=== PATIENT | male | born 1950 | race Caucasian/White ===

== ENCOUNTER → 2016-05-09 | Outpatient (CLI) | payer BC ==
[~2016-05-09] MED LIST: ACET-1257 PO; B-CO-25 PO; CARV25TA2 PO; CHOL1CAP57 PO; CHOL4POW3 PO; CRDCD240 PO; CRG125 PO; DIVA500T3 PO; DXY100 PO; ELQ25 PO; FURO-85 PO; GARL500T PO; GLC/500 PO; GLUCTAB32 PO; HYDR12.55 PO; LEVO1CAP6 PO; LEVO50TA6 PO; LPT40 PO; MISCTAB78 PO; MULT-506 PO; OMEG10007 PO; POTA-74 PO; PRED10TA PO; PRS5 PO; SPRIN INH; SYMIN INH; TAMS0.4C38 PO
--- NOTE | 2016-05-09 16:04 | DIAGNOSTIC IMAGING REPORT ---
SINGLE VIEW PELVIS; SINGLE VIEW RIGHT HIP CLINICAL HISTORY: Right hip pain. FINDINGS: An AP view of the pelvis and a frog-leg view of the right hip are compared to study dated 08/26/2015. The skeletal structures appear osteopenic. A left hip arthroplasty is unchanged in position. There is moderate arthritic change in the right hip with bony overgrowth along the acetabular roof and mild sclerosis. This is similar in appearance to the 08/26/2015 examination. Mild sclerotic change is present in the sacroiliac joints. The overlying soft tissues are within normal limits. Surgical clips are present along the spermatic cord bilaterally. A pelvic phlebolith is identified. IMPRESSION: 1. No acute bony abnormality is seen in the hips or pelvis. 2. Moderate arthritic change in the right hip is similar in appearance to the 08/26/2015 examination. Electronically signed by: Cody Morse M.D. 05/09/2016 4:02 PM Dictated Date/Time: 05/09/2016 4:01 PM
== END | disposition home or self-care (01) ==
LOC: C.RDSM 08:00
PROVIDERS: ATTEND Physical Medicine & Rehabilitation Sports Medicine
DX: M16.11 Unilateral primary osteoarthritis, right hip (principal)

== ENCOUNTER → 2016-11-28 | Outpatient (CLI) | payer BC ==
[~2016-11-28] VITALS: Ht 177.8 cm; Wt 115.3 kg
[2016-11-28 13:59] VITALS: BP 155/90; PULSE 105; Ht 177.8 cm; Wt 115.3 kg
== END | disposition home or self-care (01) ==
LOC: C.NEUR 13:45
PROVIDERS: ATTEND Internal Medicine Pulmonary Disease
DX: G47.33 Obstructive sleep apnea (adult) (pediatric) (principal)

== ENCOUNTER 2016-11-29 12:52 | Inpatient (IN) | payer BC, OTHER ==
[~2016-11-29] VITALS: Ht 177.8 cm; Wt 110.4 kg
[2016-11-29] VITALS (20 sets, daily range): BP systolic 97–146; BP diastolic 60–87; PULSE 60–159; TEMP 37; O2SAT 86–100; BMI 36.6
[~2016-11-29 12:52] MED LIST changes: -CARV25TA2 PO; -CHOL1CAP57 PO; -CRDCD240 PO; -CRG125 PO; -DXY100 PO; -ELQ25 PO; -FURO-85 PO; -GARL500T PO; -GLC/500 PO; -POTA-74 PO; -PRED10TA PO; -SPRIN INH; -SYMIN INH
[2016-11-29] MEDS ORDERED: ALBUT/IPRATROP 3MG/0.5MG NEB 3 ML VIAL INH STA ×3 (13:09→14:23)
[2016-11-29] MEDS ORDERED: METHYLPREDNISOLONE 125 MG VIAL IV STA (13:09)
--- NOTE | 2016-11-29 13:25 | EMERGENCY ROOM VISIT NOTE ---
History First contact with patient: 13:02 Chief Complaint: SHORTNESS OF BREATH Stated Complaint: SOB, LABORED BREATHING Nursing Triage Summary: triage note: Pt ambulatory to triage. pt states "i guess you could say as a result of continued smoking i am having increased shortness of breath." pt reports increased shorntess of breath over the past day and productive cough with clear sputum. History of Present Illness The patient is a 66 year old male who presents to the Emergency Room with complaints of shortness of breath. The patient states that he has some shortness of breath and coughing at baseline that he attributes to the fact that he is a chronic, heavy smoker, however he states over the past few days that his symptoms have become worse. He is increasingly short of breath with exertion and at rest, and states if he lies flat it causes him to go into coughing fits. He is coughing up clear to white phlegm. He denies any chest pain, nausea or vomiting, diaphoresis, dizziness or syncope, or fevers/chills. He denies any leg pain or swelling, recent long travel, recent injury or surgery , or history of blood clots. He does report a history of some broken ribs and a partially collapsed lung in the past, as well as an aortic valve repair by Dr. Duke. He does not use oxygen at home. He reports that he has continued to smoke heavily in spite of being told by his provider to quit, he states he has not been diagnosed with COPD and does not use any daily inhalers. Review of Systems A complete 10 point review of systems was reviewed with the patient with pertinent positives and negatives as per history of present illness. All else were negative. 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 (10) HYPOTHYROIDISM NOS (11) OBESITY, NOS (12) OSTEOARTHROS NOS-PELVIS (13) Parkinson disease (14) PURE HYPERCHOLESTEROLEM Family History Hypertension Social History Smoking Status: Current Every Day Smoker Alcohol Use: none Drug Use: none Marital Status: Housing Status: lives alone Occupation Status: retired Current/Historical Medications Scheduled Atorvastatin (Atorvastatin Calcium), 40 MG PO QPM B-Complex W/ Folic Acid (Super B Complex Maxi), 1 TAB PO QAM Cholecalciferol (Vitamin D3), 1,000 UNITS PO DAILY Cholestyramine (Cholestyramine), 1 DOSE PO QAM Divalproex Sodium (Depakote Er), 500 MG PO QPM Divalproex Sodium (Depakote Er), 1,000 MG PO QAM Finasteride (Finasteride), 5 MG PO QAM Fish Oil (Alden-3), 1,000 MG PO QAM Garlic (Garlic), 500 MG PO DAILY Frgxokggbyi-Turbgzqgpfn-Xe Cho (Glucosamine Chondroitin &), 1 TAB PO QAM Hydrochlorothiazide (Hydrochlorothiazide), 1 TAB PO QAM Levocarnitine L-Tartrate (L-Carnitine), 1,000 MG PO TID Levothyroxine Sodium (Levothyroxine Sodium), 50 MCG PO QAM Misc Natural Products (Osteo Bi-Flex Advanced Do), 1 TAB PO QAM Multivitamin (Multivitamin), 1 TAB PO QAM Tamsulosin Hcl (Flomax), 0.4 MG PO QAM Scheduled PRN Acetaminophen (Tylenol Extra Strength), 500-1,000 MG PO Q6H PRN for Pain Physical Exam Vital Signs Date Time Temp Pulse Resp B/P (MAP) Pulse Ox O2 Delivery O2 Flow Rate FiO2 11/29/16 17:40 112 20 115/69 98 BiPAP 11/29/16 17:39 91 BiPAP 4.0 100 11/29/16 17:16 159 91 100 11/29/16 17:16 162 29 169/106 95 BiPAP 11/29/16 16:50 111 27 191/115 90 Nebulizer 11/29/16 15:07 95 22 163/103 95 Nasal Cannula 4.0 11/29/16 14:00 94 Nasal Cannula 4.0 11/29/16 14:00 94 Nasal Cannula 4.0 11/29/16 13:29 98 11/29/16 12:58 36.7 104 26 173/88 90 Room Air Physical Exam CONSTITUTIONAL: Patient is in mild distress, with labored breathing and tachypneic, respiratory rate 20-30, however he is able to speak in full sentences. He appears mildly dehydrated. Alert and oriented X 4 with normal affect. HEENT: Normocephalic, atraumatic. Pupils equal, round and reactive to light, EOMI. TMs normal. Pharynx normal. Dry mucous membranes NECK: Supple, full active range of motion without discomfort. RESPIRATORY: Diminished throughout with expiratory wheezing, no crackles, rhonchi or stridor. Equal expansion bilaterally. CARDIOVASCULAR: Tachycardic. Regular rhythm with no murmurs, rubs or gallops. Normal peripheral perfusion. No peripheral edema. GASTROINTESTINAL: Soft, nontender, distended, obese. Bowel sounds present in all quadrants. MUSCULOSKELETAL: Full range of motion of all joints without discomfort. INTEGUMENTARY: No rash or other significant dermatologic conditions noted. NEUROLOGIC: Cranial nerves II-XII grossly intact. No focal neurologic deficits noted. Medical Decision & Procedures ER Provider Diagnostic Interpretation: CHEST ONE VIEW PORTABLE CLINICAL HISTORY: EVALUATE RESPIRATORY DISTRESS. DYSPNEA dyspnea COMPARISON STUDY: 09/01/2014 FINDINGS: Increased cardiac size and pulmonary vasculature compared to the prior study. Diaphragms smooth. Very slight body of lateral gastric angle. IMPRESSION: Congestive heart failure. ----- (CHEST FOR PE) ANGIO WITH CT DOSE: 667.82 mGy.cm HISTORY: Chest pain dyspnea TECHNIQUE: Multiaxial CT images of the chest were performed following the intravenous administration of contrast to evaluate the pulmonary arteries. Maximal intensity projection images were also obtained. A dose lowering technique was utilized adhering to the principles of ALARA. COMPARISON STUDY: 06/11/2013 FINDINGS: No evidence of pulmonary embolus. Prominent bronchovascular markings throughout both hemithoraces. Several scattered areas of subsegmental atelectatic change. Mild fatty infiltration of liver. IMPRESSION: 1. Study is negative for pulmonary embolus . 2. findings of congestive failure with scattered areas of subsegmental atelectasis. Laboratory Results 11/29/16 13:48 Red Blood Count 4.38, Mean Corpuscular Volume 95.4, Mean Corpuscular Hemoglobin 32.6, Mean Corpuscular Hemoglobin Concent 34.2, Mean Platelet Volume 9.3, Neutrophils (%) (Auto) 72.2, Lymphocytes (%) (Auto) 17.2, Monocytes (%) (Auto) 9.2, Eosinophils (%) (Auto) 0.8, Basophils (%) (Auto) 0.2, Neutrophils # (Auto) 8.08, Lymphocytes # (Auto) 1.92, Monocytes # (Auto) 1.03, Eosinophils # (Auto) 0.09, Basophils # (Auto) 0.02 11/29/16 13:48 Test 11/29/16 13:48 11/29/16 15:38 11/29/16 17:01 White Blood Count 11.19 K/uL (4.8-10.8) Red Blood Count 4.38 M/uL (4.7-6.1) Hemoglobin 14.3 g/dL (14.0-18.0) Hematocrit 41.8 % (42-52) Mean Corpuscular Volume 95.4 fL (80-100) Mean Corpuscular Hemoglobin 32.6 pg (25-34) Mean Corpuscular Hemoglobin Concent 34.2 g/dl (32-36) Platelet Count 231 K/uL (130-400) Mean Platelet Volume 9.3 fL (7.4-10.4) Neutrophils (%) (Auto) 72.2 % Lymphocytes (%) (Auto) 17.2 % Monocytes (%) (Auto) 9.2 % Eosinophils (%) (Auto) 0.8 % Basophils (%) (Auto) 0.2 % Neutrophils # (Auto) 8.08 K/uL (1.4-6.5) Lymphocytes # (Auto) 1.92 K/uL (1.2-3.4) Monocytes # (Auto) 1.03 K/uL (0.11-0.59) Eosinophils # (Auto) 0.09 K/uL (0-0.5) Basophils # (Auto) 0.02 K/uL (0-0.2) RDW Standard Deviation 48.1 fL (36.4-46.3) RDW Coefficient of Variation 13.9 % (11.5-14.5) Immature Granulocyte % (Auto) 0.4 % Immature Granulocyte # (Auto) 0.05 K/uL (0.00-0.02) Prothrombin Time 10.7 SECONDS (9.0-12.0) Prothromb Time International Ratio 1.0 (0.9-1.1) Activated Partial Thromboplast Time 26.6 SECONDS (21.0-31.0) Partial Thromboplastin Ratio 1.0 Anion Gap 5.0 mmol/L (3-11) Est Creatinine Clear Calc Drug Dose 160.2 ml/min Estimated GFR () 123.2 Estimated GFR (Non- 106.3 BUN/Creatinine Ratio 9.8 (10-20) Calcium Level 9.3 mg/dl (8.5-10.1) Total Bilirubin 0.6 mg/dl (0.2-1) Aspartate Amino Transf (AST/SGOT) 16 U/L (15-37) Alanine Aminotransferase (ALT/SGPT) 33 U/L (12-78) Alkaline Phosphatase 49 U/L (45-117) Troponin I 0.031 ng/ml (0-0.045) Pro-B-Type Natriuretic Peptide 394 pg/ml (0-900) Total Protein 7.4 gm/dl (6.4-8.2) Albumin 3.6 gm/dl (3.4-5.0) Globulin 3.8 gm/dl (2.5-4.0) Albumin/Globulin Ratio 0.9 (0.9-2) Thyroid Stimulating Hormone (TSH) 2.530 uIu/ml (0.300-4.500) Urine Color DK YELLOW Urine Appearance CLEAR (CLEAR) Urine pH 6.0 (4.5-7.5) Urine Specific Martin 1.022 (1.000-1.030) Urine Protein 1+ (NEG) Urine Glucose (UA) TRACE (NEG) Urine Ketones 1+ (NEG) Urine Occult Blood TRACE (NEG) Urine Nitrite NEG (NEG) Urine Bilirubin NEG (NEG) Urine Urobilinogen NEG (NEG) Urine Leukocyte Esterase NEG (NEG) Urine WBC (Auto) 1-5 /hpf (0-5) Urine RBC (Auto) 5-10 /hpf (0-4) Urine Hyaline Casts (Auto) 1-5 /lpf (0-5) Urine Epithelial Cells (Auto) 10-20 /lpf (0-5) Urine Bacteria (Auto) NEG (NEG) Arterial Blood pH 7.31 (7.35-7.45) Arterial Blood Partial Pressure CO2 45 mmHg (35-46) Arterial Blood Partial Pressure O2 45 mm/Hg (80-95) Arterial Blood HCO3 22 mmol/L (19-24) Arterial Blood Oxygen Saturation 74.9 % (90-95) Arterial Blood Base Excess -4.1 mEq/L (-9-1.8) Arterial Blood Gas Delivery NEBULIZER Eh Test POS (POS) Medications Administered Medications (Trade) Dose Ordered Sig/Cesar Route Start Time Stop Time Status Last Admin Dose Admin Albuterol/ Ipratropium (Duoneb) 3 ml NOW STAT INH 11/29/16 13:09 11/29/16 13:12 DC 11/29/16 13:33 3 ML Methylprednisolone Sodium Succinate (Solu-Medrol IV) 125 mg NOW STAT IV 11/29/16 13:09 11/29/16 13:12 DC 11/29/16 13:33 125 MG Albuterol/ Ipratropium (Duoneb) 3 ml NOW STAT INH 11/29/16 14:23 11/29/16 14:25 DC 11/29/16 16:49 3 ML Albuterol/ Ipratropium (Duoneb) 3 ml NOW STAT INH 11/29/16 14:23 11/29/16 14:25 DC 11/29/16 16:49 3 ML Furosemide (Lasix Inj) 40 mg NOW STAT IV 11/29/16 16:38 11/29/16 16:39 DC 11/29/16 17:35 40 MG Nitroglycerin (Nitrostat Tab) 0.4 mg NOW STAT SL 11/29/16 16:57 11/29/16 16:59 DC 11/29/16 17:02 0.4 MG Nitroglycerin (Nitroglycerin 2% Oint) 1 inch NOW ONCE EXT 11/29/16 17:00 11/29/16 17:01 DC 11/29/16 17:02 1 INCH Nitroglycerin (Nitrostat Tab) 0.4 mg NOW STAT SL 11/29/16 17:11 11/29/16 17:12 DC 11/29/16 17:15 0.4 MG Diltiazem HCl (Cardizem Inj) 10 mg NOW STAT IV 11/29/16 17:19 11/29/16 17:20 DC 11/29/16 17:32 10 MG Diltiazem HCl 125 mg/Dextrose 125 ml @ 0 mls/hr Q0M PRN IV 11/29/16 17:30 12/29/16 17:29 11/29/16 17:37 5 MLS/HR ECG Indication: SOB/dyspnea Rate (beats per minute): 97 Rhythm: normal sinus Findings: no acute ischemic change, no ectopy, other (possible left atrial enlargement, Q waves noted in inferior leads which is not new.) Change: no significant change (when compared to EKG from 08/26/2015) Medical Decision CC: Patient presenting with complaint of shortness of breath Interpretation of Labs: Mild leukocytosis, no anemia, hyponatremia, normal renal function, normal liver enzymes and lipase, troponin and BNP within normal limits. ABG with normal pH, currently compensated respiratory acidosis. Differential Diagnosis: Includes, but not limited to COPD exacerbation, CHF, bronchitis, pneumonia, asthma, PE, pulmonary edema, pleural effusion, pneumothorax, aortic dissection Medication Reconciliation: I attest that I have personally reviewed the patient' s current medication list. Vital signs review: I reviewed the patient's vital signs and interpret them as follows: T: Afebrile; BP: Hypertensive; HR: Tachycardic; RR: Tachypneic; Pulse Ox: Hypoxic on room air, improved on 4 L oxygen. Summary: Patient was evaluated at bedside, history of physical exam performed. Patient is noted to be in mild respiratory distress, tachypneic and with labored breathing. He is able to speak in full sentences. He is noted to be 84% on room air on arrival to patient room, placed on 4 L of oxygen and came up to 95% with reported improved comfort. Lungs are diminished throughout, moderate expiratory wheezing heard. No crackles or rales. Heart sounds are normal with no murmurs or gallops, tachycardic rate in the low 100s. Normal pulses all 4 extremities. No peripheral edema noted on exam. EKG reviewed at bedside, normal sinus rhythm with no acute ischemic changes. Orders were placed at bedside for labs including an ABG, UA, chest x-ray, CT chest to evaluate for PE. Duonebs and Solu-Medrol to treat for suspected COPD exacerbation. Patient discussed with Dr. Conley, who agrees with my assessment and plan. Labs reviewed as above, no significant abnormalities. Compensated respiratory acidosis on ABG. Troponin and BNP are WNL. Chest x-ray reviewed, consistent with pulmonary congestion/condition heart failure. CT of the chest pending to evaluate for PE, if this is negative, will plan to diurese the patient. On reassessment after first DuoNeb, patient appears to be somewhat improved and breathing a little more comfortably. Patient to CT. 6:30PM - I reassessed patient, found him to be in the room but not on monitor and on only 2L O2 from transport. Pt desating to 82%, I placed him on 6L and repositioned him, but he continues to have sats of 86-87% and appears more labored. Lungs remain severely diminished with expiratory wheezes. CTA of the chest reviewed, no PE but does appear to have pulmonary congestion consistent with CHF. BP 195/108, respiratory rate 36, heart rate continues to be slightly tachycardic low 100s and sinus rhythm on the monitor. Patient also becoming more anxious. SL ntg and nitro paste ordered. 40mg IV Lasix ordered. Respiratory therapy called to place patient on BiPAP. I spoke with Dr. Mead, who agrees to evaluate the patient for admission. Dr. Conley made aware of patient's clinical condition and my plans for his admission, he agrees. While patient being placed on BiPAP, he went into rapid A. fib with rate in the 180s. Patient received 2 SL nitro, and Cardizem drip was ordered per Dr. Conley, who was also at bedside to evaluate the patient. Dr. Conley spoke with Dr. Mead, patient will be placed in ICU. Patient reassessed multiple times throughout ED stay, he is improving clinically , hypertension resolving with Cardizem drip, he is tolerating BiPAP well with sats 98% and he is much less labored at this time. Heart rate also improved with rates ranging from 110 to 150s. He will continue to be closely monitored, currently stable at time of admission. Medication Reconcilliation Current Medication List: was personally reviewed by me Blood Pressure Screening Patient's blood pressure: Elevated blood pressure Impression Primary Impression: Congestive heart failure Additional Impression: Rapid atrial fibrillation Critical Care I have personally spent greater than 45 minutes of critical care time in the direct management of this patient. This includes bedside care, interpretation of diagnostic studies, and testing, discussion with consultants, patient, and family members, and other required patient management activities. This 45 minutes is in excess of all separately billable procedures. Departure Information Dispostion Admitted as an inpatient Condition FAIR (critical, but stable) Referrals Helen Lion M.D. (PCP) Patient Instructions My [facility] Problem Qualifiers Primary Impression: Congestive heart failure Congestive heart failure type: unspecified congestive heart failure type Congestive heart failure chronicity: acute Qualified Codes: I50.9 - Heart failure, unspecified
[2016-11-29] MEDS ORDERED: OPTIRAY 320 IV PRN (13:30)
[2016-11-29 13:58] LABS: BASO % 0.2 %; BASO ABS # 0.02 K/uL (0-0.2); COMPLETE YES; EOS % 0.8 %; HEMATOCRIT 41.8 % (42-52); IG% 0.4 %; LYMPH % 17.2 %; LYMPH ABS # 1.92 K/uL (1.2-3.4); MEAN CELL VOLUME 95.4 fL (80-100); MEAN CORPUSCULAR HEMOGLOBIN 32.6 pg (25-34); MEAN CORPUSCULAR HGB CONC 34.2 g/dl (32-36); MEAN PLATELET VOLUME 9.3 fL (7.4-10.4); MONO % 9.2 %; NEUT % 72.2 %; PLATELET COUNT 231 K/uL (130-400); RED BLOOD COUNT 4.38 M/uL (4.7-6.1); WHITE BLOOD COUNT 11.19 K/uL (4.8-10.8)
--- NOTE | 2016-11-29 14:02 | DIAGNOSTIC IMAGING REPORT ---
CHEST ONE VIEW PORTABLE CLINICAL HISTORY: EVALUATE RESPIRATORY DISTRESS. DYSPNEA dyspnea COMPARISON STUDY: 09/01/2014 FINDINGS: Increased cardiac size and pulmonary vasculature compared to the prior study. Diaphragms smooth. Very slight body of lateral gastric angle. IMPRESSION: Congestive heart failure The above report was generated using voice recognition software. It may contain grammatical, syntax or spelling errors. Electronically signed by: Mikal Hill M.D. 11/29/2016 2:01 PM Dictated Date/Time: 11/29/2016 2:01 PM
[2016-11-29 14:05] LABS: ARTERIAL BLD GAS O2 SATURATION 94.2 % (90-95); ARTERIAL BLOOD GAS BASE EXCESS 4.5 mEq/L (-9-1.8); ARTERIAL BLOOD GAS HCO3 30 mmol/L (19-24); ARTERIAL BLOOD GAS PO2 74 mm/Hg (80-95)
[2016-11-29 14:06] LABS: ALLEN TEST POS (POS)
[2016-11-29 14:07] LABS: O2 ADMINISTRATION 4L
[2016-11-29] MEDS ORDERED: CHOL1CAP57 PO (14:10)
[2016-11-29] MEDS ORDERED: GARL500T PO (14:10)
[2016-11-29 14:15] LABS: BUN/CREATININE RATIO 9.8 (10-20); CALCIUM 9.3 mg/dl (8.5-10.1); CREATININE 0.57 mg/dl (0.60-1.40); POTASSIUM 3.9 mmol/L (3.5-5.1)
[2016-11-29 14:20] LABS: ALB/GLOB RATIO 0.9 (0.9-2); PROTHROMBIN TIME (PATIENT) 10.7 SECONDS (9.0-12.0)
--- NOTE | 2016-11-29 14:34 | EMERGENCY ROOM VISIT NOTE ---
ED Visit Note First contact with patient: 13:02 The patient was seen and examined with SAE Pope. I agree with the history, physical and findings. Please see the note for disposition and details. I evaluated patient. He was doing relatively well initially after receiving the nebulizer treatments but did have increased work of breathing. Chest x-ray was concerning. The patient underwent CT imaging. No PE was noted no pneumonia but there was concerns for pulmonary edema by radiology report. The patient had increasing shortness of breath and clinically worsened. He was hypoxic. He had to be started on BiPAP. The patient had 2 doses of subungual nitroglycerin given. Nitro paste was applied. Repeat ECG was performed and found the patient to have developed a rapid atrial fibrillation. The patient was started on IV Cardizem drip. I did consult with internal medicine and recommend the patient be admitted to the ICU. The patient was probably evaluated by internal medicine. On reassessment the patient's vital signs improved. He is feeling much better. His hypoxia resolved. I have personally spent greater than 30 minutes of critical care time in the direct management of this patient. This includes bedside care, interpretation of diagnostic studies, and testing, discussion with consultants, patient, and other required patient management activities. This 30 minutes is in excess of all separately billable procedures.
[2016-11-29 16:04] LABS: URINE APPEARANCE CLEAR (CLEAR); URINE BILIRUBIN NEG (NEG); URINE COLOR DK YELLOW; URINE NITRITE NEG (NEG); URINE SPECIFIC GRAVITY 1.022 (1.000-1.030); UROBILINOGEN NEG (NEG)
[2016-11-29 16:07] LABS: MANUAL MICROSCOPIC REQUIRED? NO; REVIEW REQ? NO
--- NOTE | 2016-11-29 16:24 | DIAGNOSTIC IMAGING REPORT ---
(CHEST FOR PE) ANGIO WITH CT DOSE: 667.82 mGy.cm HISTORY: Chest pain dyspnea TECHNIQUE: Multiaxial CT images of the chest were performed following the intravenous administration of contrast to evaluate the pulmonary arteries. Maximal intensity projection images were also obtained. A dose lowering technique was utilized adhering to the principles of ALARA. COMPARISON STUDY: 06/11/2013 FINDINGS: No evidence of pulmonary embolus. Prominent bronchovascular markings throughout both hemithoraces. Several scattered areas of subsegmental atelectatic change. Mild fatty infiltration of liver. IMPRESSION: 1. Study is negative for pulmonary embolus . 2. findings of congestive failure with scattered areas of subsegmental atelectasis. The above report was generated using voice recognition software. It may contain grammatical, syntax or spelling errors. Electronically signed by: Mikal Hill M.D. 11/29/2016 4:23 PM Dictated Date/Time: 11/29/2016 4:20 PM
[2016-11-29] MEDS ORDERED: NITROGLYCERIN 0.4 MG SL PER TAB CHARGE SL STA ×2 (16:57→17:11)
[2016-11-29] MEDS ORDERED: NITROGLYCERIN OINT 2% 1GM PACKET EXT ONE (17:00)
[2016-11-29] MEDS: FUROSEMIDE 40 MG/4 ML VIAL IV STA ×2 (17:03→17:35)
[2016-11-29 17:14] LABS: ARTERIAL BLD GAS O2 SATURATION 74.9 % (90-95); ARTERIAL BLOOD GAS BASE EXCESS -4.1 mEq/L (-9-1.8); ARTERIAL BLOOD GAS HCO3 22 mmol/L (19-24); ARTERIAL BLOOD GAS PO2 45 mm/Hg (80-95); ARTERIAL BLOOD GAS pH 7.31 (7.35-7.45)
[2016-11-29 17:15] LABS: ALLEN TEST POS (POS); O2 ADMINISTRATION NEBULIZER
[2016-11-29] MEDS ORDERED: DILTIAZEM BOLUS / DRIP IV STA ×2 (17:19→17:46)
[2016-11-29] MEDS ORDERED: DILTIAZEM HCL 5 MG/ML 5 ML VIAL IV STA (17:19)
[2016-11-29] MEDS: DILTIAZEM HCL INJ 125 MG in DEXTROSE 5% 100ML IV PRN (17:37)
[2016-11-29] MEDS ORDERED: MoRPHine SULFATE 4 MG/ML 1 ML CARP\\VIAL IV PRN (17:45)
[2016-11-29] MEDS ORDERED: LEVALBUTEROL 1.25MG/0.5ML NEB INH PRN (17:45)
[2016-11-29] MEDS ORDERED: ACETAMINOPHEN 325 MG TAB PO PRN (17:45)
--- NOTE | 2016-11-29 18:28 | History and Physical ---
History & Physical Date & Time of Service: Nov 29, 2016 at 17:40 Chief Complaint: Sob, Labored Breathing Primary Care Physician: Helen Lion M.D. History of Present Illness Source: patient 66 y/o M Hx Bipolar disease, Hypothyroidism, morbid obesity, HTN, HPL, BPH, heavy smoker. Pt presents with a chief complaint of progressive SOB and productive cough. He was notably hypoxic on arrival to the ER, exhibiting labored breathing and wheezing on exam. He had not complained of CP, N/V, fevers. He was placed on BIPAP and sent for a CTA which did not show a PE and was consistent with pulmonary edema. The pt does not have a history of CHF. He was treated for CHF and also for suspected COPD in the ER. While in the ER he developed rapid AF at a rate of up to 180. He remains potentially unstable at the time of admission and will be assigned t the ICU as a result. The pt is a poor historian and could not provide extensive detail regarding his PMH. 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 Status: Chronic (9) HYPOTHYROIDISM NOS Status: Chronic (10) OBESITY, NOS Status: Chronic (11) OSTEOARTHROS NOS-PELVIS Status: Chronic (12) Parkinson disease Status: Chronic (13) PURE HYPERCHOLESTEROLEM Status: Chronic Family History Hypertension Could not obtain Social History Smokes 2 pack daily for > 20 years Smoking Status: Current Every Day Smoker Drug Use: none Marital Status: Occupational Status: retired Immunizations History of Influenza Vaccine: Yes History of Tetanus Vaccine?: Yes History of Pneumococcal: Yes History of Hepatitis B Vaccine: Unknown Multi-Drug Resistant Organisms History of MDRO: No Allergies Coded Allergies: Lamotrigine (Verified Allergy, Intermediate, RASH ON LOWER LEGS, 11/29/16) [place] (Verified Adverse Reaction, Unknown, GI upset, 11/29/16) Venlafaxine (Verified Adverse Reaction, Unknown, hypertension, 11/29/16) [employer] Ziprasidone (Verified Adverse Reaction, Unknown, RHYS, 11/29/16) Home Medications Scheduled Atorvastatin (Atorvastatin Calcium), 40 MG PO QPM B-Complex W/ Folic Acid (Super B Complex Maxi), 1 TAB PO QAM Cholecalciferol (Vitamin D3), 1,000 UNITS PO DAILY Cholestyramine (Cholestyramine), 1 DOSE PO QAM Divalproex Sodium (Depakote Er), 500 MG PO QPM Divalproex Sodium (Depakote Er), 1,000 MG PO QAM Finasteride (Finasteride), 5 MG PO QAM Fish Oil ([place]-3), 1,000 MG PO QAM Garlic (Garlic), 500 MG PO DAILY Ecpabxpiwoo-Gvsygyiknbr-Ro Cho (Glucosamine Chondroitin &), 1 TAB PO QAM Hydrochlorothiazide (Hydrochlorothiazide), 1 TAB PO QAM Levocarnitine L-Tartrate (L-Carnitine), 1,000 MG PO TID Levothyroxine Sodium (Levothyroxine Sodium), 50 MCG PO QAM Misc Natural Products (Osteo Bi-Flex Advanced Do), 1 TAB PO QAM Multivitamin (Multivitamin), 1 TAB PO QAM Tamsulosin Hcl (Flomax), 0.4 MG PO QAM Scheduled PRN Acetaminophen (Tylenol Extra Strength), 500-1,000 MG PO Q6H PRN for Pain Review of Systems Constitutional: No fever, No chills, No sweats Eyes: No worsening of vision, No eye pain ENT: No hearing loss Respiratory: + cough, + sputum, + wheezing, + shortness of breath, + dyspnea on exertion, + dyspnea at rest Cardiovascular: + orthopnea, No chest pain Abdomen: No pain, No nausea, No vomiting Musculoskeletal: No joint pain Genitourinary - Male: No hematuria, No dysuria, No urinary frequency, No urinary urgency Neurologic: No memory loss, No paralysis, No weakness Psychiatric: No depression symptoms Endocrine: No fatigue Hematologic / Lymphatic: No abnormal bleeding/bruising Integumentary: No rash Allergic / Immunologic: No environmental allergies Physical Exam Vital Signs Date Time Temp Pulse Resp B/P (MAP) Pulse Ox O2 Delivery O2 Flow Rate FiO2 11/29/16 17:16 159 91 100 11/29/16 17:16 162 29 169/106 95 BiPAP 11/29/16 16:50 111 27 191/115 90 Nebulizer 11/29/16 15:07 95 22 163/103 95 Nasal Cannula 4.0 11/29/16 14:00 94 Nasal Cannula 4.0 11/29/16 14:00 94 Nasal Cannula 4.0 11/29/16 13:29 98 11/29/16 12:58 36.7 104 26 173/88 90 Room Air General Appearance: + mild distress, + obese Head: normocephalic, atraumatic Eyes: normal inspection ENT: normal ENT inspection, pharynx normal Neck: supple, + pertinent finding (JVD exam limited by habitus) Respiratory/Chest: chest non-tender, lungs clear, no accessory muscle use Cardiovascular: no murmur, normal peripheral pulses, + tachycardia, + irregularly irregular Abdomen/GI: normal bowel sounds, non tender, + distended Back: normal inspection, no CVA tenderness Extremities/Musculoskelatal: + pertinent finding (Venous stasis changes with mild BL edema) Skin: + pertinent finding (Hyperpigmentation consistent with venous stasis - LEs) Diagnostics Laboratory Results Results Past 24 Hours Test 11/29/16 13:48 11/29/16 13:54 11/29/16 15:38 11/29/16 17:01 Range/Units White Blood Count 11.19 4.8-10.8 K/uL Red Blood Count 4.38 4.7-6.1 M/uL Hemoglobin 14.3 14.0-18.0 g/dL Hematocrit 41.8 42-52 % Mean Corpuscular Volume 95.4 80-100 fL Mean Corpuscular Hemoglobin 32.6 25-34 pg Mean Corpuscular Hemoglobin Concent 34.2 32-36 g/dl Platelet Count 231 130-400 K/uL Mean Platelet Volume 9.3 7.4-10.4 fL Neutrophils (%) (Auto) 72.2 % Lymphocytes (%) (Auto) 17.2 % Monocytes (%) (Auto) 9.2 % Eosinophils (%) (Auto) 0.8 % Basophils (%) (Auto) 0.2 % Neutrophils # (Auto) 8.08 1.4-6.5 K/uL Lymphocytes # (Auto) 1.92 1.2-3.4 K/uL Monocytes # (Auto) 1.03 0.11-0.59 K/uL Eosinophils # (Auto) 0.09 0-0.5 K/uL Basophils # (Auto) 0.02 0-0.2 K/uL RDW Standard Deviation 48.1 36.4-46.3 fL RDW Coefficient of Variation 13.9 11.5-14.5 % Immature Granulocyte % (Auto) 0.4 % Immature Granulocyte # (Auto) 0.05 0.00-0.02 K/uL Prothrombin Time 10.7 9.0-12.0 SECONDS Prothromb Time International Ratio 1.0 0.9-1.1 Activated Partial Thromboplast Time 26.6 21.0-31.0 SECONDS Partial Thromboplastin Ratio 1.0 Sodium Level 129 136-145 mmol/L Potassium Level 3.9 3.5-5.1 mmol/L Chloride Level 92 98-107 mmol/L Carbon Dioxide Level 32 21-32 mmol/L Anion Gap 5.0 3-11 mmol/L Blood Urea Nitrogen 6 7-18 mg/dl Creatinine 0.57 0.60-1.40 mg/dl Est Creatinine Clear Calc Drug Dose 160.2 ml/min Estimated GFR () 123.2 Estimated GFR (Non- 106.3 BUN/Creatinine Ratio 9.8 10-20 Random Glucose 139 70-99 mg/dl Calcium Level 9.3 8.5-10.1 mg/dl Total Bilirubin 0.6 0.2-1 mg/dl Aspartate Amino Transf (AST/SGOT) 16 15-37 U/L Alanine Aminotransferase (ALT/SGPT) 33 12-78 U/L Alkaline Phosphatase 49 45-117 U/L Troponin I 0.031 0-0.045 ng/ml Pro-B-Type Natriuretic Peptide 394 0-900 pg/ml Total Protein 7.4 6.4-8.2 gm/dl Albumin 3.6 3.4-5.0 gm/dl Globulin 3.8 2.5-4.0 gm/dl Albumin/Globulin Ratio 0.9 0.9-2 Arterial Blood pH 7.40 7.31 7.35-7.45 Arterial Blood Partial Pressure CO2 50 45 35-46 mmHg Arterial Blood Partial Pressure O2 74 45 80-95 mm/Hg Arterial Blood HCO3 30 22 19-24 mmol/L Arterial Blood Oxygen Saturation 94.2 74.9 90-95 % Arterial Blood Base Excess 4.5 -4.1 -9-1.8 mEq/L Arterial Blood Gas Delivery 4L NEBULIZER Eh Test POS POS POS Urine Color DK YELLOW Urine Appearance CLEAR CLEAR Urine pH 6.0 4.5-7.5 Urine Specific [place] 1.022 1.000-1.030 Urine Protein 1+ NEG Urine Glucose (UA) TRACE NEG Urine Ketones 1+ NEG Urine Occult Blood TRACE NEG Urine Nitrite NEG NEG Urine Bilirubin NEG NEG Urine Urobilinogen NEG NEG Urine Leukocyte Esterase NEG NEG Urine WBC (Auto) 1-5 0-5 /hpf Urine RBC (Auto) 5-10 0-4 /hpf Urine Hyaline Casts (Auto) 1-5 0-5 /lpf Urine Epithelial Cells (Auto) 10-20 0-5 /lpf Urine Bacteria (Auto) NEG NEG Diagnostic Radiology CTA: 1. Study is negative for pulmonary embolus . 2. findings of congestive failure with scattered areas of subsegmental atelectasis. EKG AF - RV - questionable lateral depressions Impression Assessment and Plan 66 y/o M Hx Bipolar disease, Hypothyroidism, morbid obesity, HTN, HPL, BPH, heavy smoker. Pt presents with a chief complaint of progressive SOB and productive cough. He was notably hypoxic on arrival to the ER, exhibiting labored breathing and wheezing on exam. He had not complained of CP, N/V, fevers. He was placed on BIPAP and sent for a CTA which did not show a PE and was consistent with pulmonary edema. He was treated for CHF and also for suspected COPD in the ER. While in the ER he developed rapid AF at a rate of up to 180. 1) CHF - new onset - treated with Lasix, BIPAP, NTG - we will obtain an echo and request a cardiology consult. Admitted with CHF protocol - I/O, daily weight, serial trop. 2) Rapid AF - Placed on a Cardizem drip - would switch over to B armida due to CHF when stabilized. Placed on full dose Heparin - would merit anticoagulation on discharge. 3) Suspected COPD - Hypoxia, wheezing - smokes 2 packs/day - no previous diagnosis of lung disease. He is receiving nebs and BIPAP presently. Received a dose of steroids in ER - would continue if hypoxia did not resolve with diuresis. 4) HPL - continue stati therapy 5) BPH - Finasteride, Flomax 6) Bipolar - continue Depakote 7) Hyponatremia on initial labs - will repeat BMP following diuresis - this was not present on previous admissions although we do not ave a recent - would need workup however, urine values may be spurious due to diuretic use. 8) Hypothyroid - cont Synthroid - TSH pending 9) Pt is aware of the hazards of smoking and stated that he would likel to cut down. Full code - Heparin prophylaxis Totla time for this admit including review of labs, meds, EKG, imaging - discussion with pt, ICU and ER attendings - 45 min inc critical care time Level of Care Telemetry Resuscitation Status FULL RESUSCITATION VTE Prophylaxis Given or contraindicated: Other Anticoagulation
[2016-11-29] MEDS ORDERED: HEPARIN IV BOLUS 7,000 UNIT in SYRINGE 0 ML IV ONE (19:30)
[2016-11-29] MEDS ORDERED: AZITHROMYCIN IV 250 MG in DEXTROSE 5% 250ML 250 ML IV ONE (20:00)
[2016-11-29] MEDS ORDERED: BUDESONIDE/FORMOTEROL FUMARATE 160/4.5 60 PUFFS/INHALER INH ONE (20:00)
[2016-11-29] MEDS: ALBUT/IPRATROP 3MG/0.5MG NEB 3 ML VIAL INH SCH (20:05)
[2016-11-29] MEDS: HEPARIN 25,000 UNIT/500ML D5W 500 ML IV PRN (20:25)
[2016-11-29] MEDS: METHYLPREDNISOLONE IV 60 MG in SYRINGE 0 ML IV SCH (20:26)
[2016-11-29] MEDS: DIVALPROEX 500 MG EXTENDED RELEASE TAB PO SCH (21:15)
[2016-11-29] MEDS: ATORVASTATIN 40 MG TAB PO SCH (21:15)
[2016-11-29] MEDS: NITROGLYCERIN OINT 2% 1GM PACKET EXT SCH (21:16)
[2016-11-30] VITALS (38 sets, daily range): BP systolic 100–141; BP diastolic 57–85; PULSE 64–98; TEMP 36.6–37; O2SAT 90–98
[2016-11-30] MEDS ORDERED: PHARMACY GLYCEMIC MGMT CONSULT PRN (00:45)
[2016-11-30] MEDS ORDERED: INSULIN ASPART 100 UNITS/ML 3 ML PEN SC STA (00:49)
[2016-11-30] MEDS ORDERED: LANTUS PER UNIT CHARGE SQ STA (00:49)
[2016-11-30] MEDS ORDERED: GLUCOSE 10 TABS/TUBE PO PRN (01:00)
[2016-11-30] MEDS ORDERED: DEXTROSE 50% 50 ML SYR IV PRN (01:00)
[2016-11-30] MEDS ORDERED: GLUCAGON FOR INJ 1 MG VIAL SQ PRN (01:00)
[2016-11-30] MEDS ORDERED: GLUCOSE 40% GEL 15 GM TUBE PO PRN (01:00)
[2016-11-30] MEDS: METHYLPREDNISOLONE IV 60 MG in SYRINGE 0 ML IV SCH ×2 (01:02→08:47)
[2016-11-30] MEDS: ALBUT/IPRATROP 3MG/0.5MG NEB 3 ML VIAL INH SCH ×2 (01:50→07:31)
[2016-11-30 02:55] LABS: PARTIAL THROMBOPLASTIN RATIO 1.9
[2016-11-30] MEDS ORDERED: INSULIN ASPART 100 UNITS/ML 3 ML PEN SC SCH (04:00)
[2016-11-30] MEDS: NITROGLYCERIN OINT 2% 1GM PACKET EXT SCH ×4 (04:59→21:19)
[2016-11-30] MEDS: LEVOTHYROXINE 50 MCG TAB PO SCH (05:02)
[2016-11-30 05:58] LABS: COMPLETE YES; HEMATOCRIT 40.4 % (42-52); IG% 0.4 %; LYMPH % 15.9 %; LYMPH ABS # 1.21 K/uL (1.2-3.4); MEAN CELL VOLUME 97.6 fL (80-100); MEAN CORPUSCULAR HEMOGLOBIN 31.9 pg (25-34); MEAN CORPUSCULAR HGB CONC 32.7 g/dl (32-36); MEAN PLATELET VOLUME 9.6 fL (7.4-10.4); MONO % 3.8 %; NEUT % 79.9 %; PLATELET COUNT 228 K/uL (130-400); RED BLOOD COUNT 4.14 M/uL (4.7-6.1); WHITE BLOOD COUNT 7.63 K/uL (4.8-10.8)
[2016-11-30 06:32] LABS: BUN/CREATININE RATIO 20.2 (10-20); CALCIUM 8.5 mg/dl (8.5-10.1); CREATININE 0.75 mg/dl (0.60-1.40); POTASSIUM 4.8 mmol/L (3.5-5.1)
[2016-11-30 06:42] LABS: CHOLESTEROL/HDL RATIO 3.4; MAGNESIUM 1.9 mg/dl (1.8-2.4); PHOSPHORUS 4.7 mg/dl (2.5-4.9)
[2016-11-30] MEDS ORDERED: PERFLUTREN LIPID MICROSPHERE (DEFINITY) IV ONE (07:42)
[2016-11-30] MEDS: BUDESONIDE/FORMOTEROL FUMARATE 160/4.5 60 PUFFS/INHALER INH SCH ×2 (08:47→19:28)
[2016-11-30] MEDS: TAMSULOSIN HCL 0.4 MG CAP PO SCH (08:48)
[2016-11-30] MEDS: FINASTERIDE 5 MG TAB PO SCH (08:48)
[2016-11-30] MEDS: OMEGA-3 (PURIFIED FISH OIL) 1 GM CAP PO SCH (08:48)
[2016-11-30] MEDS: DIVALPROEX 500 MG EXTENDED RELEASE TAB PO SCH ×2 (08:48→19:36)
[2016-11-30] MEDS: INSULIN ASPART 100 UNITS/ML 3 ML PEN SC SCH ×4 (08:52→21:22)
[2016-11-30] MEDS ORDERED: INSULIN GLARGINE SOLOSTAR 100 UNITS/ML 3 ML PEN SC ONE (09:00)
[2016-11-30] MEDS ORDERED: INSULIN GLARGINE SOLOSTAR 100 UNITS/ML 3 ML PEN SC SCH ×2 (09:00→21:00)
--- NOTE | 2016-11-30 10:02 | Pharmacy Progress Note ---
Glycemic Control Intl Consult Date of Service Nov 30, 2016. Scope Glycemic Pharmacist consulted by Dr Coyne on 11/30/16 for glycemic control and to write orders per formerly [facility] inpatient glycemic control protocol Objective Weight (Kilograms): 115.800 Accuchecks BSG (last 24hrs): Test 11/29/16 13:48 11/30/16 00:28 11/30/16 04:59 11/30/16 05:43 Random Glucose 139 mg/dl (70-99) 242 mg/dl (70-99) Bedside Glucose 241 mg/dl (70-99) 232 mg/dl (70-99) Laboratory Data (last 24hrs) Test 11/29/16 13:48 11/30/16 05:43 11/30/16 09:33 Anion Gap 5.0 mmol/L 9.0 mmol/L BUN/Creatinine Ratio 9.8 20.2 Blood Urea Nitrogen 6 mg/dl 15 mg/dl Creatinine 0.57 mg/dl 0.75 mg/dl Potassium Level 3.9 mmol/L 4.8 mmol/L Sodium Level 129 mmol/L 128 mmol/L White Blood Count 11.19 K/uL 7.63 K/uL Red Blood Count 4.38 M/uL 4.14 M/uL Hemoglobin 14.3 g/dL 13.2 g/dL Hematocrit 41.8 % 40.4 % Mean Corpuscular Volume 95.4 fL 97.6 fL Mean Corpuscular Hemoglobin 32.6 pg 31.9 pg Mean Corpuscular Hemoglobin Concent 34.2 g/dl 32.7 g/dl Platelet Count 231 K/uL 228 K/uL Mean Platelet Volume 9.3 fL 9.6 fL Neutrophils (%) (Auto) 72.2 % 79.9 % Lymphocytes (%) (Auto) 17.2 % 15.9 % Monocytes (%) (Auto) 9.2 % 3.8 % Eosinophils (%) (Auto) 0.8 % 0.0 % Basophils (%) (Auto) 0.2 % 0.0 % Neutrophils # (Auto) 8.08 K/uL 6.10 K/uL Lymphocytes # (Auto) 1.92 K/uL 1.21 K/uL Monocytes # (Auto) 1.03 K/uL 0.29 K/uL Eosinophils # (Auto) 0.09 K/uL 0.00 K/uL Basophils # (Auto) 0.02 K/uL 0.00 K/uL HbA1c Test 11/30/16 09:33 Recent Pertinent Medications Outpatient Anti-diabetic Regimen: * n/a * A1c = 6.4 % in 02/2015, current one pending The patient is currently receiving: * Basal insulin: Lantus 10 units x 1 ~0100 this AM * Correctional Insulin: Novolog Correction per scale ACHS Goal Range: Low 110 mg/dL - High 150 mg/dL Correction Factor: 15 mg/dL/unit * Prandial insulin: Per carb ratio of 1 unit per 7 grams CHO consumed Risk Factors for Insulin Resistance: * Steroids: Solu-medrol 60 mg IV q6h * Infection: COPD exacerbation * IVF: heparin drip and Cardizem drip mixed in dextrose * Diet: AHA/ low sodium diet ordered Assessment & Plan ASSESSMENT: * 66 y/o male admitted with CHF exacerbation and elevated BSGs, no reported history of diabetes but did have an A1c in the pre-diabetic range back in 2014 * Current stressors as noted above so will plan to initiate patient on SQ basal/ bolus insulin as per insulin calculator estimates using patient's weight and stress level of 2 * ADA & AACE recommend a goal blood sugar range 140-180 mg/dl for the majority of critically ill & non-critically ill patients. However, more stringent targets may be selected in individual cases. Will utilize more stringent goal of 110-150mg/dl based on patient age & comorbidities. Additionally, tighter glycemic control is warranted to facilitate wound/infection healing. PLAN FOR INPATIENT GLYCEMIC CONTROL: * Give additional 10 units of Lantus x 1 this AM, then increase to 20 units BID * Continue correction factor of 15 mg/dl/unit * Continue carb ratio of 1 unit per 7 grams CHO consumed * Continue goal range of Low 110 mg/dL - High 150 mg/dL * A1c w/ AM labs * Please note that the plan above was derived based on current level of insulin resistance and hospital stress. These recommendations are appropriate for inpatient admission only. Plan of care upon discharge will need to be reassessed to avoid potential outpatient hypo/hyperglycemia. Thank you.
[2016-11-30] MEDS: CHOLESTYRAMINE LIGHT 4 GM PKT PO SCH (10:24)
--- NOTE | 2016-11-30 10:35 | ECHOCARDIOGRAM REPORT ---
*NOTICE TO RECEIVING LIBERTARIAN AGENCY This information is strictly Confidential and protected under [place] law. [place] law prohibits you from making any further disclosure of this information unless further disclosure is expressly permitted by the written consent of the person to whom it pertains or is authorized by law. A general authorization for the release of medical or other information is not sufficient for this purpose. Hospital accepts no responsibility if the information is made available to any other person, INCLUDING THE PATIENT. Interpretation Summary * Conclusions -- * Technically limited study despite use of Definity ultrasound contrast. * 1. Normal LV size. Mild concentric LVH. * 2. Mild global LV dysfunction. LVEF 40-45%. * 3. RV not well visualized. RV appears borderline enlarged. RV function normal. * 4. No significant valvular pathology. * 5. Dilated IVC. Est RA 15 mmHg. * 6. No prior studies for comparison. Procedure Details * A complete two-dimensional transthoracic echocardiogram was performed (2D, M-mode, Doppler and color flow Doppler). * The study was technically difficult. * There were technical limitations due to patient'sbody habitus * A contrast injection of Definity was performed to improve assessment of LV function. * Contrast was injected into an intravenous site in the right arm. * One vial of Definity ultrasound contrast was diluted in normal saline to a total volume of 10 ml. A total of '5' ml of solution was administered during imaging. * Lot # [id number] of Definity utilized for procedure. * Expiration date . * The attending nurse who injected the contrast agent was MURPHY Dominique. Left Ventricle * The left ventricle is grossly normal size. * There is mild concentric left ventricular hypertrophy. * Ejection Fraction = 40-45%. * There is mild global hypokinesis of the left ventricle. Right Ventricle * The right ventricle is not well visualized. * Appears mildly dilated * The right ventricular systolic function is normal as assessed by tricuspid annular plane systolic excursion (TAPSE) (normal >1.5 cm). Atria * The left atrial size is normal. * The right atrium is mildly dilated. * No ASD detected; PFO is not assessed. Mitral Valve * The mitral valve is grossly normal. * There is mild mitral annular calcification. * There is no mitral valve stenosis. * Significant mitral regurgitation is absent. Tricuspid Valve * The tricuspid valve is not well visualized. * There is trace tricuspid regurgitation. Aortic Valve * The aortic valve is not well visualized. * No hemodynamically significant valvular aortic stenosis. * There is no significant aortic regurgitation. Pulmonic Valve * The pulmonary valve is inadequately visualized, but the Doppler data is adequate for interpretation. * There is no pulmonic valvular stenosis. * There is no significant pulmonary regurgitation. Great Vessels * The aortic root and proximal ascending aorta are normal sized. Pericardium/Pleural * There is no pericardial effusion. Great Vessels * Dilated inferior vena cava with reduced collapsability with sniff indicates an elevated right atrial pressure of 15 mmHg MMode 2D Measurements and Calculations IVSd 1.5 cm IVSs 1.6 cm LVIDd 5.3 cm LVIDs 4.3 cm LVPWd 1.2 cm LVPWs 1.8 cm IVS/LVPW 1.3 FS 19.1 % EDV(Teich) 137.2 ml ESV(Teich) 83.8 ml EF(Teich) 38.9 % EDV(cubed) 151.6 ml ESV(cubed) 80.4 ml EF(cubed) 47.0 % % IVS thick 9.4 % % LVPW thick 52.4 % LV mass(C)d 295.5 grams LV mass(C)dI 127.7 grams/m\S\2 LV mass(C)s 313.7 grams LV mass(C)sI 135.5 grams/m\S\2 SV(Teich) 53.4 ml SI(Teich) 23.1 ml/m\S\2 SV(cubed) 71.2 ml SI(cubed) 30.8 ml/m\S\2 Ao root diam 3.6 cm Ao root area 10.0 cm\S\2 ACS 1.2 cm LA dimension 4.3 cm asc Aorta Diam 3.5 cm LA/Ao 1.2 LVOT diam 2.3 cm LVOT area 4.3 cm\S\2 LVAd ap4 32.2 cm\S\2 LVLd ap4 8.0 cm EDV(MOD-sp4) 104.0 ml LVAs ap4 23.3 cm\S\2 LVLs ap4 7.5 cm ESV(MOD-sp4) 58.6 ml EF(MOD-sp4) 43.7 % LVAd ap2 20.5 cm\S\2 LVLd ap2 7.1 cm EDV(MOD-sp2) 47.1 ml LVAs ap2 15.2 cm\S\2 LVLs ap2 6.8 cm ESV(MOD-sp2) 26.8 ml EF(MOD-sp2) 43.1 % SV(MOD-sp4) 45.4 ml SI(MOD-sp4) 19.6 ml/m\S\2 SV(MOD-sp2) 20.3 ml SI(MOD-sp2) 8.8 ml/m\S\2 Doppler Measurements and Calculations MV E max porfirio 113.2 cm/sec MV A max porfirio 45.3 cm/sec MV E/A 2.5 MV dec time 0.14 sec Ao V2 max 159.6 cm/sec Ao max PG 10.2 mmHg Ao max PG (full) 4.8 mmHg ANG(V,A) 3.2 cm\S\2 ANG(V,D) 3.2 cm\S\2 LV V1 max PG 5.4 mmHg LV V1 max 116.3 cm/sec PA V2 max 120.2 cm/sec PA max PG 5.8 mmHg PA acc slope 630.3 cm/sec\S\2 PA acc time 0.12 sec PA pr(Accel) 26.7 mmHg
--- NOTE | 2016-11-30 10:56 | Cardiology Consultation ---
Cardiology Consultation Date of Consultation: Nov 30, 2016. Requesting Physician: Dr. Mead Reason for Consultation: Atrial fibrillation, congestive heart failure Pt evaluation today including: conversation w/ patient, physical exam, lab review, review of studies, review of inpatient medication list History of Present Illness This is a very pleasant 66-year-old gentleman who has a history of obesity, hypothyroidism, hypertension but no known cardiac abnormalities. He presented with shortness of breath and cough, was noted to be hypoxic in the emergency room which was probably due to pulmonary edema. He does not have a history of congestive heart failure. He then developed atrial fibrillation while in the emergency room, and therefore was admitted. He was in atrial fibrillation from around 5 PM until around 8 PM on 11/29/2016, often with heart rates of 160-180 bpm. On discussion with him today he thinks he might of had this before, although he can't tell me when or under what circumstances. He recalls having brief palpitations at times, these sound more like premature beats but could be his atrial arrhythmia. He was not aware of the arrhythmia that he can recall while in the emergency room. Today he has no complaints, he is not short of breath and is not having palpitations. Past Medical/Surgical History (1) Ribs, multiple fractures (2) Closed head injury (3) Splenic laceration (4) Chronic subdural hematoma (5) AAA (abdominal aortic aneurysm) without rupture (6) PURE HYPERCHOLESTEROLEM (7) OSTEOARTHROS NOS-PELVIS (8) OBESITY, NOS (9) HYPOTHYROIDISM NOS (10) HYPERTENSION NOS (11) BIPOLAR DISORDER, UNSPECIFIED Family History Hypertension Social History Smoking Status: Current Every Day Smoker History of Alcohol Use: Yes (RARELY) Review of Systems Constitutional: No fever, No weight loss, No weakness Respiratory: + shortness of breath, No cough, No wheezing, No dyspnea on exertion Cardiac: No chest pain, No orthopnea, No PND, No edema, No palpitations Abdomen: No pain, No nausea, No vomiting, No diarrhea, No GI bleeding Male : No urinary frequency, No nocturia more than once/night, No slowing stream, No sexual dysfunction Neurologic: No paralysis, No weakness, No numbness/tingling, No balance problems Heme: No abnormal bleeding/bruising, No clotting problems Endo: No fatigue Skin: No problem reported All Other Systems: Reviewed and Negative Allergies Coded Allergies: Lamotrigine (Verified Allergy, Intermediate, RASH ON LOWER LEGS, 11/29/16) [place] (Verified Adverse Reaction, Unknown, GI upset, 11/29/16) Venlafaxine (Verified Adverse Reaction, Unknown, hypertension, 11/29/16) [facility] Ziprasidone (Verified Adverse Reaction, Unknown, SHAKES, 11/29/16) Medications Current Inpatient Medications Medications (Trade) Dose Ordered Sig/Cesar Route Start Time Stop Time Status Last Admin Dose Admin Ioversol (Optiray 320) 111 ml UD PRN IV 11/29/16 13:30 12/03/16 13:29 Diltiazem HCl 125 mg/Dextrose 125 ml @ 0 mls/hr Q0M PRN IV 11/29/16 17:30 12/29/16 17:29 11/29/16 17:37 5 MLS/HR Acetaminophen (Tylenol Tab) 650 mg Q4H PRN PO 11/29/16 17:45 12/29/16 17:44 Nitroglycerin (Nitroglycerin 2% Oint) 1 inch Q6H EXT 11/29/16 22:00 12/29/16 21:59 11/30/16 10:24 1 INCH Levalbuterol (Xopenex 1.25MG/ 0.5ML Neb) 1.25 mg Q4H PRN INH 11/29/16 17:45 12/29/16 17:44 Albuterol/ Ipratropium (Duoneb) 3 ml Q6R INH 11/29/16 21:00 12/29/16 20:59 11/30/16 07:31 3 ML Morphine Sulfate (MoRPHine SULFATE INJ) 4 mg Q2H PRN IV 11/29/16 17:45 12/13/16 17:44 Atorvastatin Calcium (Lipitor Tab) 40 mg QPM PO 11/29/16 21:00 12/29/16 20:59 11/29/16 21:15 40 MG Divalproex Sodium (Depakote Extended Rel Tab) 1,000 mg QAM PO 11/30/16 09:00 12/30/16 08:59 11/30/16 08:48 1,000 MG Divalproex Sodium (Depakote Extended Rel Tab) 500 mg QPM PO 11/29/16 21:00 12/29/16 20:59 11/29/16 21:15 500 MG Finasteride (Proscar Tab) 5 mg QAM PO 11/30/16 09:00 12/30/16 08:59 11/30/16 08:48 5 MG Fish Oil ([place]-3 (Purified Fish Oil) Cap) 1 gm QAM PO 11/30/16 09:00 12/30/16 08:59 11/30/16 08:48 1 GM Levothyroxine Sodium (Synthroid Tab) 50 mcg DAILYBB PO 11/30/16 06:00 12/30/16 05:59 11/30/16 05:02 50 MCG Tamsulosin HCl (Flomax Cap) 0.4 mg QAM PO 11/30/16 09:00 12/30/16 08:59 11/30/16 08:48 0.4 MG Cholestyramine Resin (Questran Powder Light) 1 gm DAILY@1000 PO 11/30/16 10:00 12/30/16 09:59 11/30/16 10:24 1 GM Budesonide/ Formoterol Fumarate (Symbicort 160/ 4.5 Inh) 2 puffs BID INH 11/30/16 09:00 12/30/16 08:59 11/30/16 08:47 2 PUFFS Methylprednisolone Sodium Succinate 60 mg/Syringe 0.96 ml @ 1.5 mls/min Q6H IV 11/29/16 20:00 12/29/16 19:59 11/30/16 08:47 1.5 MLS/MIN Azithromycin 250 mg/Dextrose 252.5 ml @ 125 mls/hr DAILY@2000 IV 11/30/16 20:00 12/05/16 22:02 Heparin Sodium/ Dextrose 500 ml @ 32 mls/hr [id number] PRN IV 11/29/16 19:30 12/29/16 19:29 11/29/16 20:25 32 MLS/HR Miscellaneous Information (Consult Glycemic Management Pharmacy) 1 ea DAILY PRN N/A 11/30/16 00:45 12/30/16 00:44 Glucose (Glucose 40% Gel) 15-30 GRAMS 15 GRAMS... UD PRN PO 11/30/16 01:00 12/30/16 00:59 Glucose (Glucose Chew Tab) 4-8 Tablets 4 Tabl... UD PRN PO 11/30/16 01:00 12/30/16 00:59 Dextrose (Dextrose 50% 50ML Syringe) 25-50ML OF 50% DW IV FOR... UD PRN IV 11/30/16 01:00 12/30/16 00:59 Glucagon (Glucagon Inj) 1 mg UD PRN SQ 11/30/16 01:00 12/30/16 00:59 Insulin Aspart (novoLOG ASPART) SLIDING SCALE ACHS SC 11/30/16 06:45 12/30/16 06:44 11/30/16 08:52 15 UNITS Insulin Glargine (Lantus Solostar Pen) 20 units BID SC 11/30/16 09:00 12/30/16 08:59 Future hold Diltiazem HCl (Cardizem Tab) 60 mg TID PO 11/30/16 14:00 12/30/16 13:59 Physical Exam Vital Signs Past 12 Hours Date Time Temp Pulse Resp B/P (MAP) Pulse Ox O2 Delivery O2 Flow Rate FiO2 11/30/16 10:00 36.8 78 17 118/59 (78) 92 Nasal Cannula 6.0 11/30/16 08:00 92 Nasal Cannula 6.0 11/30/16 08:00 36.8 85 22 132/83 (99) 92 Nasal Cannula 6.0 11/30/16 07:32 93 97 70 11/30/16 07:31 93 24 97 BiPAP/CPAP 70 11/30/16 06:02 82 18 141/85 (103) 97 BiPAP 11/30/16 05:45 84 19 124/81 (95) 94 BiPAP 11/30/16 05:30 70 14 120/79 (93) 93 BiPAP 11/30/16 05:15 69 15 117/73 (88) 97 BiPAP 11/30/16 05:00 73 14 128/81 (97) 95 BiPAP 11/30/16 04:45 70 16 118/73 (88) 97 BiPAP 11/30/16 04:30 83 19 134/85 (101) 97 BiPAP 11/30/16 04:15 81 17 131/84 (100) 97 BiPAP 11/30/16 04:00 36.9 67 15 105/68 (80) 96 BiPAP 11/30/16 04:00 BiPAP 80 11/30/16 03:30 71 14 111/66 (81) 98 BiPAP 11/30/16 03:00 74 16 117/69 (85) 96 BiPAP 11/30/16 02:30 66 15 104/64 (77) 97 BiPAP 11/30/16 02:00 69 17 105/66 (79) 95 BiPAP 11/30/16 01:50 71 16 96 BiPAP/CPAP 70 11/30/16 01:50 71 96 70 11/30/16 01:30 76 18 115/71 (86) 95 BiPAP 11/30/16 01:00 66 17 108/63 (78) 95 BiPAP 11/30/16 00:30 68 20 112/73 (86) 97 BiPAP 11/30/16 00:01 BiPAP 80 11/30/16 00:00 37.0 64 20 100/61 (74) 95 BiPAP 11/29/16 23:30 62 17 103/64 (77) 96 BiPAP 11/29/16 23:03 63 96 70 11/29/16 23:00 63 18 97/63 (74) 96 BiPAP Constitutional: General Apperance: heathly-appearing Level of Distress: NAD Psychiatric: Mental Status: active & alert Head: normocephalic Eyes: EOM: EOMI ENMT: normal ENT inspection, hearing grossly normal Neck: supple, no masses Lungs: Respiratory effort: no dyspnea, good air movement Auscultation: breath sounds normal, no wheezing Cardiovascular: Heart Auscultation: RRR, no murmurs, no rubs, no gallops Peripheral Pulses: Bruits: none appreciated Abdomen: Bowel Sounds: normal Inspection & Palpation: soft, no tenderness, guarding & rebound, no masses Musculoskeletal: normal strength (5/5 throughout) Extremities: no edema Neurologic: Cranial Nerves: grossly intact Sensation: grossly intact Data Laboratory Results: Last 24 Hours Test 11/29/16 13:48 11/29/16 13:54 11/29/16 15:38 11/29/16 17:01 White Blood Count 11.19 K/uL Red Blood Count 4.38 M/uL Hemoglobin 14.3 g/dL Hematocrit 41.8 % Mean Corpuscular Volume 95.4 fL Mean Corpuscular Hemoglobin 32.6 pg Mean Corpuscular Hemoglobin Concent 34.2 g/dl Platelet Count 231 K/uL Mean Platelet Volume 9.3 fL Neutrophils (%) (Auto) 72.2 % Lymphocytes (%) (Auto) 17.2 % Monocytes (%) (Auto) 9.2 % Eosinophils (%) (Auto) 0.8 % Basophils (%) (Auto) 0.2 % Neutrophils # (Auto) 8.08 K/uL Lymphocytes # (Auto) 1.92 K/uL Monocytes # (Auto) 1.03 K/uL Eosinophils # (Auto) 0.09 K/uL Basophils # (Auto) 0.02 K/uL RDW Standard Deviation 48.1 fL RDW Coefficient of Variation 13.9 % Immature Granulocyte % (Auto) 0.4 % Immature Granulocyte # (Auto) 0.05 K/uL Prothrombin Time 10.7 SECONDS Prothromb Time International Ratio 1.0 Activated Partial Thromboplast Time 26.6 SECONDS Partial Thromboplastin Ratio 1.0 Sodium Level 129 mmol/L Potassium Level 3.9 mmol/L Chloride Level 92 mmol/L Carbon Dioxide Level 32 mmol/L Anion Gap 5.0 mmol/L Blood Urea Nitrogen 6 mg/dl Creatinine 0.57 mg/dl Est Creatinine Clear Calc Drug Dose 160.2 ml/min Estimated GFR () 123.2 Estimated GFR (Non- 106.3 BUN/Creatinine Ratio 9.8 Random Glucose 139 mg/dl Calcium Level 9.3 mg/dl Total Bilirubin 0.6 mg/dl Aspartate Amino Transf (AST/SGOT) 16 U/L Alanine Aminotransferase (ALT/SGPT) 33 U/L Alkaline Phosphatase 49 U/L Troponin I 0.031 ng/ml Pro-B-Type Natriuretic Peptide 394 pg/ml Total Protein 7.4 gm/dl Albumin 3.6 gm/dl Globulin 3.8 gm/dl Albumin/Globulin Ratio 0.9 Thyroid Stimulating Hormone (TSH) 2.530 uIu/ml Arterial Blood pH 7.40 7.31 Arterial Blood Partial Pressure CO2 50 mmHg 45 mmHg Arterial Blood Partial Pressure O2 74 mm/Hg 45 mm/Hg Arterial Blood HCO3 30 mmol/L 22 mmol/L Arterial Blood Oxygen Saturation 94.2 % 74.9 % Arterial Blood Base Excess 4.5 mEq/L -4.1 mEq/L Arterial Blood Gas Delivery 4L NEBULIZER Eh Test POS POS Urine Color DK YELLOW Urine Appearance CLEAR Urine pH 6.0 Urine Specific [place] 1.022 Urine Protein 1+ Urine Glucose (UA) TRACE Urine Ketones 1+ Urine Occult Blood TRACE Urine Nitrite NEG Urine Bilirubin NEG Urine Urobilinogen NEG Urine Leukocyte Esterase NEG Urine WBC (Auto) 1-5 /hpf Urine RBC (Auto) 5-10 /hpf Urine Hyaline Casts (Auto) 1-5 /lpf Urine Epithelial Cells (Auto) 10-20 /lpf Urine Bacteria (Auto) NEG Test 11/29/16 23:24 11/30/16 00:28 11/30/16 02:31 11/30/16 04:59 Troponin I 0.031 ng/ml Bedside Glucose 241 mg/dl 232 mg/dl Activated Partial Thromboplast Time 50.3 SECONDS Partial Thromboplastin Ratio 1.9 Test 11/30/16 05:43 11/30/16 09:33 White Blood Count 7.63 K/uL Red Blood Count 4.14 M/uL Hemoglobin 13.2 g/dL Hematocrit 40.4 % Mean Corpuscular Volume 97.6 fL Mean Corpuscular Hemoglobin 31.9 pg Mean Corpuscular Hemoglobin Concent 32.7 g/dl Platelet Count 228 K/uL Mean Platelet Volume 9.6 fL Neutrophils (%) (Auto) 79.9 % Lymphocytes (%) (Auto) 15.9 % Monocytes (%) (Auto) 3.8 % Eosinophils (%) (Auto) 0.0 % Basophils (%) (Auto) 0.0 % Neutrophils # (Auto) 6.10 K/uL Lymphocytes # (Auto) 1.21 K/uL Monocytes # (Auto) 0.29 K/uL Eosinophils # (Auto) 0.00 K/uL Basophils # (Auto) 0.00 K/uL RDW Standard Deviation 50.8 fL RDW Coefficient of Variation 14.2 % Immature Granulocyte % (Auto) 0.4 % Immature Granulocyte # (Auto) 0.03 K/uL Sodium Level 128 mmol/L Potassium Level 4.8 mmol/L Chloride Level 89 mmol/L Carbon Dioxide Level 30 mmol/L Anion Gap 9.0 mmol/L Blood Urea Nitrogen 15 mg/dl Creatinine 0.75 mg/dl Est Creatinine Clear Calc Drug Dose 121.8 ml/min Estimated GFR () 110.0 Estimated GFR (Non- 94.9 BUN/Creatinine Ratio 20.2 Random Glucose 242 mg/dl Calcium Level 8.5 mg/dl Phosphorus Level 4.7 mg/dl Magnesium Level 1.9 mg/dl Troponin I 0.016 ng/ml Triglycerides Level 146 mg/dl Cholesterol Level 134 mg/dl HDL Cholesterol 40 mg/dl LDL Cholesterol, Calculated 65 mg/dl VLDL Cholesterol, Calculated 29 mg/dl Cholesterol/HDL Ratio 3.4 Imaging: Chest x-ray on admission showed congestive heart failure EKG: Electrocardiogram on presentation showed sinus rhythm with no acute changes. That was at 1333 on 11/29/2016. The next electrocardiogram done on that day at 1718 showed atrial fibrillation with a rapid heart rate of 164 bpm. The third electrocardiogram on that day was done at 2237 and showed sinus rhythm at 62 bpm. Telemetry reviewed: Telemetry showed atrial fibrillation with a rapid ventricular response starting at around 5 PM and terminating at around 8 PM on 11/29/2016. Assessment & Plan #1. Atrial fibrillation: Although he had atrial fibrillation in the emergency room for about 3 hours, it is not clear that that was related to his presentation with congestive heart failure. It could have been if he had more of it before admission. Since he was virtually asymptomatic during the arrhythmia I don't know if we can use his symptoms as a guide. For the moment I agree with rate control medications (Cardizem) which I would switch to oral, as well as intravenous anticoagulation. We may need to consider long-term anticoagulation. #2. Congestive heart failure: We need to look for other causes of congestive heart failure other than his atrial arrhythmia. He had an echocardiogram done today and the result is pending. His heart failure appears to have cleared quite quickly. Thank you for allowing me to participate in his care.
--- NOTE | 2016-11-30 11:07 | Critical Care Consultation ---
Critical Care Consultation Date of Consultation: Nov 29, 2016. Attending Physician: Reason for Consultation: REspiratory failure requiring BIPAP and A fib with RVR History of Present Illness The patient is a 66 year old male who presents to the Emergency Room with complaints of shortness of breath. This has been progressive over the past few days. feIt is associated with cough productive of white phlegm. He denies any chest pain, nausea or vomiting, diaphoresis, dizziness or syncope, or fevers/ chills. He denies any leg pain or swelling, recent long travel, recent injury or surgery, or history of blood clots. Aortic valve repair by Dr. Duke. There is a PFT in chart showing COPD dated 11/2015 however, it does not seem he is on inhlaers He underwent a CTA in ED which was negative for PE and showed some mucus plugs and areas of atelectasis At the bedside he is very tangential with history. He went on to describe how one brother of lung cancer, another brother in a hospital with heart attach and the remaining 4 are alive. He says the SOB started few days ago and he is coughing with difficulty to produce sputum. he is wheezing and he continues to smoke. He was under the impression that he does not have COPD THen he went on other tangents. He has no chest pain no fever, chills. No worsened pedal edema recently. He also does not use a CPAP at home Past Medical/Surgical History reported to have AAA BPH Bipolar disorder with a documented manic episode 2 colon polyps (colonoscopy 12/07/2015) a 4mm transverse colon; a 5 mm descending colon s/p polypectomy sigmoid diverticulosis parkinson disease HTn hypothyroidism Moderate Obstructive sleep apnea syndrome with AHI19.7; RDI 20.1 - total time below 88% saturation is 47 min out of a TST 327 COPD documented with PFT on 11/27/2015 shows FEV1/FVC pre BD of 67 (predicted is 76) He has post BD FEV1 of 1.93 liters (57% predicted) hence he has moderately severe COPD by ATS criteria; he also shows air trapping and hyperinflation reported past surgical history hip replacement micrographic surgery of the face vasectomy colonoscopy Family History Hypertension AAA DM Htn his father at age 41 his brother of lung cancer Social History 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 Smoking Status: Current Every Day Smoker Drug Use: none Marital Status: Housing Status: lives alone Occupation Status: retired Allergies Coded Allergies: Lamotrigine (Verified Allergy, Intermediate, RASH ON LOWER LEGS, 11/29/16) [place] (Verified Adverse Reaction, Unknown, GI upset, 11/29/16) Venlafaxine (Verified Adverse Reaction, Unknown, hypertension, 11/29/16) [facility] Ziprasidone (Verified Adverse Reaction, Unknown, SHAKES, 11/29/16) Home Medications Scheduled Atorvastatin (Atorvastatin Calcium), 40 MG PO QPM B-Complex W/ Folic Acid (Super B Complex Maxi), 1 TAB PO QAM Cholecalciferol (Vitamin D3), 1,000 UNITS PO DAILY Cholestyramine (Cholestyramine), 1 DOSE PO QAM Divalproex Sodium (Depakote Er), 500 MG PO QPM Divalproex Sodium (Depakote Er), 1,000 MG PO QAM Finasteride (Finasteride), 5 MG PO QAM Fish Oil ([place]-3), 1,000 MG PO QAM Garlic (Garlic), 500 MG PO DAILY Peyhhdlbnoz-Rtkkblrkmah-Mn Cho (Glucosamine Chondroitin &), 1 TAB PO QAM Hydrochlorothiazide (Hydrochlorothiazide), 1 TAB PO QAM Levocarnitine L-Tartrate (L-Carnitine), 1,000 MG PO TID Levothyroxine Sodium (Levothyroxine Sodium), 50 MCG PO QAM Misc Natural Products ([place]ste[place] Bi-Flex Advanced Do), 1 TAB PO QAM Multivitamin (Multivitamin), 1 TAB PO QAM Tamsulosin Hcl (Flomax), 0.4 MG PO QAM Scheduled PRN Acetaminophen (Tylenol Extra Strength), 500-1,000 MG PO Q6H PRN for Pain Current Inpatient Medications Current Inpatient Medications Medications (Trade) Dose Ordered Sig/Cesar Route Start Time Stop Time Status Last Admin Dose Admin Ioversol (Optiray 320) 111 ml UD PRN IV 11/29/16 13:30 12/03/16 13:29 Diltiazem HCl 125 mg/Dextrose 125 ml @ 0 mls/hr Q0M PRN IV 11/29/16 17:30 12/29/16 17:29 11/29/16 17:37 5 MLS/HR Acetaminophen (Tylenol Tab) 650 mg Q4H PRN PO 11/29/16 17:45 12/29/16 17:44 UNV Nitroglycerin (Nitroglycerin 2% Oint) 1 inch Q6H EXT 11/29/16 17:45 12/29/16 17:44 UNV Levalbuterol (Xopenex 1.25MG/ 0.5ML Neb) 1.25 mg Q4H PRN INH 11/29/16 17:45 12/29/16 17:44 UNV Albuterol/ Ipratropium (Duoneb) 3 ml Q6H INH 11/29/16 17:45 12/29/16 17:44 UNV Morphine Sulfate (MoRPHine SULFATE INJ) 4 mg Q2H PRN IV 11/29/16 17:45 12/13/16 17:44 UNV Review of Systems No other complaints on a 10 point ROS besides what is described in HPI Physical Exam Date Time Temp Pulse Resp B/P (MAP) Pulse Ox O2 Delivery O2 Flow Rate FiO2 11/29/16 17:40 112 20 115/69 98 BiPAP 11/29/16 17:39 91 BiPAP 4.0 100 11/29/16 17:16 159 91 100 11/29/16 17:16 162 29 169/106 95 BiPAP 11/29/16 16:50 111 27 191/115 90 Nebulizer 11/29/16 15:07 95 22 163/103 95 Nasal Cannula 4.0 11/29/16 14:00 94 Nasal Cannula 4.0 11/29/16 14:00 94 Nasal Cannula 4.0 11/29/16 13:29 98 11/29/16 12:58 36.7 104 26 173/88 90 Room Air General Appearance: mild distress Head: normocephalic, atraumatic Eyes: PERRLA, no discharge ENT: normal ear exam, other (no JVD no LN) Neck: normal range of motion, no tenderness, no stridor Respiratory: other (bilateral expiratory rhonchi no crackles) Cardiovasular: other (Irreg Irreg S1 S2 no murmurs appreciated tachycardiac at 130) Abdomen: non tender, normal bowel sounds, other (morbid central obesity) Genitourinary - Male: external genitalia normal Back: normal inspection Upper Extremities: no edema, other (no cyanosis or clubbing) Lower Extremities: other (changes of vascular insufficiency with discoloration but no erythema or heat or tenderness) Pulses: carotid (R) (2+), carotid (L) (2+), radial (R) (2+), radial (L), dorsalis pedis (R) (2+), dorsalis pedis (L) (2+) Neuro: alert, oriented x 3, other (no focal motor deficits) Laboratory Results Last 24 Hours Test 11/29/16 13:48 11/29/16 13:54 11/29/16 15:38 11/29/16 17:01 White Blood Count 11.19 K/uL Red Blood Count 4.38 M/uL Hemoglobin 14.3 g/dL Hematocrit 41.8 % Mean Corpuscular Volume 95.4 fL Mean Corpuscular Hemoglobin 32.6 pg Mean Corpuscular Hemoglobin Concent 34.2 g/dl Platelet Count 231 K/uL Mean Platelet Volume 9.3 fL Neutrophils (%) (Auto) 72.2 % Lymphocytes (%) (Auto) 17.2 % Monocytes (%) (Auto) 9.2 % Eosinophils (%) (Auto) 0.8 % Basophils (%) (Auto) 0.2 % Neutrophils # (Auto) 8.08 K/uL Lymphocytes # (Auto) 1.92 K/uL Monocytes # (Auto) 1.03 K/uL Eosinophils # (Auto) 0.09 K/uL Basophils # (Auto) 0.02 K/uL RDW Standard Deviation 48.1 fL RDW Coefficient of Variation 13.9 % Immature Granulocyte % (Auto) 0.4 % Immature Granulocyte # (Auto) 0.05 K/uL Prothrombin Time 10.7 SECONDS Prothromb Time International Ratio 1.0 Activated Partial Thromboplast Time 26.6 SECONDS Partial Thromboplastin Ratio 1.0 Sodium Level 129 mmol/L Potassium Level 3.9 mmol/L Chloride Level 92 mmol/L Carbon Dioxide Level 32 mmol/L Anion Gap 5.0 mmol/L Blood Urea Nitrogen 6 mg/dl Creatinine 0.57 mg/dl Est Creatinine Clear Calc Drug Dose 160.2 ml/min Estimated GFR () 123.2 Estimated GFR (Non- 106.3 BUN/Creatinine Ratio 9.8 Random Glucose 139 mg/dl Calcium Level 9.3 mg/dl Total Bilirubin 0.6 mg/dl Aspartate Amino Transf (AST/SGOT) 16 U/L Alanine Aminotransferase (ALT/SGPT) 33 U/L Alkaline Phosphatase 49 U/L Troponin I 0.031 ng/ml Pro-B-Type Natriuretic Peptide 394 pg/ml Total Protein 7.4 gm/dl Albumin 3.6 gm/dl Globulin 3.8 gm/dl Albumin/Globulin Ratio 0.9 Arterial Blood pH 7.40 7.31 Arterial Blood Partial Pressure CO2 50 mmHg 45 mmHg Arterial Blood Partial Pressure O2 74 mm/Hg 45 mm/Hg Arterial Blood HCO3 30 mmol/L 22 mmol/L Arterial Blood Oxygen Saturation 94.2 % 74.9 % Arterial Blood Base Excess 4.5 mEq/L -4.1 mEq/L Arterial Blood Gas Delivery 4L NEBULIZER Eh Test POS POS Urine Color DK YELLOW Urine Appearance CLEAR Urine pH 6.0 Urine Specific [place] 1.022 Urine Protein 1+ Urine Glucose (UA) TRACE Urine Ketones 1+ Urine Occult Blood TRACE Urine Nitrite NEG Urine Bilirubin NEG Urine Urobilinogen NEG Urine Leukocyte Esterase NEG Urine WBC (Auto) 1-5 /hpf Urine RBC (Auto) 5-10 /hpf Urine Hyaline Casts (Auto) 1-5 /lpf Urine Epithelial Cells (Auto) 10-20 /lpf Urine Bacteria (Auto) NEG Diagnostic Results CTA chest shows no PE Assessment & Plan Acute on chronic respiratory failure. This is likely due to COPD exacerbation. His BNP is within normal for his age. CT scan suggests multiple mucous plugs with atelectasis. This is complicated with presumed new onset A fib with RVR He is known to have multiple medical comorbidities as stated above neurologic will continue his Depakote, respiratory: IV solumedrol 60 Q6 levalbuterol/ipratropium now and Q6 hours symbicort 180/4.5 BID He will need all classes of COPD meds on discharge LAMA, LABA, ICS and EVELYN and a FU with pulmonary Needs auto CPAP or VPAP at night; nicotine patch 21 mcg daily cardiovascular continue lipitor hold diuresis cardizem to control HR <110 troponin trending and daily ECG Renal FU and replete lytes maintain UO 0.5-1 ml/kg Bw-hr send FeNa GI pantoprazole GI prophylaxis diet heart healthy low sodium ID start zithromycin for beneficial effects on COPD exacerbation DVT prophylaxis on heparin drip He is critically ill and he is at risk of limb/life loss. I spent a total of 50 minutes managing him today.
[2016-11-30] MEDS ORDERED: TIOTROPIUM BROMIDE 5 PUFF/90 MCG INH INH ONE (11:29)
--- NOTE | 2016-11-30 12:08 | Critical Care Progress Note ---
Critical Care Progress Note Date of Service Nov 30, 2016. ICU Day ICU Day Number: [address] Haris Kimble The patient is a 66 yo male who is known to have bipolar disorder and is a current smoker, COPD, REHANA, HTn. He was admitted with acute on chronic respiratory failure likely due to AECOPD necessitating NIPPV with BIPAP. Acute exacerbation of COPD. THis am he was feeling much better he is off Bipap on 3 liters O2/min We had a long discussion about how he needs to take spiriva, symbicort and albuterol. Cardiology Dr Nguyen evaluated him this am He has no chest pain or other complaints today. I asked again about CPAP and he says he has met the sleep doctor and decided it was not for him but I explained a CPAP is very similar to the BIPAP he used yesterday. He then said he would use it. His atrial fibrillation resolved then he relapsed after minimal irritation with his Brown. Then he went back to sinus rhythm. We are transitioning him to oral cardizem Objective General Appearance: mild distress Head: normocephalic, atraumatic Eyes: PERRLA, no discharge ENT: normal ear exam, other (no JVD no LN) Neck: normal range of motion, no tenderness, no stridor Respiratory: He has prolonged expiratory phase but the rhonchi have resolved there is mild diffuse abrupt "musical type" wheezes signifying improvement in areation Cardiovasular: He has reg S1 S2 no murmurs Abdomen: non tender, normal bowel sounds, other (morbid central obesity) Genitourinary - Male: external genitalia normal Back: normal inspection Upper Extremities: no edema, other (no cyanosis or clubbing) Lower Extremities: other (changes of vascular insufficiency with discoloration but no erythema or heat or tenderness) Pulses: carotid (R) (2+), carotid (L) (2+), radial (R) (2+), radial (L), dorsalis pedis (R) (2+), dorsalis pedis (L) (2+) Neuro: alert, oriented x 3, other (no focal motor deficits) Current SOFA Score SOFA Score Response (Comments) Value PaO2/FiO2 (mmHg) < 300 2 SaO2 / FIO2 221 - 301 1 Platelets (x10) > 150 0 Bilirubin (mg/dL) < 1.2 0 Veda Coma Score 15 0 Level of Hypotension No Hypotension 0 Creatinine (mg/dL) < 1.2 0 Total 3 Previous SOFA Scores 3 Assessment & Plan Acute on chronic respiratory failure. This is likely due to COPD exacerbation. His BNP is within normal for his age. CT scan suggests multiple mucous plugs with atelectasis. This is complicated with presumed new onset A fib with RVR He is known to have multiple medical comorbidities as stated above neurologic will continue his Depakote, respiratory: change solumedrol to prednisone 40 mg PO daily x 5 days including today Hold duonebs and start spiriva once daily. One dose today. Albuterol Nebulizer Q6 and then on DC he could have an inhaler PRN symbicort 180/4.5 BID He will need all classes of COPD meds on discharge LAMA, LABA, ICS and EVELYN and a FU with pulmonary Needs auto CPAP or VPAP at night; His Echo is pending. 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 The extensive desaturation at night may be nocturnal hypoventilation not just intermittent hypoxia of REHANA nicotine patch 21 mcg daily cardiovascular continue lipitor hold diuresis cardizem to control HR <110 . 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 I spent a total of 45 minutes managing him today. Consults & Procedures Consultants: cardiology Procedures: none Data Medications: Current Inpatient Medications Medications (Trade) Dose Ordered Sig/Cesar Route Start Time Stop Time Status Last Admin Dose Admin Ioversol (Optiray 320) 111 ml UD PRN IV 11/29/16 13:30 12/03/16 13:29 Diltiazem HCl 125 mg/Dextrose 125 ml @ 0 mls/hr Q0M PRN IV 11/29/16 17:30 12/29/16 17:29 11/29/16 17:37 5 MLS/HR Acetaminophen (Tylenol Tab) 650 mg Q4H PRN PO 11/29/16 17:45 12/29/16 17:44 Nitroglycerin (Nitroglycerin 2% Oint) 1 inch Q6H EXT 11/29/16 22:00 12/29/16 21:59 11/30/16 10:24 1 INCH Levalbuterol (Xopenex 1.25MG/ 0.5ML Neb) 1.25 mg Q4H PRN INH 11/29/16 17:45 12/29/16 17:44 Morphine Sulfate (MoRPHine SULFATE INJ) 4 mg Q2H PRN IV 11/29/16 17:45 12/13/16 17:44 Atorvastatin Calcium (Lipitor Tab) 40 mg QPM PO 11/29/16 21:00 12/29/16 20:59 11/29/16 21:15 40 MG Divalproex Sodium (Depakote Extended Rel Tab) 1,000 mg QAM PO 11/30/16 09:00 12/30/16 08:59 11/30/16 08:48 1,000 MG Divalproex Sodium (Depakote Extended Rel Tab) 500 mg QPM PO 11/29/16 21:00 12/29/16 20:59 11/29/16 21:15 500 MG Finasteride (Proscar Tab) 5 mg QAM PO 11/30/16 09:00 12/30/16 08:59 11/30/16 08:48 5 MG Fish Oil ([place]-3 (Purified Fish Oil) Cap) 1 gm QAM PO 11/30/16 09:00 12/30/16 08:59 11/30/16 08:48 1 GM Levothyroxine Sodium (Synthroid Tab) 50 mcg DAILYBB PO 11/30/16 06:00 12/30/16 05:59 11/30/16 05:02 50 MCG Tamsulosin HCl (Flomax Cap) 0.4 mg QAM PO 11/30/16 09:00 12/30/16 08:59 11/30/16 08:48 0.4 MG Cholestyramine Resin (Questran Powder Light) 1 gm DAILY@1000 PO 11/30/16 10:00 12/30/16 09:59 11/30/16 10:24 1 GM Budesonide/ Formoterol Fumarate (Symbicort 160/ 4.5 Inh) 2 puffs BID INH 11/30/16 09:00 12/30/16 08:59 11/30/16 08:47 2 PUFFS Azithromycin 250 mg/Dextrose 252.5 ml @ 125 mls/hr DAILY@2000 IV 11/30/16 20:00 12/05/16 22:02 Heparin Sodium/ Dextrose 500 ml @ 32 mls/hr [id number] PRN IV 11/29/16 19:30 12/29/16 19:29 11/29/16 20:25 32 MLS/HR Miscellaneous Information (Consult Glycemic Management Pharmacy) 1 ea DAILY PRN N/A 11/30/16 00:45 12/30/16 00:44 Glucose (Glucose 40% Gel) 15-30 GRAMS 15 GRAMS... UD PRN PO 11/30/16 01:00 12/30/16 00:59 Glucose (Glucose Chew Tab) 4-8 Tablets 4 Tabl... UD PRN PO 11/30/16 01:00 12/30/16 00:59 Dextrose (Dextrose 50% 50ML Syringe) 25-50ML OF 50% DW IV FOR... UD PRN IV 11/30/16 01:00 12/30/16 00:59 Glucagon (Glucagon Inj) 1 mg UD PRN SQ 11/30/16 01:00 12/30/16 00:59 Insulin Aspart (novoLOG ASPART) SLIDING SCALE ACHS SC 11/30/16 06:45 12/30/16 06:44 11/30/16 08:52 15 UNITS Insulin Glargine (Lantus Solostar Pen) 20 units BID SC 11/30/16 09:00 12/30/16 08:59 Future hold Diltiazem HCl (Cardizem Tab) 60 mg TID PO 11/30/16 14:00 12/30/16 13:59 Guaifenesin (Robitussin Sugar Free Syrup) 200 mg Q6H PRN PO 11/30/16 11:15 12/30/16 11:14 UNV Tiotropium [place] (Spiriva Handihaler Inhaler) 1 puff QAM INH 12/01/16 09:00 12/31/16 08:59 Albuterol Sulfate (Ventolin 0.083% 2.5MG/3ML Neb) 2.5 mg QIDR INH 11/30/16 12:00 12/30/16 11:59 UNV Prednisone (PredniSONE TAB) 40 mg DAILY PO 12/01/16 09:00 12/04/16 10:00 Vital Signs: Date Time Temp Pulse Resp B/P (MAP) Pulse Ox O2 Delivery O2 Flow Rate FiO2 11/30/16 10:00 36.8 78 17 118/59 (78) 92 Nasal Cannula 6.0 11/30/16 08:00 92 Nasal Cannula 6.0 11/30/16 08:00 36.8 85 22 132/83 (99) 92 Nasal Cannula 6.0 11/30/16 07:32 93 97 70 11/30/16 07:31 93 24 97 BiPAP/CPAP 70 11/30/16 06:02 82 18 141/85 (103) 97 BiPAP 11/30/16 05:45 84 19 124/81 (95) 94 BiPAP 11/30/16 05:30 70 14 120/79 (93) 93 BiPAP 11/30/16 05:15 69 15 117/73 (88) 97 BiPAP 11/30/16 05:00 73 14 128/81 (97) 95 BiPAP 11/30/16 04:45 70 16 118/73 (88) 97 BiPAP 11/30/16 04:30 83 19 134/85 (101) 97 BiPAP 11/30/16 04:15 81 17 131/84 (100) 97 BiPAP 11/30/16 04:00 36.9 67 15 105/68 (80) 96 BiPAP 11/30/16 04:00 BiPAP 80 11/30/16 03:30 71 14 111/66 (81) 98 BiPAP 11/30/16 03:00 74 16 117/69 (85) 96 BiPAP 11/30/16 02:30 66 15 104/64 (77) 97 BiPAP 11/30/16 02:00 69 17 105/66 (79) 95 BiPAP 11/30/16 01:50 71 16 96 BiPAP/CPAP 70 11/30/16 01:50 71 96 70 910/17 01:30 76 18 115/71 (86) 95 BiPAP /10/17 01:00 66 17 108/63 (78) 95 BiPAP 9/10/17 00:30 68 20 112/73 (86) 97 BiPAP 9/10/17 00:01 BiPAP 80 1017 00:00 37.0 64 20 100/61 (74) 95 BiPAP 9/9/17 23:30 62 17 103/64 (77) 96 BiPAP /9/17 23:03 63 96 70 /9/17 23:00 63 18 97/63 (74) 96 BiPAP /9/17 22:30 60 18 102/63 (76) 96 BiPAP /9/17 22:00 76 18 111/67 (82) 95 BiPAP /9/17 21:30 87 19 100/67 (78) 98 BiPAP /9/17 21:15 96 18 108/65 (79) 98 BiPAP //17 21:00 98 18 106/77 (87) 98 BiPAP /9/17 20:45 98 18 130/60 (83) 96 BiPAP /9/17 20:30 91 16 116/73 (87) 94 BiPAP /9/17 20:15 95 18 107/65 (79) 96 BiPAP /9/17 20:07 98 16 96 BiPAP/CPAP 70 11/29/16 20:05 108 96 70 17 20:00 92 20 126/76 (93) 96 BiPAP 9/17 20:00 BiPAP 80 17 19:45 96 17 118/82 (94) 92 BiPAP /9/17 19:30 78 18 133/86 (102) 86 BiPAP /9/17 19:19 96 18 136/87 (103) 98 BiPAP /9/17 19:11 37.0 106 18 146/79 (101) 100 BiPAP 9/9/17 19:00 118 18 107/60 100 9/9/17 18:30 118 18 107/60 100 BiPAP /9/17 17:40 112 20 115/69 98 BiPAP 9/9/17 17:39 91 BiPAP 4.0 100 9/9/17 17:16 159 91 100 11/29/16 17:16 162 29 169/106 95 BiPAP 11/29/16 16:50 111 27 191/115 90 Nebulizer 11/29/16 15:07 95 22 163/103 95 Nasal Cannula 4.0 11/29/16 14:00 94 Nasal Cannula 4.0 11/29/16 14:00 94 Nasal Cannula 4.0 11/29/16 13:29 98 11/29/16 12:58 36.7 104 26 173/88 90 Room Air Laboratory Results: Last 24 Hours Test 11/29/16 13:48 11/29/16 13:54 11/29/16 15:38 11/29/16 17:01 White Blood Count 11.19 K/uL Red Blood Count 4.38 M/uL Hemoglobin 14.3 g/dL Hematocrit 41.8 % Mean Corpuscular Volume 95.4 fL Mean Corpuscular Hemoglobin 32.6 pg Mean Corpuscular Hemoglobin Concent 34.2 g/dl Platelet Count 231 K/uL Mean Platelet Volume 9.3 fL Neutrophils (%) (Auto) 72.2 % Lymphocytes (%) (Auto) 17.2 % Monocytes (%) (Auto) 9.2 % Eosinophils (%) (Auto) 0.8 % Basophils (%) (Auto) 0.2 % Neutrophils # (Auto) 8.08 K/uL Lymphocytes # (Auto) 1.92 K/uL Monocytes # (Auto) 1.03 K/uL Eosinophils # (Auto) 0.09 K/uL Basophils # (Auto) 0.02 K/uL RDW Standard Deviation 48.1 fL RDW Coefficient of Variation 13.9 % Immature Granulocyte % (Auto) 0.4 % Immature Granulocyte # (Auto) 0.05 K/uL Prothrombin Time 10.7 SECONDS Prothromb Time International Ratio 1.0 Activated Partial Thromboplast Time 26.6 SECONDS Partial Thromboplastin Ratio 1.0 Sodium Level 129 mmol/L Potassium Level 3.9 mmol/L Chloride Level 92 mmol/L Carbon Dioxide Level 32 mmol/L Anion Gap 5.0 mmol/L Blood Urea Nitrogen 6 mg/dl Creatinine 0.57 mg/dl Est Creatinine Clear Calc Drug Dose 160.2 ml/min Estimated GFR () 123.2 Estimated GFR (Non- 106.3 BUN/Creatinine Ratio 9.8 Random Glucose 139 mg/dl Calcium Level 9.3 mg/dl Total Bilirubin 0.6 mg/dl Aspartate Amino Transf (AST/SGOT) 16 U/L Alanine Aminotransferase (ALT/SGPT) 33 U/L Alkaline Phosphatase 49 U/L Troponin I 0.031 ng/ml Pro-B-Type Natriuretic Peptide 394 pg/ml Total Protein 7.4 gm/dl Albumin 3.6 gm/dl Globulin 3.8 gm/dl Albumin/Globulin Ratio 0.9 Thyroid Stimulating Hormone (TSH) 2.530 uIu/ml Arterial Blood pH 7.40 7.31 Arterial Blood Partial Pressure CO2 50 mmHg 45 mmHg Arterial Blood Partial Pressure O2 74 mm/Hg 45 mm/Hg Arterial Blood HCO3 30 mmol/L 22 mmol/L Arterial Blood Oxygen Saturation 94.2 % 74.9 % Arterial Blood Base Excess 4.5 mEq/L -4.1 mEq/L Arterial Blood Gas Delivery 4L NEBULIZER Eh Test POS POS Urine Color DK YELLOW Urine Appearance CLEAR Urine pH 6.0 Urine Specific [place] 1.022 Urine Protein 1+ Urine Glucose (UA) TRACE Urine Ketones 1+ Urine Occult Blood TRACE Urine Nitrite NEG Urine Bilirubin NEG Urine Urobilinogen NEG Urine Leukocyte Esterase NEG Urine WBC (Auto) 1-5 /hpf Urine RBC (Auto) 5-10 /hpf Urine Hyaline Casts (Auto) 1-5 /lpf Urine Epithelial Cells (Auto) 10-20 /lpf Urine Bacteria (Auto) NEG Test 11/29/16 23:24 11/30/16 00:28 11/30/16 02:31 11/30/16 04:59 Troponin I 0.031 ng/ml Bedside Glucose 241 mg/dl 232 mg/dl Activated Partial Thromboplast Time 50.3 SECONDS Partial Thromboplastin Ratio 1.9 Test 11/30/16 05:43 11/30/16 10:59 11/30/16 11:51 White Blood Count 7.63 K/uL Red Blood Count 4.14 M/uL Hemoglobin 13.2 g/dL Hematocrit 40.4 % Mean Corpuscular Volume 97.6 fL Mean Corpuscular Hemoglobin 31.9 pg Mean Corpuscular Hemoglobin Concent 32.7 g/dl Platelet Count 228 K/uL Mean Platelet Volume 9.6 fL Neutrophils (%) (Auto) 79.9 % Lymphocytes (%) (Auto) 15.9 % Monocytes (%) (Auto) 3.8 % Eosinophils (%) (Auto) 0.0 % Basophils (%) (Auto) 0.0 % Neutrophils # (Auto) 6.10 K/uL Lymphocytes # (Auto) 1.21 K/uL Monocytes # (Auto) 0.29 K/uL Eosinophils # (Auto) 0.00 K/uL Basophils # (Auto) 0.00 K/uL RDW Standard Deviation 50.8 fL RDW Coefficient of Variation 14.2 % Immature Granulocyte % (Auto) 0.4 % Immature Granulocyte # (Auto) 0.03 K/uL Sodium Level 128 mmol/L Potassium Level 4.8 mmol/L Chloride Level 89 mmol/L Carbon Dioxide Level 30 mmol/L Anion Gap 9.0 mmol/L Blood Urea Nitrogen 15 mg/dl Creatinine 0.75 mg/dl Est Creatinine Clear Calc Drug Dose 121.8 ml/min Estimated GFR () 110.0 Estimated GFR (Non- 94.9 BUN/Creatinine Ratio 20.2 Random Glucose 242 mg/dl Calcium Level 8.5 mg/dl Phosphorus Level 4.7 mg/dl Magnesium Level 1.9 mg/dl Troponin I 0.016 ng/ml Triglycerides Level 146 mg/dl Cholesterol Level 134 mg/dl HDL Cholesterol 40 mg/dl LDL Cholesterol, Calculated 65 mg/dl VLDL Cholesterol, Calculated 29 mg/dl Cholesterol/HDL Ratio 3.4 Bedside Glucose 249 mg/dl
[2016-11-30] MEDS: GUAIFENESIN SUGAR FREE 200 MG/10 ML UDC PO PRN ×2 (12:56→19:26)
[2016-11-30] MEDS: HEPARIN 25,000 UNIT/500ML D5W 500 ML IV PRN (12:57)
[2016-11-30] MEDS: DILTIAZEM HCL INJ 125 MG in DEXTROSE 5% 100ML IV PRN (14:32)
[2016-11-30] MEDS: DILTIAZEM HCL 60 MG TAB PO SCH ×2 (14:33→21:19)
[2016-11-30] MEDS: ALBUTEROL 0.083% NEBU SOLN 3 ML VIAL INH SCH ×2 (15:09→20:27)
--- NOTE | 2016-11-30 16:42 | Progress Note ---
Subjective Date of Service: Nov 30, 2016. Subjective Pt evaluation today including: conversation w/ patient, physical exam, lab review, review of studies, conversation w/ sr technical sales consultant, review of inpatient medication list Pain: no pain PO Intake: adequate Voiding: flor catheter in place patient feeling better, breathing more comfortably cough productive of yellow/brown sputum Problem List Medical Problems: (1) Congestive heart failure Status: Acute (2) Leg pain, left Status: Acute (3) Rapid atrial fibrillation Status: Acute Review of Systems Constitutional: + weakness, + fatigue Respiratory: + cough, + wheezing, + shortness of breath All Other Systems: Reviewed and Negative Medications Current Inpatient Medications Medications (Trade) Dose Ordered Sig/Cesar Route Start Time Stop Time Status Last Admin Dose Admin Ioversol (Optiray 320) 111 ml UD PRN IV 11/29/16 13:30 12/03/16 13:29 Diltiazem HCl 125 mg/Dextrose 125 ml @ 0 mls/hr Q0M PRN IV 11/29/16 17:30 12/29/16 17:29 11/30/16 14:32 10 MLS/HR Acetaminophen (Tylenol Tab) 650 mg Q4H PRN PO 11/29/16 17:45 12/29/16 17:44 Nitroglycerin (Nitroglycerin 2% Oint) 1 inch Q6H EXT 11/29/16 22:00 12/29/16 21:59 11/30/16 16:25 1 INCH Levalbuterol (Xopenex 1.25MG/ 0.5ML Neb) 1.25 mg Q4H PRN INH 11/29/16 17:45 12/29/16 17:44 Morphine Sulfate (MoRPHine SULFATE INJ) 4 mg Q2H PRN IV 11/29/16 17:45 12/13/16 17:44 Atorvastatin Calcium (Lipitor Tab) 40 mg QPM PO 11/29/16 21:00 12/29/16 20:59 11/29/16 21:15 40 MG Divalproex Sodium (Depakote Extended Rel Tab) 1,000 mg QAM PO 11/30/16 09:00 12/30/16 08:59 11/30/16 08:48 1,000 MG Divalproex Sodium (Depakote Extended Rel Tab) 500 mg QPM PO 11/29/16 21:00 12/29/16 20:59 11/29/16 21:15 500 MG Finasteride (Proscar Tab) 5 mg QAM PO 11/30/16 09:00 12/30/16 08:59 11/30/16 08:48 5 MG Fish Oil ([place]-3 (Purified Fish Oil) Cap) 1 gm QAM PO 11/30/16 09:00 12/30/16 08:59 11/30/16 08:48 1 GM Levothyroxine Sodium (Synthroid Tab) 50 mcg DAILYBB PO 11/30/16 06:00 12/30/16 05:59 11/30/16 05:02 50 MCG Tamsulosin HCl (Flomax Cap) 0.4 mg QAM PO 11/30/16 09:00 12/30/16 08:59 11/30/16 08:48 0.4 MG Cholestyramine Resin (Questran Powder Light) 1 gm DAILY@1000 PO 11/30/16 10:00 12/30/16 09:59 11/30/16 10:24 1 GM Budesonide/ Formoterol Fumarate (Symbicort 160/ 4.5 Inh) 2 puffs BID INH 11/30/16 09:00 12/30/16 08:59 11/30/16 08:47 2 PUFFS Azithromycin 250 mg/Dextrose 252.5 ml @ 125 mls/hr DAILY@2000 IV 11/30/16 20:00 12/05/16 22:02 Heparin Sodium/ Dextrose 500 ml @ 32 mls/hr [id number] PRN IV 11/29/16 19:30 12/29/16 19:29 11/30/16 12:57 32 MLS/HR Miscellaneous Information (Consult Glycemic Management Pharmacy) 1 ea DAILY PRN N/A 11/30/16 00:45 12/30/16 00:44 Glucose (Glucose 40% Gel) 15-30 GRAMS 15 GRAMS... UD PRN PO 11/30/16 01:00 12/30/16 00:59 Glucose (Glucose Chew Tab) 4-8 Tablets 4 Tabl... UD PRN PO 11/30/16 01:00 12/30/16 00:59 Dextrose (Dextrose 50% 50ML Syringe) 25-50ML OF 50% DW IV FOR... UD PRN IV 11/30/16 01:00 12/30/16 00:59 Glucagon (Glucagon Inj) 1 mg UD PRN SQ 11/30/16 01:00 12/30/16 00:59 Insulin Aspart (novoLOG ASPART) SLIDING SCALE ACHS SC 11/30/16 06:45 12/30/16 06:44 11/30/16 16:31 39 UNITS Diltiazem HCl (Cardizem Tab) 60 mg TID PO 11/30/16 14:00 12/30/16 13:59 11/30/16 14:33 60 MG Guaifenesin (Robitussin Sugar Free Syrup) 200 mg Q6H PRN PO 11/30/16 11:15 12/30/16 11:14 11/30/16 12:56 200 MG Tiotropium [place] (Spiriva Handihaler Inhaler) 1 puff QAM INH 12/01/16 09:00 12/31/16 08:59 Albuterol Sulfate (Ventolin 0.083% 2.5MG/3ML Neb) 2.5 mg QIDR INH 11/30/16 12:00 12/30/16 11:59 11/30/16 15:09 2.5 MG Prednisone (PredniSONE TAB) 40 mg DAILY PO 12/01/16 09:00 12/04/16 10:00 Insulin Glargine (Lantus Solostar Pen) SEE PROTOCOL TEXT BID SC 11/30/16 21:00 12/30/16 20:59 Insulin Aspart (novoLOG ASPART) SLIDING SCALE 0200 ONCE SC 12/01/16 02:00 12/01/16 02:01 Objective Vital Signs Date Time Temp Pulse Resp B/P (MAP) Pulse Ox O2 Delivery O2 Flow Rate FiO2 11/30/16 15:12 89 18 93 Nasal Cannula 6.0 11/30/16 14:00 36.8 74 15 109/63 (78) 91 Nasal Cannula 6.0 11/30/16 12:00 90 Nasal Cannula 6.0 11/30/16 12:00 36.8 90 22 120/65 (83) 92 Nasal Cannula 6.0 11/30/16 11:35 94 20 91 Nasal Cannula 6.0 11/30/16 10:00 36.8 78 17 118/59 (78) 92 Nasal Cannula 6.0 11/30/16 08:00 92 Nasal Cannula 6.0 11/30/16 08:00 36.8 85 22 132/83 (99) 92 Nasal Cannula 6.0 11/30/16 07:32 93 97 70 11/30/16 07:31 93 24 97 BiPAP/CPAP 70 11/30/16 06:02 82 18 141/85 (103) 97 BiPAP 11/30/16 05:45 84 19 124/81 (95) 94 BiPAP 11/30/16 05:30 70 14 120/79 (93) 93 BiPAP 11/30/16 05:15 69 15 117/73 (88) 97 BiPAP 11/30/16 05:00 73 14 128/81 (97) 95 BiPAP 11/30/16 04:45 70 16 118/73 (88) 97 BiPAP 11/30/16 04:30 83 19 134/85 (101) 97 BiPAP 11/30/16 04:15 81 17 131/84 (100) 97 BiPAP 11/30/16 04:00 36.9 67 15 105/68 (80) 96 BiPAP 11/30/16 04:00 BiPAP 80 11/30/16 03:30 71 14 111/66 (81) 98 BiPAP 11/30/16 03:00 74 16 117/69 (85) 96 BiPAP 11/30/16 02:30 66 15 104/64 (77) 97 BiPAP 11/30/16 02:00 69 17 105/66 (79) 95 BiPAP 11/30/16 01:50 71 16 96 BiPAP/CPAP 70 11/30/16 01:50 71 96 70 11/30/16 01:30 76 18 115/71 (86) 95 BiPAP 17 01:00 66 17 108/63 (78) 95 BiPAP 10 00:30 68 20 112/73 (86) 97 BiPAP 10 00:01 BiPAP 80 11/30/16 00:00 37.0 64 20 100/61 (74) 95 BiPAP 9//17 23:30 62 17 103/64 (77) 96 BiPAP 9/9/17 23:03 63 96 70 9/9/17 23:00 63 18 97/63 (74) 96 BiPAP 9/9/17 22:30 60 18 102/63 (76) 96 BiPAP 9/9/17 22:00 76 18 111/67 (82) 95 BiPAP 11/29/16 21:30 87 19 100/67 (78) 98 BiPAP 11/29/16 21:15 96 18 108/65 (79) 98 BiPAP 11/29/16 21:00 98 18 106/77 (87) 98 BiPAP 11/29/16 20:45 98 18 130/60 (83) 96 BiPAP 11/29/16 20:30 91 16 116/73 (87) 94 BiPAP 11/29/16 20:15 95 18 107/65 (79) 96 BiPAP 11/29/16 20:07 98 16 96 BiPAP/CPAP 70 11/29/16 20:05 108 96 70 11/29/16 20:00 92 20 126/76 (93) 96 BiPAP 11/29/16 20:00 BiPAP 80 11/29/16 19:45 96 17 118/82 (94) 92 BiPAP 11/29/16 19:30 78 18 133/86 (102) 86 BiPAP 11/29/16 19:19 96 18 136/87 (103) 98 BiPAP 11/29/16 19:11 37.0 106 18 146/79 (101) 100 BiPAP 11/29/16 19:00 118 18 107/60 100 11/29/16 18:30 118 18 107/60 100 BiPAP 11/29/16 17:40 112 20 115/69 98 BiPAP 11/29/16 17:39 91 BiPAP 4.0 100 11/29/16 17:16 159 91 100 11/29/16 17:16 162 29 169/106 95 BiPAP 11/29/16 16:50 111 27 191/115 90 Nebulizer Physical Exam General Appearance: no apparent distress, + obese Eyes: normal inspection, EOMI, sclerae normal Neck: supple, no adenopathy, no JVD, trachea midline Respiratory/Chest: chest non-tender, no respiratory distress, no accessory muscle use, + decreased breath sounds, + wheezing Cardiovascular: regular rate, rhythm, no edema, no gallop, no JVD, no murmur Abdomen: normal bowel sounds, non tender, soft, no organomegaly Extremities: normal range of motion, non-tender, normal inspection, no pedal edema, no calf tenderness Neurologic/Psychiatric: latexer II-XII nml as tested, no motor/sensory deficits, alert, normal mood/affect, oriented x 3 Skin: normal color, warm/dry, no rash Laboratory Results Last 24 Hours Test 11/29/16 17:01 11/29/16 23:24 11/30/16 00:28 11/30/16 02:31 Arterial Blood pH 7.31 Arterial Blood Partial Pressure CO2 45 mmHg Arterial Blood Partial Pressure O2 45 mm/Hg Arterial Blood HCO3 22 mmol/L Arterial Blood Oxygen Saturation 74.9 % Arterial Blood Base Excess -4.1 mEq/L Arterial Blood Gas Delivery NEBULIZER Eh Test POS Troponin I 0.031 ng/ml Bedside Glucose 241 mg/dl Activated Partial Thromboplast Time 50.3 SECONDS Partial Thromboplastin Ratio 1.9 Test 11/30/16 04:59 11/30/16 05:43 11/30/16 10:59 11/30/16 11:51 Bedside Glucose 232 mg/dl 249 mg/dl White Blood Count 7.63 K/uL Red Blood Count 4.14 M/uL Hemoglobin 13.2 g/dL Hematocrit 40.4 % Mean Corpuscular Volume 97.6 fL Mean Corpuscular Hemoglobin 31.9 pg Mean Corpuscular Hemoglobin Concent 32.7 g/dl Platelet Count 228 K/uL Mean Platelet Volume 9.6 fL Neutrophils (%) (Auto) 79.9 % Lymphocytes (%) (Auto) 15.9 % Monocytes (%) (Auto) 3.8 % Eosinophils (%) (Auto) 0.0 % Basophils (%) (Auto) 0.0 % Neutrophils # (Auto) 6.10 K/uL Lymphocytes # (Auto) 1.21 K/uL Monocytes # (Auto) 0.29 K/uL Eosinophils # (Auto) 0.00 K/uL Basophils # (Auto) 0.00 K/uL RDW Standard Deviation 50.8 fL RDW Coefficient of Variation 14.2 % Immature Granulocyte % (Auto) 0.4 % Immature Granulocyte # (Auto) 0.03 K/uL Sodium Level 128 mmol/L Potassium Level 4.8 mmol/L Chloride Level 89 mmol/L Carbon Dioxide Level 30 mmol/L Anion Gap 9.0 mmol/L Blood Urea Nitrogen 15 mg/dl Creatinine 0.75 mg/dl Est Creatinine Clear Calc Drug Dose 121.8 ml/min Estimated GFR () 110.0 Estimated GFR (Non- 94.9 BUN/Creatinine Ratio 20.2 Random Glucose 242 mg/dl Calcium Level 8.5 mg/dl Phosphorus Level 4.7 mg/dl Magnesium Level 1.9 mg/dl Troponin I 0.016 ng/ml 0.017 ng/ml Triglycerides Level 146 mg/dl Cholesterol Level 134 mg/dl HDL Cholesterol 40 mg/dl LDL Cholesterol, Calculated 65 mg/dl VLDL Cholesterol, Calculated 29 mg/dl Cholesterol/HDL Ratio 3.4 Test 11/30/16 12:45 11/30/16 16:14 Urine Random Creatinine 83.0 mg/dl Urine Random Sodium < 5 mEq/L Bedside Glucose 287 mg/dl Assessment and Plan 66 y/o M Hx Bipolar disease, Hypothyroidism, morbid obesity, HTN, HPL, BPH, heavy smoker. Pt presents with a chief complaint of progressive SOB and productive cough. He was notably hypoxic on arrival to the ER, exhibiting labored breathing and wheezing on exam. He had not complained of CP, N/V, fevers. He was placed on BIPAP and sent for a CTA which did not show a PE and was consistent with pulmonary edema. He was treated for CHF and also for suspected COPD in the ER. While in the ER he developed rapid AF at a rate of up to 180. - Acute hypoxic respiratory failure due to COPD exacerbation titrated off of BIPAP, should still use at night stable on 6L NC, transfer to telemetry today goal saturation is 90-92% - COPD exacerbation: signs of purulence with thick, yellow/brown sputum Prednisone 40mg daily, nebulizers, Rocephin and Zithromax pulmonary recommends Spiriva, Symbicort - REHANA: recommending BIPAP while sleeping - Paroxysmal atrial fibrillation: Diltiazem 60mg TID cardiology consulted, defer decision on AC to cardiology, currently on heparin gtt - Bipolar: Depakote - Hyponatremia: continues to be low but stable, repeat tomorrow - Hypothyroid: synthroid DVT prophylaxis: heparin gtt
[2016-11-30] MEDS: CEFTRIAXONE SOD INJ 1,000 MG in DEXTROSE 5% 50ML 50 ML IV SCH (18:15)
[2016-11-30] MEDS: ATORVASTATIN 40 MG TAB PO SCH (19:36)
[2016-11-30] MEDS ORDERED: AZITHROMYCIN IV 250 MG in DEXTROSE 5% 250ML 250 ML IV SCH (20:00)
[2016-12-01] VITALS (14 sets, daily range): BP systolic 100–124; BP diastolic 60–81; PULSE 54–94; TEMP 36.4–36.6; O2SAT 90–99; Ht 177.8 cm; Wt 110.4 kg
[2016-12-01 01:37] LABS: PARTIAL THROMBOPLASTIN RATIO 1.5
[2016-12-01] MEDS ORDERED: INSULIN ASPART 100 UNITS/ML 3 ML PEN SC ONE (02:00)
[2016-12-01] MEDS ORDERED: HEPARIN IV BOLUS 7,000 UNIT in SYRINGE 0 ML IV STA (02:02)
[2016-12-01] MEDS: HEPARIN 25,000 UNIT/500ML D5W 500 ML IV PRN ×2 (02:14→16:02)
[2016-12-01] MEDS: NITROGLYCERIN OINT 2% 1GM PACKET EXT SCH (04:09)
[2016-12-01] MEDS: LEVOTHYROXINE 50 MCG TAB PO SCH (05:22)
[2016-12-01 06:57] LABS: ESTIMATED AVERAGE GLUCOSE 171 mg/dl; HA1C FLAG Normal (Normal)
[2016-12-01 07:13] LABS: BASO % 0.1 %; BASO ABS # 0.01 K/uL (0-0.2); COMPLETE YES; EOS % 0.1 %; HEMATOCRIT 40.8 % (42-52); IG% 0.4 %; LYMPH % 15.7 %; LYMPH ABS # 2.51 K/uL (1.2-3.4); MEAN CELL VOLUME 96.9 fL (80-100); MEAN CORPUSCULAR HEMOGLOBIN 31.4 pg (25-34); MEAN CORPUSCULAR HGB CONC 32.4 g/dl (32-36); MEAN PLATELET VOLUME 9.9 fL (7.4-10.4); MONO % 10.7 %; PLATELET COUNT 263 K/uL (130-400); RED BLOOD COUNT 4.21 M/uL (4.7-6.1); WHITE BLOOD COUNT 16.03 K/uL (4.8-10.8)
[2016-12-01] MEDS: ALBUTEROL 0.083% NEBU SOLN 3 ML VIAL INH SCH ×4 (07:31→19:17)
[2016-12-01] MEDS: TAMSULOSIN HCL 0.4 MG CAP PO SCH (07:34)
[2016-12-01] MEDS: DIVALPROEX 500 MG EXTENDED RELEASE TAB PO SCH ×2 (07:34→21:29)
[2016-12-01] MEDS: BUDESONIDE/FORMOTEROL FUMARATE 160/4.5 60 PUFFS/INHALER INH SCH ×2 (07:34→21:29)
[2016-12-01] MEDS: DILTIAZEM HCL 60 MG TAB PO SCH ×3 (07:34→18:41)
[2016-12-01] MEDS: FINASTERIDE 5 MG TAB PO SCH (07:34)
[2016-12-01] MEDS: TIOTROPIUM BROMIDE 5 PUFF/90 MCG INH INH SCH (07:34)
[2016-12-01] MEDS: OMEGA-3 (PURIFIED FISH OIL) 1 GM CAP PO SCH (07:34)
[2016-12-01 07:38] LABS: PARTIAL THROMBOPLASTIN RATIO 2.9
[2016-12-01 07:46] LABS: CALCIUM 9.2 mg/dl (8.5-10.1); CREATININE 0.69 mg/dl (0.60-1.40); MAGNESIUM 2.5 mg/dl (1.8-2.4); POTASSIUM 4.4 mmol/L (3.5-5.1)
[2016-12-01] MEDS: INSULIN ASPART 100 UNITS/ML 3 ML PEN SC SCH ×4 (08:28→21:30)
[2016-12-01] MEDS ORDERED: INSULIN GLARGINE SOLOSTAR 100 UNITS/ML 3 ML PEN SC SCH ×3 (09:00→21:00)
[2016-12-01] MEDS: CHOLESTYRAMINE LIGHT 4 GM PKT PO SCH (10:26)
[2016-12-01 11:55] LABS: ISTAT CREATININE 0.5 mg/dl (0.6-1.3); ISTAT IONIZED CALCIUM 1.17 mmol/l (1.12-1.32)
[2016-12-01] MEDS: DILTIAZEM HCL INJ 125 MG in DEXTROSE 5% 100ML IV PRN (12:28)
--- NOTE | 2016-12-01 12:49 | Pharmacy Progress Note ---
Glycemic Control Progress Note Date of Service Dec 01, 2016. Scope Glycemic Pharmacist consulted for glycemic control to write orders per [facility] inpatient glycemic control protocol. Objective Accuchecks BSG (last 24hrs): Test 11/30/16 10:59 11/30/16 16:14 11/30/16 21:17 12/01/16 02:01 Bedside Glucose 249 mg/dl (70-99) 287 mg/dl (70-99) 279 mg/dl (70-99) 252 mg/dl (70-99) Test 12/01/16 06:55 12/01/16 07:17 Random Glucose 208 mg/dl (70-99) Bedside Glucose 200 mg/dl (70-99) HbA1c: Test 11/30/16 11:51 Hemoglobin A1c 7.6 % (4.5-5.6) H Recent Pertinent Medications The patient is currently receiving: * Basal insulin: Lantus 20 units every 12 hours * Correctional Insulin: Novolog Correction per scale ACHS Goal Range: Low 110 mg/dL - High 150 mg/dL Correction Factor: 15 mg/dL/unit * Prandial insulin: Per carb ratio of 1 unit per 5 grams CHO consumed Outpatient Anti-Diabetic Meds no outpatient diabetes medications Assessment & Plan ASSESSMENT: * See progress note from 11/30/16 for more background info, in short: * Pt receiving SQ basal bolus insulin regimen for hyperglycemia secondary to COPD exacerbation on Rocephin and Zithromax, currently on heparin and diltiazem drips both mixed in dextrose, and received 1 day of Solu-Medrol 60 mg IV q6 hours changed to prednisone 40 mg daily. * Patient is currently receiving an average of 137 units of insulin per day * 40 units of basal insulin * 97 units of prandial/correctional insulin * BSGs ranging 232 - 287 mg/dl over the past 24hrs * Changes needed to insulin regimen: * AM Fasting BSG = 200 mg/dl. This is in above goal range for patient based on inpatient targets and co-morbidities. Therefore Basal insulin will be increased x 1 dose then continued at Lantus 20 units SQ BID. Patient received an extra 7 units of Novolog overnight. Steroids were decreased from IV to PO yesterday, and therefore their effects will be decreasing soon. Since the fasting today was only slightly improved compared to yesterday increased Lantus this morning only. * Post-prandial BSGs are elevated but remain consistent throughout the day. Currently parameters are weight-based stress of 3. At lunchtime, the patient's blood sugar karyn approximately 60 points. Therefore tightened carbohydrate ratio from 5 to 4... will reduce Lantus scale to compensate. * Total daily dose = ~130 units. This should decrease significantly with steroid tapering. PLAN FOR INPATIENT GLYCEMIC CONTROL: * INCREASING Lantus to 25 units X1 then 15-20 units SQ BID (Lantus 15 units if BSG less than 180 mg/dL and Lantus 20 units if BSG 180 mg/dL or greater) * Continuing correction factor of 15 mg/dl/unit * TIGHTENING carb ratio to 1 unit per 4 grams CHO consumed * Continuing goal range of Low 110 mg/dL - High 150 mg/dL RECOMMENDATIONS FOR DISCHARGE: * Patient HbA1C is slightly elevated for his goal (6.6%-7.5%) so may consider addition of oral agent for patient. Patient may be a candidate for metformin therapy (Serum creatinine okay, no history of lactic acidosis) - can start at 500 mg with meals and titrate upwards to goal of 2000 mg twice daily. Thank you.
--- NOTE | 2016-12-01 13:27 | Clinical Documentation Query ---
Dr. VILLAREAL, In your clinical opinion is this patient being managed for: ( x ) Acute systolic (congestive) heart failure ( ) COPD exacerbation without acute systolic CHF ( ) Not Agree ( ) Other explanation of clinical findings (Please Explain) ( ) Unable to determine (Please Define) ( ) Need to Discuss The medical record reflects the following clinical findings, treatment, and risk factors. Clinical Indicators:Pt presented with progressive SOB and productive cough. Was hypoxic on room air. 90% on RRA. Ejection Fraction = 40-45%. Treatment:O2 support/BIPAP, IV lasix, cardiolology consult, I/O, daily weights, manage A fib with IV cardizem Risk Factors: age, A fib, COPD exacerbation, HTN Please clarify and document your clinical opinion in the progress notes and discharge summary. Terms such as "probable", "suspected", "likely", "questionable", "possible", or "still to be ruled out" are acceptable. IF IN AGREEMENT, YOU MUST DOCUMENT ABOVE DIAGNOSTIC STATEMENT IN DAILY PROGRESS NOTES AND DISCHARGE SUMMARY. This document is not part of the patient's record. Thank You, Brooklynn Karimi, MURPHY [phone]
--- NOTE | 2016-12-01 14:08 | Hospitalist Progress Note ---
Hospitalist Progress Note Date of Service Dec 01, 2016. (Cindy Iraheta ., PA-C) Subjective Pt evaluation today including: conversation w/ patient, physical exam, lab review, review of studies, review of inpatient medication list Voiding: flor catheter in place (draining clear/yellow urine) Patient states he is feeling well. Breathing has improved- on 2L O2 NC +productive cough but sputum production now clear/white in color +chronic diarrhea- controlled w/ Questran Lives in a multiple story house- ambulates w/ a walker and has a walker on each floor. Denies falls. Denies difficulty with stairs. Patient denies any fever, chills, sweats, lightheadedness, dizziness, vision changes, CP, palpitations, edema, SOB, wheezing, abdominal pain, nausea, vomiting, urinary symptoms, melena, numbness/tingling, weakness, muscle/joint pain, anxiety/depression, active bleeding, or new skin discoloration/changes. (Cindy Iraheta ., PA-C) Medications Current Inpatient Medications Medications (Trade) Dose Ordered Sig/Cesar Route Start Time Stop Time Status Last Admin Dose Admin Ioversol (Optiray 320) 111 ml UD PRN IV 11/29/16 13:30 12/03/16 13:29 Diltiazem HCl 125 mg/Dextrose 125 ml @ 0 mls/hr Q0M PRN IV 11/29/16 17:30 12/29/16 17:29 12/01/16 12:28 10 MLS/HR Acetaminophen (Tylenol Tab) 650 mg Q4H PRN PO 11/29/16 17:45 12/29/16 17:44 11/30/16 19:26 650 MG Levalbuterol (Xopenex 1.25MG/ 0.5ML Neb) 1.25 mg Q4H PRN INH 11/29/16 17:45 12/29/16 17:44 Morphine Sulfate (MoRPHine SULFATE INJ) 4 mg Q2H PRN IV 11/29/16 17:45 12/13/16 17:44 Atorvastatin Calcium (Lipitor Tab) 40 mg QPM PO 11/29/16 21:00 12/29/16 20:59 11/30/16 19:36 40 MG Divalproex Sodium (Depakote Extended Rel Tab) 1,000 mg QAM PO 11/30/16 09:00 10/10/17 08:59 12/01/16 07:34 1,000 MG Divalproex Sodium (Depakote Extended Rel Tab) 500 mg QPM PO 11/29/16 21:00 12/29/16 20:59 11/30/16 19:36 500 MG Finasteride (Proscar Tab) 5 mg QAM PO 11/30/16 09:00 12/30/16 08:59 12/01/16 07:34 5 MG Fish Oil ([place]-3 (Purified Fish Oil) Cap) 1 gm QAM PO 11/30/16 09:00 12/30/16 08:59 12/01/16 07:34 1 GM Levothyroxine Sodium (Synthroid Tab) 50 mcg DAILYBB PO 11/30/16 06:00 12/30/16 05:59 12/01/16 05:22 50 MCG Tamsulosin HCl (Flomax Cap) 0.4 mg QAM PO 11/30/16 09:00 12/30/16 08:59 12/01/16 07:34 0.4 MG Cholestyramine Resin (Questran Powder Light) 1 gm DAILY@1000 PO 11/30/16 10:00 12/30/16 09:59 12/01/16 10:26 1 GM Budesonide/ Formoterol Fumarate (Symbicort 160/ 4.5 Inh) 2 puffs BID INH 11/30/16 09:00 12/30/16 08:59 12/01/16 07:34 2 PUFFS Azithromycin 250 mg/Dextrose 252.5 ml @ 125 mls/hr DAILY@2000 IV 11/30/16 20:00 12/05/16 22:02 11/30/16 19:27 125 MLS/HR Heparin Sodium/ Dextrose 500 ml @ 37 mls/hr [id number] PRN IV 11/29/16 19:30 12/29/16 19:29 12/01/16 02:14 39 MLS/HR Miscellaneous Information (Consult Glycemic Management Pharmacy) 1 ea DAILY PRN N/A 11/30/16 00:45 12/30/16 00:44 Glucose (Glucose 40% Gel) 15-30 GRAMS 15 GRAMS... UD PRN PO 11/30/16 01:00 12/30/16 00:59 Glucose (Glucose Chew Tab) 4-8 Tablets 4 Tabl... UD PRN PO 11/30/16 01:00 12/30/16 00:59 Dextrose (Dextrose 50% 50ML Syringe) 25-50ML OF 50% DW IV FOR... UD PRN IV 11/30/16 01:00 12/30/16 00:59 Glucagon (Glucagon Inj) 1 mg UD PRN SQ 11/30/16 01:00 12/30/16 00:59 Insulin Aspart (novoLOG ASPART) SLIDING SCALE ACHS SC 11/30/16 06:45 12/30/16 06:44 12/01/16 12:19 20 UNITS Diltiazem HCl (Cardizem Tab) 60 mg TID PO 11/30/16 14:00 12/30/16 13:59 12/01/16 07:34 60 MG Guaifenesin (Robitussin Sugar Free Syrup) 200 mg Q6H PRN PO 11/30/16 11:15 12/30/16 11:14 11/30/16 19:26 200 MG Tiotropium [place] (Spiriva Handihaler Inhaler) 1 puff QAM INH 12/01/16 09:00 12/31/16 08:59 12/01/16 07:34 1 PUFF Albuterol Sulfate (Ventolin 0.083% 2.5MG/3ML Neb) 2.5 mg QIDR INH 11/30/16 12:00 12/30/16 11:59 12/01/16 11:18 2.5 MG Prednisone (PredniSONE TAB) 40 mg DAILY PO 12/01/16 09:00 12/04/16 10:00 12/01/16 07:34 40 MG Ceftriaxone Sodium 1000 mg/ Dextrose 60 ml @ 100 mls/hr Q24H IV 11/30/16 18:00 12/07/16 17:59 11/30/16 18:15 100 MLS/HR Insulin Glargine (Lantus Solostar Pen) SEE PROTOCOL BID SC 12/01/16 21:00 12/31/16 20:59 Insulin Aspart (novoLOG ASPART) SLIDING SCALE TODAY@0200 SC 12/02/16 02:00 12/02/16 02:01 (Cindy Iraheta, DYLAN) Objective Vital Signs Date Time Temp Pulse Resp B/P (MAP) Pulse Ox O2 Delivery O2 Flow Rate FiO2 12/01/16 12:03 91 Nasal Cannula 2.0 12/01/16 11:53 36.5 85 22 114/60 (78) 90 Nasal Cannula 2.0 12/01/16 11:18 86 18 92 Nasal Cannula 2.0 12/01/16 08:01 91 Nasal Cannula 2.0 12/01/16 07:31 81 18 91 Nasal Cannula 2.0 12/01/16 07:09 36.6 86 21 124/79 (94) 95 BiPAP 12/01/16 04:06 BiPAP 50 12/01/16 03:16 36.4 83 20 100/63 (75) 97 BiPAP 12/01/16 01:13 36.5 73 20 121/81 (94) 97 BiPAP 12/01/16 00:05 BiPAP 50 11/30/16 23:55 78 98 50 11/30/16 22:50 36.6 87 15 94 4.0 11/30/16 22:00 87 15 119/64 (82) 94 Nasal Cannula 4.0 11/30/16 21:30 78 15 113/66 (82) 96 Nasal Cannula 4.0 11/30/16 21:00 91 14 109/81 (90) 97 Nasal Cannula 4.0 11/30/16 20:31 98 24 116/57 (76) 96 Nasal Cannula 6.0 11/30/16 20:27 97 18 95 Nasal Cannula 6.0 11/30/16 20:00 Nasal Cannula 6.0 11/30/16 20:00 36.6 73 17 124/72 (89) 95 Nasal Cannula 6.0 11/30/16 19:30 84 20 122/72 (89) 95 Nasal Cannula 6.0 11/30/16 19:00 78 17 120/65 (83) Nasal Cannula 6.0 11/30/16 18:00 36.7 69 22 124/66 (85) 92 Nasal Cannula 6.0 11/30/16 16:00 36.7 74 22 111/64 (80) 92 Nasal Cannula 6.0 11/30/16 16:00 92 Nasal Cannula 6.0 11/30/16 15:12 89 18 93 Nasal Cannula 6.0 11/30/16 14:00 36.8 74 15 109/63 (78) 91 Nasal Cannula 6.0 (Murarik, Cindy ., PA-C) Physical Exam General Appearance: no apparent distress, + obese, + pertinent finding (2L o2 NC) Eyes: normal inspection, PERRL ENT: hearing grossly normal Neck: supple Respiratory/Chest: lungs clear, no respiratory distress, no accessory muscle use, + decreased breath sounds (> at lung bases ) Cardiovascular: + irregularly irregular (rate controlled ) Abdomen: normal bowel sounds, non tender, soft Extremities: no calf tenderness, + swelling (+1 pitting edema of bilateral lower extremities), + pertinent finding (chronic venous stasis changes to bilateral lower extremities ) Neurologic/Psychiatric: alert, oriented x 3 Skin: normal color, warm/dry, no rash (Cindy Iraheta ., CAMILLE-C) Laboratory Results Last 24 Hours Test 11/30/16 16:14 11/30/16 17:43 11/30/16 21:17 12/01/16 01:07 Bedside Glucose 287 mg/dl 279 mg/dl Troponin I < 0.015 ng/ml Activated Partial Thromboplast Time 37.9 SECONDS Partial Thromboplastin Ratio 1.5 Test 12/01/16 02:01 12/01/16 06:55 12/01/16 07:17 12/01/16 10:59 Bedside Glucose 252 mg/dl 200 mg/dl 263 mg/dl White Blood Count 16.03 K/uL Red Blood Count 4.21 M/uL Hemoglobin 13.2 g/dL Hematocrit 40.8 % Mean Corpuscular Volume 96.9 fL Mean Corpuscular Hemoglobin 31.4 pg Mean Corpuscular Hemoglobin Concent 32.4 g/dl Platelet Count 263 K/uL Mean Platelet Volume 9.9 fL Neutrophils (%) (Auto) 73.0 % Lymphocytes (%) (Auto) 15.7 % Monocytes (%) (Auto) 10.7 % Eosinophils (%) (Auto) 0.1 % Basophils (%) (Auto) 0.1 % Neutrophils # (Auto) 11.70 K/uL Lymphocytes # (Auto) 2.51 K/uL Monocytes # (Auto) 1.72 K/uL Eosinophils # (Auto) 0.02 K/uL Basophils # (Auto) 0.01 K/uL RDW Standard Deviation 50.9 fL RDW Coefficient of Variation 14.3 % Immature Granulocyte % (Auto) 0.4 % Immature Granulocyte # (Auto) 0.07 K/uL Activated Partial Thromboplast Time 76.6 SECONDS Partial Thromboplastin Ratio 2.9 Sodium Level 130 mmol/L Potassium Level 4.4 mmol/L Chloride Level 91 mmol/L Carbon Dioxide Level 32 mmol/L Anion Gap 7.0 mmol/L Blood Urea Nitrogen 23 mg/dl Creatinine 0.69 mg/dl Est Creatinine Clear Calc Drug Dose 128.4 ml/min Estimated GFR () 113.9 Estimated GFR (Non- 98.2 BUN/Creatinine Ratio 34.0 Random Glucose 208 mg/dl Calcium Level 9.2 mg/dl Magnesium Level 2.5 mg/dl (Cindy Iraheta, DYLAN) Assessment and Plan 66 y/o M Hx Bipolar disease, Hypothyroidism, morbid obesity, HTN, HPL, BPH, heavy smoker. Pt presents with a chief complaint of progressive SOB and productive cough. He was notably hypoxic on arrival to the ER, exhibiting labored breathing and wheezing on exam. He had not complained of CP, N/V, fevers. He was placed on BIPAP and sent for a CTA which did not show a PE and was consistent with pulmonary edema. He was treated for CHF and also for suspected COPD in the ER. While in the ER he developed rapid AF at a rate of up to 180. Acute hypoxic respiratory failure due to COPD exacerbation: - O2 protocol (goal 90-92%), wean as tolerated- does not currently wear O2 at home, will likely need at discharge - IV Solu Medrol and transitioned to Prednisone 40mg daily started on 12/01- continue to taper - DuoNeb q4 hrs PRN, Symbicort, Spiriva - IV Rocephin and Zithromax due to purulent thick yellow/brown sputum- IMPROVING Leukocytosis, ?secondary to IV steroids vs infection: - Continue to monitor, IV antibiotics as above - Follow CBC REHANA: BiPAP HS- will need outpatient setup at discharge Paroxysmal atrial fibrillation w/ RVR: - IV Diltiazem drip and transitioned to Diltiazem 60mg TID - IV heparin gtt- defer to cardiology for oral anticoagulation - Cardiology following, appreciate recommendations CHF: - ECHO completed - Treated w/ Lasix IV 40 mg x1 - Cardiology following Hyperglycemia- HgbA1c at 7.6%: - Pharmacy consulted for glycemic management - simulation educator consultation Hyponatremia- IMPROVING: Follow PRP Dyslipidemia: Continue Lipitor 40 mg daily Bipolar: Continue Depakote 1000 mg QAM and 500 mg HS Hypothyroid: Continue Synthroid 50 mcg daily Chronic diarrhea: Continue Questran BPH: Continue Flomax 0.4 mg QAM, Proscar 5 mg daily DVT prophylaxis: heparin gtt Code Status: LEVEL I, FULL Dispo: From home, lives w/ two tenants- PT/OT and hospice social worker consulted (Cindy Iraheta ., PA-C) Attending Attestation: Pt seen/examined, chart reviewed, care plan d/w CAMILLE Iraheta. I agree w/ the swift components of her documentation. Pt feeling better rates on tele - most <100 at rest still with cough and O2 requirement reports he has had a sleep study in the past and was told "mild to moderate" VSS gen - nad neck - no obvious JVD sitting upright at 90 degrees heart - irregular lungs - crackles bases, airation fair, no wheeze abd - soft, obese ext - trace edema b/l A/P: 1. acute hypoxic resp failure 2. new onset a. fib with RVR 3. COPD exacerbation (suspected) 4. acute systolic CHF 5. bipolar d/o wean cardizem drip off; increase oral cardizem to 60 q6h start eliquis 5mg BID; stop heparin drip later tonight d/c flor lasix 20mg IV x 1 for #4 cont steroids stop IV abx; no discrete infiltrates seen on imaging; transition to PO doxycycline 100 BID cont tele progressing Katalina RUBIO MD (Alcides Rubio MD)
[2016-12-01 14:54] LABS: PARTIAL THROMBOPLASTIN RATIO 1.7
[2016-12-01] MEDS ORDERED: HEPARIN IV BOLUS 4,000 UNIT in SYRINGE 0 ML IV ONE (17:00)
[2016-12-01] MEDS: CEFTRIAXONE SOD INJ 1,000 MG in DEXTROSE 5% 50ML 50 ML IV SCH (17:07)
[2016-12-01] MEDS ORDERED: FUROSEMIDE INJ 20 MG in SYRINGE 0 ML IV ONE (18:30)
[2016-12-01] MEDS: APIXABAN 2.5 MG TAB PO SCH (21:29)
[2016-12-01] MEDS: DOXYCYCLINE HYCLATE 100 MG CAP PO SCH (21:29)
[2016-12-01] MEDS: ATORVASTATIN 40 MG TAB PO SCH (21:29)
[2016-12-01] MEDS: INSULIN GLARGINE SOLOSTAR 100 UNITS/ML 3 ML PEN SC SCH (21:31)
[2016-12-01 23:30] LABS: PARTIAL THROMBOPLASTIN RATIO 0.9
[2016-12-02] VITALS (13 sets, daily range): BP systolic 98–153; BP diastolic 54–94; PULSE 74–108; TEMP 36.2–36.9; O2SAT 91–99
[2016-12-02] MEDS ORDERED: INSULIN ASPART 100 UNITS/ML 3 ML PEN SC SCH (02:00)
[2016-12-02] MEDS: DILTIAZEM HCL 60 MG TAB PO SCH ×4 (03:07→19:37)
[2016-12-02] MEDS: LEVOTHYROXINE 50 MCG TAB PO SCH (06:02)
[2016-12-02 07:17] LABS: BASO % 0.1 %; BASO ABS # 0.01 K/uL (0-0.2); COMPLETE YES; EOS % 0.4 %; HEMATOCRIT 42.5 % (42-52); IG% 0.3 %; LYMPH % 31.9 %; LYMPH ABS # 4.05 K/uL (1.2-3.4); MEAN CELL VOLUME 98.4 fL (80-100); MEAN CORPUSCULAR HEMOGLOBIN 31.5 pg (25-34); MEAN PLATELET VOLUME 9.8 fL (7.4-10.4); MONO % 10.7 %; NEUT % 56.6 %; PLATELET COUNT 251 K/uL (130-400); RED BLOOD COUNT 4.32 M/uL (4.7-6.1); WHITE BLOOD COUNT 12.69 K/uL (4.8-10.8)
[2016-12-02] MEDS: ALBUTEROL 0.083% NEBU SOLN 3 ML VIAL INH SCH ×4 (07:23→19:00)
[2016-12-02 07:31] LABS: PARTIAL THROMBOPLASTIN RATIO 0.9
[2016-12-02 07:56] LABS: BUN/CREATININE RATIO 25.6 (10-20); CALCIUM 9.6 mg/dl (8.5-10.1); CREATININE 0.7 mg/dl (0.60-1.40); MAGNESIUM 2.5 mg/dl (1.8-2.4); POTASSIUM 4.8 mmol/L (3.5-5.1)
[2016-12-02] MEDS: APIXABAN 2.5 MG TAB PO SCH ×2 (08:02→20:46)
[2016-12-02] MEDS: OMEGA-3 (PURIFIED FISH OIL) 1 GM CAP PO SCH (08:02)
[2016-12-02] MEDS: FINASTERIDE 5 MG TAB PO SCH (08:02)
[2016-12-02] MEDS: BUDESONIDE/FORMOTEROL FUMARATE 160/4.5 60 PUFFS/INHALER INH SCH ×2 (08:03→20:44)
[2016-12-02] MEDS: TAMSULOSIN HCL 0.4 MG CAP PO SCH (08:03)
[2016-12-02] MEDS: DOXYCYCLINE HYCLATE 100 MG CAP PO SCH ×2 (08:03→20:47)
[2016-12-02] MEDS: DIVALPROEX 500 MG EXTENDED RELEASE TAB PO SCH ×2 (08:04→20:46)
[2016-12-02] MEDS: TIOTROPIUM BROMIDE 5 PUFF/90 MCG INH INH SCH (08:04)
[2016-12-02] MEDS: INSULIN ASPART 100 UNITS/ML 3 ML PEN SC SCH ×4 (08:10→20:53)
[2016-12-02] MEDS: INSULIN GLARGINE SOLOSTAR 100 UNITS/ML 3 ML PEN SC SCH ×2 (08:11→20:52)
[2016-12-02] MEDS ORDERED: FUROSEMIDE INJ 20 MG in SYRINGE 0 ML IV SCH (09:30)
--- NOTE | 2016-12-02 09:57 | Pharmacy Progress Note ---
Glycemic Control Progress Note Date of Service Dec 02, 2016. Scope Glycemic Pharmacist consulted for glycemic control to write orders per [facility] inpatient glycemic control protocol. Objective Accuchecks BSG (last 24hrs): Test 12/01/16 10:59 12/01/16 15:59 12/01/16 20:37 12/02/16 02:37 Bedside Glucose 263 mg/dl (70-99) 269 mg/dl (70-99) 215 mg/dl (70-99) 168 mg/dl (70-99) Test 12/02/16 06:54 12/02/16 06:56 Bedside Glucose 123 mg/dl (70-99) Random Glucose 122 mg/dl (70-99) HbA1c: Test 11/30/16 11:51 Hemoglobin A1c 7.6 % (4.5-5.6) H Recent Pertinent Medications The patient is currently receiving: * Basal insulin: Lantus 25 units x 1 then Lantus 15-20 units (15 units if blood sugar 180 mg/dl or less and 20 units if blood sugar greater than 180 mg/dL) * Correctional Insulin: Novolog Correction per scale ACHS Goal Range: Low 110 mg/dL - High 150 mg/dL Correction Factor: 15 mg/dL/unit * Prandial insulin: Per carb ratio of 1 unit per 4 grams CHO consumed Outpatient Anti-Diabetic Meds no home medications Assessment & Plan ASSESSMENT: * See progress note from 11/30/16 for more background info, in short: * Pt receiving SQ basal bolus insulin regimen for hyperglycemia secondary to COPD exacerbation on Rocephin and Zithromax, currently on heparin and diltiazem drips both mixed in dextrose, and received 1 day of Solu-Medrol 60 mg IV q6 hours changed to prednisone 40 mg daily (day2). * Patient is currently receiving an average of 119 (down from 137 units on ) units of insulin per day * 45 units of basal insulin * 52 units of prandial/correctional insulin * BSGs ranging 200-269 mg/dl over the past 24hrs * Changes needed to insulin regimen: * AM Fasting BSG = 123 mg/dl. This is within goal range for patient based on inpatient targets and co-morbidities. This morning's fasting blood sugar is greatly improved from yesterday's. Will continue sliding scale for this morning and then adjusted to a lower scale this evening to accommodate diminishing effects of steroids. * Post-prandial BSGs are elevated but remain consistent throughout the day. Yesterday, the carbohydrate ratio was tightened from 5 to 4 at lunchtime. This was effective. Due to patient's decreasing needs for insulin, will loosen carbohydrate ratio for breakfast and may loosen further today depending on patient's trends. * Total daily dose = ~120 units. This should decrease significantly with steroid tapering. PLAN FOR INPATIENT GLYCEMIC CONTROL: * DECREASING Lantus to 15 units x 1 then Lantus 15-20 units BID (15 units if blood sugar less than 160 mg/dL and 20 units if blood sugar 160 mg/dL or greater ) * Continuing correction factor of 15 mg/dl/unit * LOOSENING carb ratio to 1 unit per 5 grams CHO consumed * Continuing goal range of Low 110 mg/dL - High 150 mg/dL RECOMMENDATIONS FOR DISCHARGE: * Patient HbA1C is slightly elevated for his goal (6.6%-7.5%) so may consider addition of oral agent for patient. Patient may be a candidate for metformin therapy (Serum creatinine okay, no history of lactic acidosis) - can start at 500 mg with meals and titrate upwards to goal of 2000 mg twice daily. Thank you.
[2016-12-02] MEDS: CHOLESTYRAMINE LIGHT 4 GM PKT PO SCH ×2 (10:06→21:47)
--- NOTE | 2016-12-02 13:30 | Hospitalist Progress Note ---
Hospitalist Progress Note Date of Service Dec 02, 2016. (Cindy Iraheta ., GLORIAC) Subjective Pt evaluation today including: conversation w/ patient, physical exam, lab review, review of studies, review of inpatient medication list Voiding: no voiding problems Patient feeling well. +non-productive cough. Brown removed- urinating w/out difficulty. Eating and drinking OK. Patient denies any fever, chills, sweats, lightheadedness, dizziness, vision changes, CP, palpitations, edema, SOB, wheezing, abdominal pain, nausea, vomiting, diarrhea, urinary symptoms, melena, numbness/tingling, weakness, muscle/joint pain, anxiety/depression, active bleeding, or new skin discoloration/changes. (Cindy Iraheta ., GLORIAC) Medications Current Inpatient Medications Medications (Trade) Dose Ordered Sig/Cesar Route Start Time Stop Time Status Last Admin Dose Admin Ioversol (Optiray 320) 111 ml UD PRN IV 11/29/16 13:30 12/03/16 13:29 Acetaminophen (Tylenol Tab) 650 mg Q4H PRN PO 11/29/16 17:45 12/29/16 17:44 11/30/16 19:26 650 MG Levalbuterol (Xopenex 1.25MG/ 0.5ML Neb) 1.25 mg Q4H PRN INH 11/29/16 17:45 12/29/16 17:44 Morphine Sulfate (MoRPHine SULFATE INJ) 4 mg Q2H PRN IV 11/29/16 17:45 12/13/16 17:44 Atorvastatin Calcium (Lipitor Tab) 40 mg QPM PO 11/29/16 21:00 12/29/16 20:59 12/01/16 21:29 40 MG Divalproex Sodium (Depakote Extended Rel Tab) 1,000 mg QAM PO 11/30/16 09:00 12/30/16 08:59 12/02/16 08:04 1,000 MG Divalproex Sodium (Depakote Extended Rel Tab) 500 mg QPM PO 11/29/16 21:00 12/29/16 20:59 12/01/16 21:29 500 MG Finasteride (Proscar Tab) 5 mg QAM PO 11/30/16 09:00 12/30/16 08:59 12/02/16 08:02 5 MG Fish Oil ([place]-3 (Purified Fish Oil) Cap) 1 gm QAM PO 11/30/16 09:00 12/30/16 08:59 12/02/16 08:02 1 GM Levothyroxine Sodium (Synthroid Tab) 50 mcg DAILYBB PO 11/30/16 06:00 12/30/16 05:59 12/02/16 06:02 50 MCG Tamsulosin HCl (Flomax Cap) 0.4 mg QAM PO 11/30/16 09:00 12/30/16 08:59 12/02/16 08:03 0.4 MG Budesonide/ Formoterol Fumarate (Symbicort 160/ 4.5 Inh) 2 puffs BID INH 11/30/16 09:00 12/30/16 08:59 12/02/16 08:03 2 PUFFS Miscellaneous Information (Consult Glycemic Management Pharmacy) 1 ea DAILY PRN N/A 11/30/16 00:45 12/30/16 00:44 Glucose (Glucose 40% Gel) 15-30 GRAMS 15 GRAMS... UD PRN PO 11/30/16 01:00 12/30/16 00:59 Glucose (Glucose Chew Tab) 4-8 Tablets 4 Tabl... UD PRN PO 11/30/16 01:00 12/30/16 00:59 Dextrose (Dextrose 50% 50ML Syringe) 25-50ML OF 50% DW IV FOR... UD PRN IV 11/30/16 01:00 12/30/16 00:59 Glucagon (Glucagon Inj) 1 mg UD PRN SQ 11/30/16 01:00 12/30/16 00:59 Insulin Aspart (novoLOG ASPART) SLIDING SCALE ACHS SC 11/30/16 06:45 12/30/16 06:44 12/02/16 12:31 11 UNITS Guaifenesin (Robitussin Sugar Free Syrup) 200 mg Q6H PRN PO 11/30/16 11:15 12/30/16 11:14 11/30/16 19:26 200 MG Tiotropium [place] (Spiriva Handihaler Inhaler) 1 puff QAM INH 12/01/16 09:00 12/31/16 08:59 12/02/16 08:04 1 PUFF Albuterol Sulfate (Ventolin 0.083% 2.5MG/3ML Neb) 2.5 mg QIDR INH 11/30/16 12:00 12/30/16 11:59 12/02/16 07:23 2.5 MG Prednisone (PredniSONE TAB) 40 mg DAILY PO 12/01/16 09:00 12/04/16 10:00 12/02/16 08:03 40 MG Insulin Glargine (Lantus Solostar Pen) SEE PROTOCOL BID SC 12/01/16 21:00 12/31/16 20:59 12/02/16 08:11 15 UNITS Diltiazem HCl (Cardizem Tab) 60 mg Q6H PO 12/01/16 20:00 12/30/16 13:59 12/02/16 08:03 60 MG Apixaban (Eliquis Tab) 5 mg BID PO 12/01/16 21:00 12/31/16 20:59 12/02/16 08:02 5 MG Doxycycline Hyclate (Vibramycin Cap) 100 mg BID PO 12/01/16 21:00 12/08/16 20:59 12/02/16 08:03 100 MG Cholestyramine Resin (Questran Powder Light) 1 gm BID@1000,2200 PO 12/02/16 10:00 01/01/17 09:59 12/02/16 10:06 1 GM (Cindy Iraheta, GLORIAC) Objective Vital Signs Date Time Temp Pulse Resp B/P (MAP) Pulse Ox O2 Delivery O2 Flow Rate FiO2 12/02/16 12:20 36.8 74 18 109/60 (76) 97 12/02/16 12:10 Nasal Cannula 2.0 12/02/16 08:10 Nasal Cannula 2.0 12/02/16 08:06 36.9 84 18 98/54 (69) 96 12/02/16 07:23 95 18 92 Nasal Cannula 2.0 12/02/16 04:22 36.4 87 19 119/71 (87) 95 BiPAP 50 12/02/16 04:19 BiPAP 12/02/16 00:14 36.2 90 20 122/85 (97) 99 BiPAP 50 12/02/16 00:05 BiPAP 12/01/16 22:40 54 99 50 12/01/16 20:50 Nasal Cannula 2.0 12/01/16 19:57 36.5 90 22 116/74 (88) 93 Nasal Cannula 2.0 12/01/16 19:17 88 18 92 Nasal Cannula 2.0 12/01/16 16:07 91 Nasal Cannula 2.0 12/01/16 15:34 94 18 96 Nasal Cannula 2.0 12/01/16 15:17 36.6 90 21 107/60 (76) 95 Nasal Cannula 2.0 (Cindy Iraheta ., PA-C) Physical Exam General Appearance: no apparent distress, + obese, + pertinent finding (2L O2 NC ) Eyes: normal inspection, PERRL ENT: hearing grossly normal Neck: supple Respiratory/Chest: lungs clear, no respiratory distress, no accessory muscle use, + decreased breath sounds Cardiovascular: + irregularly irregular (rate controlled ) Abdomen: normal bowel sounds, non tender, soft Extremities: + swelling (+1 pitting edema of bilateral lower extremities ), + pertinent finding (chronic venous stasis changes to bilateral lower extremities ) Neurologic/Psychiatric: alert, oriented x 3 Skin: normal color, warm/dry, no rash (Cindy Iraheta ., PA-C) Laboratory Results Last 24 Hours Test 12/01/16 14:00 12/01/16 15:59 12/01/16 20:37 12/01/16 23:11 Activated Partial Thromboplast Time 43.3 SECONDS 24.3 SECONDS Partial Thromboplastin Ratio 1.7 0.9 Bedside Glucose 269 mg/dl 215 mg/dl Test 12/02/16 02:37 12/02/16 06:54 12/02/16 06:56 12/02/16 11:21 Bedside Glucose 168 mg/dl 123 mg/dl 124 mg/dl White Blood Count 12.69 K/uL Red Blood Count 4.32 M/uL Hemoglobin 13.6 g/dL Hematocrit 42.5 % Mean Corpuscular Volume 98.4 fL Mean Corpuscular Hemoglobin 31.5 pg Mean Corpuscular Hemoglobin Concent 32.0 g/dl Platelet Count 251 K/uL Mean Platelet Volume 9.8 fL Neutrophils (%) (Auto) 56.6 % Lymphocytes (%) (Auto) 31.9 % Monocytes (%) (Auto) 10.7 % Eosinophils (%) (Auto) 0.4 % Basophils (%) (Auto) 0.1 % Neutrophils # (Auto) 7.18 K/uL Lymphocytes # (Auto) 4.05 K/uL Monocytes # (Auto) 1.36 K/uL Eosinophils # (Auto) 0.05 K/uL Basophils # (Auto) 0.01 K/uL RDW Standard Deviation 51.6 fL RDW Coefficient of Variation 14.4 % Immature Granulocyte % (Auto) 0.3 % Immature Granulocyte # (Auto) 0.04 K/uL Activated Partial Thromboplast Time 23.6 SECONDS Partial Thromboplastin Ratio 0.9 Sodium Level 137 mmol/L Potassium Level 4.8 mmol/L Chloride Level 95 mmol/L Carbon Dioxide Level 37 mmol/L Anion Gap 5.0 mmol/L Blood Urea Nitrogen 18 mg/dl Creatinine 0.70 mg/dl Est Creatinine Clear Calc Drug Dose 129.0 ml/min Estimated GFR () 113.2 Estimated GFR (Non- 97.7 BUN/Creatinine Ratio 25.6 Random Glucose 122 mg/dl Calcium Level 9.6 mg/dl Magnesium Level 2.5 mg/dl (Cindy Iraheta, PA-C) Assessment and Plan 66 y/o M Hx Bipolar disease, Hypothyroidism, morbid obesity, HTN, HPL, BPH, heavy smoker. Pt presents with a chief complaint of progressive SOB and productive cough. He was notably hypoxic on arrival to the ER, exhibiting labored breathing and wheezing on exam. He had not complained of CP, N/V, fevers. He was placed on BIPAP and sent for a CTA which did not show a PE and was consistent with pulmonary edema. He was treated for CHF and also for suspected COPD in the ER. While in the ER he developed rapid AF at a rate of up to 180. Acute hypoxic respiratory failure due to COPD exacerbation- RESOLVED: - O2 protocol (goal 90-92%), wean as tolerated- does not currently wear O2 at home, will likely need at discharge - IV Solu Medrol and transitioned to Prednisone 40mg daily started on 12/01- continue to taper - DuoNeb q4 hrs PRN, Symbicort, Spiriva - IV Rocephin and Zithromax due to purulent thick yellow/brown sputum- IMPROVING - transitioned to Doxycycline 100 mg BID on 12/01 Leukocytosis, ?secondary to IV steroids vs infection- IMPROVING: - Continue to monitor, IV antibiotics as above - Follow CBC REHANA: BiPAP HS- will need outpatient setup at discharge Paroxysmal atrial fibrillation w/ RVR: - IV Diltiazem drip and transitioned to oral Diltiazem 60mg TID -- Cardiology switch medications to Coreg 6.25 mg BID and Diltiazem 240 mg QAM on 12/02 - IV heparin gtt- transitioned to Eliquis 5 mg BID on 12/01 - Cardiology following, appreciate recommendations Acute systolic CHF- IMPROVING: - ECHO completed - Treating w/ IV Lasix- monitoring I&Os and daily weights- negative net balance - Cardiology following Hyperglycemia- HgbA1c at 7.6%: - Pharmacy consulted for glycemic management- recommended Metformin at discharge - diabetic educator consultation Hyponatremia- RESOLVED: Follow PRP Dyslipidemia: Continue Lipitor 40 mg daily Bipolar: Continue Depakote 1000 mg QAM and 500 mg HS Hypothyroid: Continue Synthroid 50 mcg daily Chronic diarrhea: Continue Questran BID BPH: Continue Flomax 0.4 mg QAM, Proscar 5 mg daily DVT prophylaxis: Eliquis Code Status: LEVEL I, FULL Dispo: From home, lives w/ two tenants- PT/OT and child welfare social worker consulted (Cindy Iraheta ., PA-C) Attending Attestation: Pt seen/examined, chart reviewed, care plan d/w CAMILLE Iraheta. I agree w/ the swift components of her documentation. Cough is improved less dyspnea feels better tele - rates of a. fib low 100s or less (at rest) VSS gen - nad neck - no obvious JVD sitting upright at 90 degrees heart - irregular, borderline tachy lungs - much improved lung exam today with no wheeze and airation much better; no discernible rales today abd - soft, obese ext - trace edema b/l A/P: 1. acute hypoxic resp failure 2. new onset a. fib with RVR 3. COPD exacerbation (suspected) 4. acute systolic CHF 5. bipolar d/o 1 additional dose of IV lasix agree with addition of BB for a. fib especially in light of depressed EF EF was 65% on last echo at [facility] (2014) wean steroids tomorrow cont doxy trial off O2 today tele 1 more day Katalina RUBIO MD (Alcides Rubio MD)
--- NOTE | 2016-12-02 14:54 | Cardiology Follow-Up ---
Subjective Date of Service: Dec 01, 2016. Pt evaluation today including: conversation w/ patient, physical exam, chart review, review of studies, review of inpatient medication list History of Present Illness This is a very pleasant 66-year-old gentleman who has a history of obesity, hypothyroidism, hypertension but no known cardiac abnormalities. He presented with shortness of breath and cough, was noted to be hypoxic in the emergency room which was probably due to pulmonary edema. He does not have a history of congestive heart failure. He then developed atrial fibrillation while in the emergency room, and therefore was admitted. He was in atrial fibrillation from around 5 PM until around 8 PM on 11/29/2016, often with heart rates of 160-180 bpm. he had a brief recurrence subsequently for just a few minutes. On discussion with him on admission he thought he might of had this before, although he couldn't tell me when or under what circumstances. He recalls having brief palpitations at times, these sound more like premature beats but could be his atrial arrhythmia. He was not aware of the arrhythmia that he can recall while in the emergency room. Today he has no cardiovascular complaints, he is coughing hard and frequently but denies shortness of breath. Social History Smoking Status: Current Every Day Smoker History of Alcohol Use: Yes (RARELY) Review of Systems Respiratory: + cough, + wheezing, No shortness of breath Cardiac: No chest pain, No orthopnea, No PND, No edema, No palpitations Medications Cardiovascular: Item Value Date Time Diltiazem HCl 60 mg 11/30/16 1400 (Cardizem Tab) TID/PO 12/01/16 0734 Atorvastatin 40 mg 11/29/16 2100 Calcium QPM/PO 11/30/16 1936 (Lipitor Tab) Objective Vital Signs Past 12 Hours Date Time Temp Pulse Resp B/P (MAP) Pulse Ox O2 Delivery O2 Flow Rate FiO2 12/01/16 07:31 81 18 91 Nasal Cannula 2.0 12/01/16 07:09 36.6 86 21 124/79 (94) 95 BiPAP 12/01/16 04:06 BiPAP 50 12/01/16 03:16 36.4 83 20 100/63 (75) 97 BiPAP 12/01/16 01:13 36.5 73 20 121/81 (94) 97 BiPAP 12/01/16 00:05 BiPAP 50 11/30/16 23:55 78 98 50 11/30/16 22:50 36.6 87 15 94 4.0 11/30/16 22:00 87 15 119/64 (82) 94 Nasal Cannula 4.0 11/30/16 21:30 78 15 113/66 (82) 96 Nasal Cannula 4.0 Last Recorded Weight-Kilograms: 109.000 Physical Exam Constitutional: General Apperance: overweight Level of Distress: mild distress Lungs: Respiratory effort: good air movement Auscultation: no wheezing Cardiovascular: Heart Auscultation: no murmurs, no rubs, no gallops, irregular rate rhythm Peripheral Pulses: Bruits: none appreciated Extremities: no edema Data Laboratory Results: Last 24 Hours Test 11/30/16 10:59 11/30/16 11:51 11/30/16 12:45 11/30/16 16:14 Bedside Glucose 249 mg/dl 287 mg/dl Estimated Average Glucose 171 mg/dl Hemoglobin A1c 7.6 % Troponin I 0.017 ng/ml Urine Random Creatinine 83.0 mg/dl Urine Random Sodium < 5 mEq/L Test 11/30/16 17:43 11/30/16 21:17 12/01/16 01:07 12/01/16 02:01 Troponin I < 0.015 ng/ml Bedside Glucose 279 mg/dl 252 mg/dl Activated Partial Thromboplast Time 37.9 SECONDS Partial Thromboplastin Ratio 1.5 Test 12/01/16 06:55 12/01/16 07:17 White Blood Count 16.03 K/uL Red Blood Count 4.21 M/uL Hemoglobin 13.2 g/dL Hematocrit 40.8 % Mean Corpuscular Volume 96.9 fL Mean Corpuscular Hemoglobin 31.4 pg Mean Corpuscular Hemoglobin Concent 32.4 g/dl Platelet Count 263 K/uL Mean Platelet Volume 9.9 fL Neutrophils (%) (Auto) 73.0 % Lymphocytes (%) (Auto) 15.7 % Monocytes (%) (Auto) 10.7 % Eosinophils (%) (Auto) 0.1 % Basophils (%) (Auto) 0.1 % Neutrophils # (Auto) 11.70 K/uL Lymphocytes # (Auto) 2.51 K/uL Monocytes # (Auto) 1.72 K/uL Eosinophils # (Auto) 0.02 K/uL Basophils # (Auto) 0.01 K/uL RDW Standard Deviation 50.9 fL RDW Coefficient of Variation 14.3 % Immature Granulocyte % (Auto) 0.4 % Immature Granulocyte # (Auto) 0.07 K/uL Activated Partial Thromboplast Time 76.6 SECONDS Partial Thromboplastin Ratio 2.9 Sodium Level 130 mmol/L Potassium Level 4.4 mmol/L Chloride Level 91 mmol/L Carbon Dioxide Level 32 mmol/L Anion Gap 7.0 mmol/L Blood Urea Nitrogen 23 mg/dl Creatinine 0.69 mg/dl Est Creatinine Clear Calc Drug Dose 128.4 ml/min Estimated GFR () 113.9 Estimated GFR (Non- 98.2 BUN/Creatinine Ratio 34.0 Random Glucose 208 mg/dl Calcium Level 9.2 mg/dl Magnesium Level 2.5 mg/dl Bedside Glucose 200 mg/dl Telemetry reviewed: Atrial fibrillation with a reasonably well-controlled heart rate Assessment and Plan #1. Atrial fibrillation: Although he had atrial fibrillation in the emergency room for about 3 hours, it is not clear that that was related to his presentation with congestive heart failure. It could have been if he had more of it before admission. Since he was virtually asymptomatic during the arrhythmia I don't know if we can use his symptoms as a guide. For the moment I agree with rate control medications (Cardizem) which I would switch to oral. We should add long-term anticoagulation. #2. Congestive heart failure: He does have mild left ventricular dysfunction on echocardiography, cardiac enzymes are negative so this is not an acute event. We may need to consider heart failure medications. His left ventricular systolic function does not seem poor enough to explain heart failure, perhaps he has some diastolic dysfunction as well. This can be exacerbated by the irregularity in atrial fibrillation. Thank you for allowing me to participate in his care.
--- NOTE | 2016-12-02 15:15 | Cardiology Follow-Up ---
Subjective Date of Service: Dec 02, 2016. Pt evaluation today including: conversation w/ patient, physical exam, lab review, review of studies, review of inpatient medication list History of Present Illness This is a very pleasant 66-year-old gentleman who has a history of obesity, hypothyroidism, hypertension but no known cardiac abnormalities. He presented with shortness of breath and cough, was noted to be hypoxic in the emergency room which was probably due to pulmonary edema. He does not have a history of congestive heart failure. He then developed atrial fibrillation while in the emergency room, and therefore was admitted. He was in atrial fibrillation from around 5 PM until around 8 PM on 11/29/2016, often with heart rates of 160-180 bpm. he had a brief recurrence subsequently for just a few minutes. On discussion with him on admission he thought he might of had this before, although he couldn't tell me when or under what circumstances. He recalls having brief palpitations at times, these sound more like premature beats but could be his atrial arrhythmia. He was not aware of the arrhythmia that he can recall while in the emergency room. Today he seems to be feeling reasonably well, he continues to cough but denies shortness of breath. Social History Smoking Status: Current Every Day Smoker History of Alcohol Use: Yes (RARELY) Review of Systems Respiratory: + cough, No shortness of breath Cardiac: No chest pain, No orthopnea, No PND, No edema, No palpitations Medications Cardiovascular: Item Value Date Time Apixaban 5 mg 12/01/16 2100 (Eliquis Tab) BID/PO 12/02/16 0802 Diltiazem HCl 60 mg 12/01/16 2000 (Cardizem Tab) Q6H/PO 12/02/16 1340 Fish Oil 1 gm 11/30/16 0900 ([place]-3 QAM/PO 12/02/16 0802 (Purified Fish Oil) Cap) Atorvastatin 40 mg 11/29/16 2100 Calcium QPM/PO 12/01/169 (Lipitor Tab) Objective Vital Signs Past 12 Hours Date Time Temp Pulse Resp B/P (MAP) Pulse Ox O2 Delivery O2 Flow Rate FiO2 12/02/16 14:35 106 18 95 Nasal Cannula 2.0 12/02/16 12:20 36.8 74 18 109/60 (76) 97 12/02/16 12:10 Nasal Cannula 2.0 12/02/16 08:10 Nasal Cannula 2.0 12/02/16 08:06 36.9 84 18 98/54 (69) 96 12/02/16 07:23 95 18 92 Nasal Cannula 2.0 12/02/16 04:22 36.4 87 19 119/71 (87) 95 BiPAP 50 12/02/16 04:19 BiPAP Last Recorded Weight-Kilograms: 109.000 Intake & Output 8-Hour Column 12/02/16 12/03/16 12/03/16 16:00 00:00 08:00 Intake Total 260 ml Output Total 500 ml Balance -240 ml 24-Hour Column 12/03/16 08:00 Intake Total 260 ml Output Total 500 ml Balance -240 ml Physical Exam Constitutional: General Apperance: overweight Level of Distress: mild distress Lungs: Respiratory effort: good air movement Auscultation: no wheezing Cardiovascular: Heart Auscultation: no murmurs, no rubs, no gallops, irregular rate rhythm Peripheral Pulses: Bruits: none appreciated Extremities: no edema Data Laboratory Results: Last 24 Hours Test 12/01/16 15:59 12/01/16 20:37 12/01/16 23:11 12/02/16 02:37 Bedside Glucose 269 mg/dl 215 mg/dl 168 mg/dl Activated Partial Thromboplast Time 24.3 SECONDS Partial Thromboplastin Ratio 0.9 Test 12/02/16 06:54 12/02/16 06:56 12/02/16 11:21 Bedside Glucose 123 mg/dl 124 mg/dl White Blood Count 12.69 K/uL Red Blood Count 4.32 M/uL Hemoglobin 13.6 g/dL Hematocrit 42.5 % Mean Corpuscular Volume 98.4 fL Mean Corpuscular Hemoglobin 31.5 pg Mean Corpuscular Hemoglobin Concent 32.0 g/dl Platelet Count 251 K/uL Mean Platelet Volume 9.8 fL Neutrophils (%) (Auto) 56.6 % Lymphocytes (%) (Auto) 31.9 % Monocytes (%) (Auto) 10.7 % Eosinophils (%) (Auto) 0.4 % Basophils (%) (Auto) 0.1 % Neutrophils # (Auto) 7.18 K/uL Lymphocytes # (Auto) 4.05 K/uL Monocytes # (Auto) 1.36 K/uL Eosinophils # (Auto) 0.05 K/uL Basophils # (Auto) 0.01 K/uL RDW Standard Deviation 51.6 fL RDW Coefficient of Variation 14.4 % Immature Granulocyte % (Auto) 0.3 % Immature Granulocyte # (Auto) 0.04 K/uL Activated Partial Thromboplast Time 23.6 SECONDS Partial Thromboplastin Ratio 0.9 Sodium Level 137 mmol/L Potassium Level 4.8 mmol/L Chloride Level 95 mmol/L Carbon Dioxide Level 37 mmol/L Anion Gap 5.0 mmol/L Blood Urea Nitrogen 18 mg/dl Creatinine 0.70 mg/dl Est Creatinine Clear Calc Drug Dose 129.0 ml/min Estimated GFR () 113.2 Estimated GFR (Non- 97.7 BUN/Creatinine Ratio 25.6 Random Glucose 122 mg/dl Calcium Level 9.6 mg/dl Magnesium Level 2.5 mg/dl Telemetry reviewed: Atrial fibrillation with a generally well controlled heart rate, quite rapid at times however Assessment and Plan #1. Atrial fibrillation: Although he had atrial fibrillation in the emergency room for about 3 hours, it is not clear that that was related to his presentation with congestive heart failure. It could have been if he had more of it before admission. Since he was virtually asymptomatic during the arrhythmia I don't know if we can use his symptoms as a guide. He is in it most of the time in the hospital therefore I suspect he has a very frequently as an outpatient as well and perhaps a sustained high heart rate has been detrimental to his cardiac function. I think we should try to control his heart rate better , on 60 mg of Cardizem 3 times a day he still has rapid heart rates at times. I' m going to add a low-dose beta armida (which I think he can tolerate from the pulmonary standpoint), since he has left ventricle are dysfunction I'm going to start carvedilol 6.25 mg twice a day. #2. Congestive heart failure: He does have mild left ventricular dysfunction on echocardiography, cardiac enzymes were negative so this is not an acute ischemic event. It may be related to a high heart rate during atrial fibrillation, he seems to have a lot more atrial fibrillation than we appreciated when he first was admitted. We should consider heart failure medications, I'm going to start carvedilol which will also help with heart rate control if his pulmonary status tolerates it we may want to back off on diltiazem and increased carvedilol. His left ventricular systolic function does not seem poor enough to explain acute heart failure, perhaps he has some diastolic dysfunction as well. This can be exacerbated by the irregularity in atrial fibrillation. Thank you for allowing me to participate in his care.
[2016-12-02] MEDS: CARVEDILOL 6.25 MG TAB PO SCH (20:45)
[2016-12-02] MEDS: ATORVASTATIN 40 MG TAB PO SCH (20:46)
[2016-12-03] VITALS (12 sets, daily range): BP systolic 109–151; BP diastolic 60–99; PULSE 84–107; TEMP 36.4–36.9; O2SAT 90–98
[2016-12-03] MEDS: DILTIAZEM HCL 60 MG TAB PO SCH (02:00)
[2016-12-03] MEDS: LEVOTHYROXINE 50 MCG TAB PO SCH (06:28)
[2016-12-03] MEDS: ALBUTEROL 0.083% NEBU SOLN 3 ML VIAL INH SCH ×4 (07:24→18:58)
[2016-12-03 08:19] LABS: BUN/CREATININE RATIO 23.6 (10-20); CALCIUM 9.7 mg/dl (8.5-10.1); CREATININE 0.64 mg/dl (0.60-1.40); POTASSIUM 3.8 mmol/L (3.5-5.1)
[2016-12-03] MEDS: DILTIAZEM HCL 240 MG CAPCR PO SCH (08:20)
[2016-12-03] MEDS: CARVEDILOL 6.25 MG TAB PO SCH (08:20)
[2016-12-03] MEDS: DOXYCYCLINE HYCLATE 100 MG CAP PO SCH ×2 (08:21→20:44)
[2016-12-03] MEDS: CHOLESTYRAMINE LIGHT 4 GM PKT PO SCH ×2 (08:21→20:51)
[2016-12-03] MEDS: DIVALPROEX 500 MG EXTENDED RELEASE TAB PO SCH ×2 (08:22→20:44)
[2016-12-03] MEDS: TAMSULOSIN HCL 0.4 MG CAP PO SCH (08:22)
[2016-12-03] MEDS: FINASTERIDE 5 MG TAB PO SCH (08:23)
[2016-12-03] MEDS: BUDESONIDE/FORMOTEROL FUMARATE 160/4.5 60 PUFFS/INHALER INH SCH ×2 (08:23→20:43)
[2016-12-03] MEDS: APIXABAN 2.5 MG TAB PO SCH ×2 (08:23→20:44)
[2016-12-03] MEDS: OMEGA-3 (PURIFIED FISH OIL) 1 GM CAP PO SCH (08:23)
[2016-12-03] MEDS: TIOTROPIUM BROMIDE 5 PUFF/90 MCG INH INH SCH (08:24)
[2016-12-03] MEDS: INSULIN ASPART 100 UNITS/ML 3 ML PEN SC SCH ×4 (08:27→20:50)
[2016-12-03] MEDS: INSULIN GLARGINE SOLOSTAR 100 UNITS/ML 3 ML PEN SC SCH ×2 (08:28→20:50)
--- NOTE | 2016-12-03 08:50 | Pharmacy Progress Note ---
Glycemic Control Progress Note Date of Service Dec 03, 2016. Scope Glycemic Pharmacist consulted for glycemic control to write orders per [facility] inpatient glycemic control protocol. Objective Accuchecks BSG (last 24hrs): Test 12/02/16 11:21 12/02/16 16:16 12/02/16 20:20 12/03/16 07:20 Bedside Glucose 124 mg/dl (70-99) 143 mg/dl (70-99) 163 mg/dl (70-99) Random Glucose 104 mg/dl (70-99) HbA1c: Test 11/30/16 11:51 Hemoglobin A1c 7.6 % (4.5-5.6) H Recent Pertinent Medications The patient is currently receiving: * Basal insulin: Lantus 15-20 units (15 units if blood sugar 160 mg/ dl or less and 20 units if blood sugar greater than 160 mg/dL) * Correctional Insulin: Novolog Correction per scale ACHS Goal Range: Low 110 mg/dL - High 150 mg/dL Correction Factor: 15 mg/dL/unit * Prandial insulin: Per carb ratio of 1 unit per 5 grams CHO consumed Outpatient Anti-Diabetic Meds no home diabetes medications Assessment & Plan ASSESSMENT: * See progress note from 11/30/16 for more background info, in short: * Pt receiving SQ basal bolus insulin regimen for hyperglycemia secondary to COPD exacerbation on doxycycline, and prednisone 30 mg daily (just decreased from 40 mg daily). * Patient is currently receiving an average of 74 (down from 119 units on ) units of insulin per day * 35 units of basal insulin * 39 units of prandial/correctional insulin * BSGs ranging 123-168 mg/dl over the past 24hrs * Changes needed to insulin regimen: * AM Fasting BSG = 105 mg/dl. This is within goal range for patient based on inpatient targets and co-morbidities. This morning's fasting blood sugar is greatly improved from yesterday's. Will continue sliding scale for this morning and then adjusted to a lower scale this evening to accommodate diminishing effects of steroids. * Post-prandial BSGs are well controlled. Will loosen Novolog parameters for lunch as expecting a decrease in insulin requirements * Total daily dose = ~70 units. This should decrease significantly with steroid tapering. PLAN FOR INPATIENT GLYCEMIC CONTROL: * DECREASING Lantus 10-15 units BID (10 units if blood sugar less than 160 mg/ dL and 15 units if blood sugar 160 mg/dL or greater) * LOOSENING correction factor to 20 mg/dl/unit * LOOSENING carb ratio to 1 unit per 6 grams CHO consumed * Continuing goal range of Low 110 mg/dL - High 150 mg/dL RECOMMENDATIONS FOR DISCHARGE: * Patient HbA1C is slightly elevated for his goal (6.6%-7.5%) so may consider addition of oral agent for patient. Patient may be a candidate for metformin therapy (Serum creatinine okay, no history of lactic acidosis) - can start at 500 mg with meals and titrate upwards to goal of 2000 mg twice daily. Thank you.
--- NOTE | 2016-12-03 09:21 | Cardiology Follow-Up ---
Subjective Date of Service: Dec 03, 2016. Pt evaluation today including: conversation w/ patient, physical exam, lab review, review of studies, review of inpatient medication list History of Present Illness This is a very pleasant 66-year-old gentleman who has a history of obesity, hypothyroidism, hypertension. He presented with shortness of breath and cough, was noted to be hypoxic in the emergency room which was probably due to pulmonary edema. He does not have a history of congestive heart failure. He then developed atrial fibrillation while in the emergency room, and therefore was admitted. He was in atrial fibrillation from around 5 PM until around 8 PM on 11/29/2016, often with heart rates of 160-180 bpm. he had a brief recurrence subsequently for just a few minutes. On discussion with him on admission he thought he might of had this before, although he couldn't tell me when or under what circumstances. He recalls having brief palpitations at times, these sound more like premature beats but could be his atrial arrhythmia. He was not aware of the arrhythmia that he can recall while in the emergency room. He has remained predominantly in atrial fibrillation. I added carvedilol to his regimen yesterday for his mild left ventricular dysfunction as well as heart rate control and he seems to be tolerating it well. Today he seems to be feeling better, he received Lasix yesterday and was taken off of oxygen and today is not complaining of shortness of breath. He is not having palpitations.. Social History Smoking Status: Current Every Day Smoker History of Alcohol Use: Yes (RARELY) Review of Systems Respiratory: + cough, No shortness of breath Cardiac: No chest pain, No orthopnea, No PND, No edema, No palpitations Medications Cardiovascular: Item Value Date Time Diltiazem HCl 240 mg 12/03/16 0900 (Cardizem Cd Cap) QAM/PO 12/03/16 0820 Carvedilol 6.25 mg 12/02/16 2100 (Coreg Tab) BID/PO 12/03/16 0820 Apixaban 5 mg 12/01/16 2100 (Eliquis Tab) BID/PO 12/03/16 0823 Fish Oil 1 gm 11/30/16 0900 (Hansen-3 QAM/PO 12/03/16 0823 (Purified Fish Oil) Cap) Objective Vital Signs Past 12 Hours Date Time Temp Pulse Resp B/P (MAP) Pulse Ox O2 Delivery O2 Flow Rate FiO2 12/03/16 07:45 36.7 89 18 139/60 (86) 97 12/03/16 07:26 100 18 Room Air 12/03/16 04:41 BiPAP 12/03/16 03:57 36.9 84 18 151/99 (116) 92 Room Air 12/03/16 00:19 BiPAP 12/02/16 23:37 36.3 90 20 152/94 (113) 99 BiPAP 12/02/16 22:55 76 96 50 Last Recorded Weight-Kilograms: 113.000 Physical Exam Constitutional: General Apperance: overweight Level of Distress: mild distress Lungs: Respiratory effort: good air movement Auscultation: no wheezing Cardiovascular: Heart Auscultation: no murmurs, no rubs, no gallops, irregular rate rhythm Peripheral Pulses: Bruits: none appreciated Extremities: no edema Data Laboratory Results: Last 24 Hours Test 12/02/16 11:21 12/02/16 16:16 12/02/16 20:20 12/03/16 07:20 Bedside Glucose 124 mg/dl 143 mg/dl 163 mg/dl Sodium Level 136 mmol/L Potassium Level 3.8 mmol/L Chloride Level 97 mmol/L Carbon Dioxide Level 35 mmol/L Anion Gap 4.0 mmol/L Blood Urea Nitrogen 15 mg/dl Creatinine 0.64 mg/dl Est Creatinine Clear Calc Drug Dose 141.0 ml/min Estimated GFR () 117.4 Estimated GFR (Non- 101.3 BUN/Creatinine Ratio 23.6 Random Glucose 104 mg/dl Calcium Level 9.7 mg/dl Telemetry reviewed: Atrial fibrillation with better heart rate control on his current regimen, still a little bit elevated. Assessment and Plan #1. Atrial fibrillation: Although he presented to the emergency room in sinus rhythm he then had atrial fibrillation and has had it the majority of the time since. I suspect he was having a lot of atrial fibrillation at home and it was not recognized. This may have contributed to his presentation with congestive heart failure even though he is in sinus rhythm on arrival. His cardiomyopathy may also be in part due to the atrial fibrillation with a rapid heart rate. #2. Congestive heart failure: He does have mild left ventricular dysfunction on echocardiography, cardiac enzymes were negative so this is not an acute ischemic event. It may be related to a high heart rate during atrial fibrillation, he seems to have a lot more atrial fibrillation than we appreciated when he first was admitted. He has tolerated the carvedilol 6.25 mg twice a day well, his heart rate is still little bit elevated and over the long run it would be better to have him on a higher dose of beta blockade. I'm going to increase it to 12.5 mg twice a day today. Thank you for allowing me to participate in his care.
[2016-12-03] MEDS ORDERED: NURSING VERBAL MED ORDER ONE (11:30)
[2016-12-03] MEDS ORDERED: CARVEDILOL 6.25 MG TAB PO ONE (11:45)
[2016-12-03] MEDS ORDERED: FUROSEMIDE INJ 20 MG in SYRINGE 0 ML IV ONE (12:00)
--- NOTE | 2016-12-03 12:12 | Hospitalist Progress Note ---
Hospitalist Progress Note Date of Service Dec 03, 2016. (Cindy Iraheta ., PA-C) Subjective Pt evaluation today including: conversation w/ patient, physical exam, lab review, review of studies, review of inpatient medication list Voiding: no voiding problems Patient feeling well this AM. Anxious for discharge home to see his dog. Eating and drinking OK. O2 supplement off- no signs of acute distress/SOB, able to speak full sentences w/ no SOB RN completed ambulatory O2- dropped to 88%. Additional IV Lasix today and reassess tomorrow before discharge if O2 supplement required. +cough- improving Patient denies any fever, chills, sweats, lightheadedness, dizziness, vision changes, CP, palpitations, edema, SOB, wheezing, abdominal pain, nausea, vomiting, diarrhea, urinary symptoms, melena, numbness/tingling, weakness, muscle/joint pain, anxiety/depression, active bleeding, or new skin discoloration/changes. (Cindy Iraheta ., PA-C) Medications Current Inpatient Medications Medications (Trade) Dose Ordered Sig/Cesar Route Start Time Stop Time Status Last Admin Dose Admin Ioversol (Optiray 320) 111 ml UD PRN IV 11/29/16 13:30 12/03/16 13:29 Acetaminophen (Tylenol Tab) 650 mg Q4H PRN PO 11/29/16 17:45 12/29/16 17:44 11/30/16 19:26 650 MG Levalbuterol (Xopenex 1.25MG/ 0.5ML Neb) 1.25 mg Q4H PRN INH 11/29/16 17:45 12/29/16 17:44 Morphine Sulfate (MoRPHine SULFATE INJ) 4 mg Q2H PRN IV 11/29/16 17:45 12/13/16 17:44 Atorvastatin Calcium (Lipitor Tab) 40 mg QPM PO 11/29/16 21:00 12/29/16 20:59 12/02/16 20:46 40 MG Divalproex Sodium (Depakote Extended Rel Tab) 1,000 mg QAM PO 11/30/16 09:00 12/30/16 08:59 12/03/16 08:22 1,000 MG Divalproex Sodium (Depakote Extended Rel Tab) 500 mg QPM PO 11/29/16 21:00 12/29/16 20:59 12/02/16 20:46 500 MG Finasteride (Proscar Tab) 5 mg QAM PO 11/30/16 09:00 12/30/16 08:59 12/03/16 08:23 5 MG Fish Oil (Elk-3 (Purified Fish Oil) Cap) 1 gm QAM PO 11/30/16 09:00 12/30/16 08:59 12/03/16 08:23 1 GM Levothyroxine Sodium (Synthroid Tab) 50 mcg DAILYBB PO 11/30/16 06:00 12/30/16 05:59 12/03/16 06:28 50 MCG Tamsulosin HCl (Flomax Cap) 0.4 mg QAM PO 11/30/16 09:00 12/30/16 08:59 12/03/16 08:22 0.4 MG Budesonide/ Formoterol Fumarate (Symbicort 160/ 4.5 Inh) 2 puffs BID INH 11/30/16 09:00 12/30/16 08:59 12/03/16 08:23 2 PUFFS Miscellaneous Information (Consult Glycemic Management Pharmacy) 1 ea DAILY PRN N/A 11/30/16 00:45 12/30/16 00:44 Glucose (Glucose 40% Gel) 15-30 GRAMS 15 GRAMS... UD PRN PO 11/30/16 01:00 12/30/16 00:59 Glucose (Glucose Chew Tab) 4-8 Tablets 4 Tabl... UD PRN PO 11/30/16 01:00 12/30/16 00:59 Dextrose (Dextrose 50% 50ML Syringe) 25-50ML OF 50% DW IV FOR... UD PRN IV 11/30/16 01:00 12/30/16 00:59 Glucagon (Glucagon Inj) 1 mg UD PRN SQ 11/30/16 01:00 12/30/16 00:59 Insulin Aspart (novoLOG ASPART) SLIDING SCALE ACHS SC 11/30/16 06:45 12/30/16 06:44 12/03/16 08:27 8 UNITS Guaifenesin (Robitussin Sugar Free Syrup) 200 mg Q6H PRN PO 11/30/16 11:15 12/30/16 11:14 11/30/16 19:26 200 MG Tiotropium [place] (Spiriva Handihaler Inhaler) 1 puff QAM INH 12/01/16 09:00 12/31/16 08:59 12/03/16 08:24 1 PUFF Albuterol Sulfate (Ventolin 0.083% 2.5MG/3ML Neb) 2.5 mg QIDR INH 11/30/16 12:00 12/30/16 11:59 12/03/16 11:24 2.5 MG Insulin Glargine (Lantus Solostar Pen) SEE PROTOCOL BID SC 12/01/16 21:00 12/31/16 20:59 12/03/16 08:28 15 UNITS Apixaban (Eliquis Tab) 5 mg BID PO 12/01/16 21:00 12/31/16 20:59 12/03/16 08:23 5 MG Doxycycline Hyclate (Vibramycin Cap) 100 mg BID PO 12/01/16 21:00 12/08/16 20:59 12/03/16 08:21 100 MG Cholestyramine Resin (Questran Powder Light) 1 gm BID@1000,2200 PO 12/02/16 10:00 01/01/17 09:59 12/03/16 08:21 1 GM Diltiazem HCl (Cardizem Cd Cap) 240 mg QAM PO 12/03/16 09:00 01/02/17 08:59 12/03/16 08:20 240 MG Prednisone (PredniSONE TAB) 30 mg DAILY PO 12/03/16 09:00 12/07/16 12:00 12/03/16 08:20 30 MG Carvedilol (Coreg Tab) 12.5 mg BID PO 12/03/16 21:00 01/02/17 20:59 Furosemide 20 mg/ Syringe 2 ml @ 4 mls/min NOW ONCE IV 12/03/16 12:00 12/03/16 12:01 (Cindy Iraheta, DYLAN) Objective Vital Signs Date Time Temp Pulse Resp B/P (MAP) Pulse Ox O2 Delivery O2 Flow Rate FiO2 12/03/16 11:43 36.9 101 16 141/63 (89) 98 12/03/16 11:27 103 18 90 Room Air 12/03/16 08:00 Room Air 12/03/16 07:45 36.7 89 18 139/60 (86) 97 12/03/16 07:26 100 18 Room Air 12/03/16 04:41 BiPAP 12/03/16 03:57 36.9 84 18 151/99 (116) 92 Room Air 12/03/16 00:19 BiPAP 12/02/16 23:37 36.3 90 20 152/94 (113) 99 BiPAP 12/02/16 22:55 76 96 50 12/02/16 20:00 91 Room Air 12/02/16 19:36 36.9 108 22 153/74 (100) 91 Room Air 12/02/16 19:01 87 18 94 Nasal Cannula 2.0 12/02/16 16:00 93 Nasal Cannula 2.0 12/02/16 15:43 36.9 102 22 115/75 (88) 93 Nasal Cannula 2.0 12/02/16 14:35 106 18 95 Nasal Cannula 2.0 12/02/16 12:20 36.8 74 18 109/60 (76) 97 12/02/16 12:10 Nasal Cannula 2.0 (Cindy Iraheta, PA-C) Physical Exam General Appearance: no apparent distress, + obese Eyes: normal inspection, PERRL ENT: TMs normal Neck: supple Respiratory/Chest: lungs clear, no respiratory distress, no accessory muscle use, + decreased breath sounds Cardiovascular: + irregularly irregular (rate controlled ) Abdomen: normal bowel sounds, non tender, soft Extremities: + swelling (trace to +1 pitting edema to bilateral lower extremities ), + pertinent finding (chronic venous stasis changes to bilateral lower extremities ) Neurologic/Psychiatric: alert, oriented x 3 Skin: normal color, warm/dry, no rash (Cindy Iraheta, PA-C) Laboratory Results Last 24 Hours Test 12/02/16 16:16 12/02/16 20:20 12/03/16 06:34 12/03/16 07:20 Bedside Glucose 143 mg/dl 163 mg/dl 105 mg/dl Sodium Level 136 mmol/L Potassium Level 3.8 mmol/L Chloride Level 97 mmol/L Carbon Dioxide Level 35 mmol/L Anion Gap 4.0 mmol/L Blood Urea Nitrogen 15 mg/dl Creatinine 0.64 mg/dl Est Creatinine Clear Calc Drug Dose 141.0 ml/min Estimated GFR () 117.4 Estimated GFR (Non- 101.3 BUN/Creatinine Ratio 23.6 Random Glucose 104 mg/dl Calcium Level 9.7 mg/dl Test 12/03/16 11:02 Bedside Glucose 121 mg/dl (Cindy Iraheta, DYLAN) Assessment and Plan 66 y/o M Hx Bipolar disease, Hypothyroidism, morbid obesity, HTN, HPL, BPH, heavy smoker. Pt presents with a chief complaint of progressive SOB and productive cough. He was notably hypoxic on arrival to the ER, exhibiting labored breathing and wheezing on exam. He had not complained of CP, N/V, fevers. He was placed on BIPAP and sent for a CTA which did not show a PE and was consistent with pulmonary edema. He was treated for CHF and also for suspected COPD in the ER. While in the ER he developed rapid AF at a rate of up to 180. Acute hypoxic respiratory failure due to COPD exacerbation- RESOLVED: - O2 protocol (goal 90-92%), wean as tolerated- does not currently wear O2 at home, will likely need at discharge - IV Solu Medrol and transitioned to Prednisone 40mg daily started on 12/01- continue to taper - DuoNeb q4 hrs PRN, Symbicort, Spiriva - IV Rocephin and Zithromax due to purulent thick yellow/brown sputum- IMPROVING - transitioned to Doxycycline 100 mg BID- antibiotic treatment x7 days, last day 12/06 Leukocytosis, ?secondary to IV steroids vs infection- IMPROVING: - Continue to monitor, IV antibiotics as above - Follow CBC REHANA: BiPAP HS- will need outpatient setup at discharge Paroxysmal atrial fibrillation w/ RVR: - Treated w/ IV Diltiazem drip and transitioned to PO medications- per cardiology recommendations Coreg 12.5 mg BID (titrate PRN) and Diltiazem 240 mg QAM - IV heparin gtt- transitioned to Eliquis 5 mg BID on 12/01 - Cardiology following, appreciate recommendations Acute systolic CHF- IMPROVING: - ECHO completed, EF down from 65% in 2015 - Treating w/ IV Lasix- monitoring I&Os and daily weights- negative net balance - Cardiology following Hyperglycemia- HgbA1c at 7.6%: - Pharmacy consulted for glycemic management- recommended Metformin at discharge - para educator consultation- will need One Touch Verio Strips and Delica Lancets for BID testing at discharge Hyponatremia- RESOLVED: Follow PRP Dyslipidemia: Continue Lipitor 40 mg daily Bipolar: Continue Depakote 1000 mg QAM and 500 mg HS Hypothyroid- TSH 2.5 on 11/29/16: Continue Synthroid 50 mcg daily Chronic diarrhea: Continue Questran BID BPH: Continue Flomax 0.4 mg QAM, Proscar 5 mg daily DVT prophylaxis: Eliquis Code Status: LEVEL I, FULL Dispo: From home, lives w/ two tenants- PT/OT and health social work professor consulted - If rate remains controlled throughout afternoon, transfer to med/surg and hopeful discharge tomorrow (Cindy Iraheta ., PA-C) Attending Attestation: Pt seen/examined, chart reviewed, care plan d/w PA Cindy Iraheta. I agree w/ the swift components of her documentation. No complaints today tele - a.fib rates during sleep fine; during awake hours he is about [address] Nguyen this am again cough improved denies dyspnea feels much better VSS gen - nad neck - no obvious JVD sitting upright at 90 degrees heart - irregular, rate <100 lungs - decreased BS bases but no wheeze or rales today ext - trace edema b/l BMP stable A/P: 1. acute hypoxic resp failure - resolved 2. new onset a. fib with RVR - improving with BB, CCB 3. COPD exacerbation (suspected) - resolved; finish abx/steroids 4. acute systolic CHF - another dose of IV lasix today; BMP in am 5. bipolar d/o check sats in RA with walking BIPAP HS tonight d/c tomorrow? Katalina RUBIO MD (Alcides Rubio MD)
[2016-12-03] MEDS: ATORVASTATIN 40 MG TAB PO SCH (20:44)
[2016-12-03] MEDS: CARVEDILOL 12.5 MG TAB PO SCH (20:44)
[2016-12-04 04:21] VITALS: BP 122/81; PULSE 96; TEMP 36.7; O2SAT 93
[2016-12-04] MEDS: LEVOTHYROXINE 50 MCG TAB PO SCH (05:55)
[2016-12-04 07:51] VITALS: PULSE 102; O2SAT 94
[2016-12-04] MEDS: ALBUTEROL 0.083% NEBU SOLN 3 ML VIAL INH SCH (07:51)
[2016-12-04 08:00] VITALS: BP 142/66; PULSE 90; TEMP 37; O2SAT 96
[2016-12-04] MEDS: DOXYCYCLINE HYCLATE 100 MG CAP PO SCH (08:05)
[2016-12-04] MEDS: DILTIAZEM HCL 240 MG CAPCR PO SCH (08:06)
[2016-12-04] MEDS: CARVEDILOL 12.5 MG TAB PO SCH (08:06)
[2016-12-04] MEDS: APIXABAN 2.5 MG TAB PO SCH (08:06)
[2016-12-04] MEDS: TIOTROPIUM BROMIDE 5 PUFF/90 MCG INH INH SCH (08:07)
[2016-12-04] MEDS: BUDESONIDE/FORMOTEROL FUMARATE 160/4.5 60 PUFFS/INHALER INH SCH (08:07)
[2016-12-04] MEDS: TAMSULOSIN HCL 0.4 MG CAP PO SCH (08:08)
[2016-12-04] MEDS: OMEGA-3 (PURIFIED FISH OIL) 1 GM CAP PO SCH (08:08)
[2016-12-04] MEDS: FINASTERIDE 5 MG TAB PO SCH (08:08)
[2016-12-04] MEDS: CHOLESTYRAMINE LIGHT 4 GM PKT PO SCH (08:08)
[2016-12-04] MEDS: DIVALPROEX 500 MG EXTENDED RELEASE TAB PO SCH (08:10)
[2016-12-04] MEDS: INSULIN ASPART 100 UNITS/ML 3 ML PEN SC SCH (08:19)
[2016-12-04] MEDS: INSULIN GLARGINE SOLOSTAR 100 UNITS/ML 3 ML PEN SC SCH (08:20)
[2016-12-04 08:54] LABS: BUN/CREATININE RATIO 23.9 (10-20); CALCIUM 9.4 mg/dl (8.5-10.1); CREATININE 0.67 mg/dl (0.60-1.40); MAGNESIUM 2.2 mg/dl (1.8-2.4); POTASSIUM 3.6 mmol/L (3.5-5.1)
[2016-12-04] MEDS ORDERED: QUETIAPINE FUMARATE 25 MG TAB PO PRN (09:00)
[2016-12-04] MEDS ORDERED: DXY100 PO (09:52)
[2016-12-04] MEDS ORDERED: GLC/500 PO (09:52)
[2016-12-04] MEDS ORDERED: ELQ25 PO (09:52)
[2016-12-04] MEDS ORDERED: CRDCD240 PO (09:52)
[2016-12-04] MEDS ORDERED: SYMIN INH (09:52)
[2016-12-04] MEDS ORDERED: CRG125 PO (09:52)
[2016-12-04] MEDS ORDERED: SPRIN INH (09:52)
[2016-12-04] MEDS ORDERED: PRED10TA PO (09:52)
--- NOTE | 2016-12-04 10:21 | Discharge Summary ---
Discharge Summary Date of Service Dec 04, 2016. (Cindy Iraheta PA-C) Discharge Summary Admission Date: Nov 29, 2016 at 17:46 Discharge Date: Dec 04, 2016 Discharge Disposition: Home with services Principal Diagnosis: Acute hypoxic respiratory failure due to COPD exacerbation Problems/Secondary Diagnoses: Acute hypoxic respiratory failure due to COPD exacerbation Leukocytosis REHANA Paroxysmal atrial fibrillation w/ RVR Acute systolic CHF T2DM Hyponatremia Dyslipidemia Bipolar Hypothyroid Chronic diarrhea BPH Immunizations: Have You Had Influenza Vaccine: Yes History of Tetanus Vaccine?: Yes History of Pneumococcal: Yes History of Hepatitis B Vaccine: Unknown Procedures: (CHEST FOR PE) ANGIO WITH CT DOSE: 667.82 mGy.cm HISTORY: Chest pain dyspnea TECHNIQUE: Multiaxial CT images of the chest were performed following the intravenous administration of contrast to evaluate the pulmonary arteries. Maximal intensity projection images were also obtained. A dose lowering technique was utilized adhering to the principles of ALARA. COMPARISON STUDY: 06/11/2013 FINDINGS: No evidence of pulmonary embolus. Prominent bronchovascular markings throughout both hemithoraces. Several scattered areas of subsegmental atelectatic change. Mild fatty infiltration of liver. IMPRESSION: 1. Study is negative for pulmonary embolus . 2. findings of congestive failure with scattered areas of subsegmental atelectasis. The above report was generated using voice recognition software. It may contain grammatical, syntax or spelling errors. Electronically signed by: Mikal Hill M.D. 11/29/2016 4:23 PM Dictated Date/Time: 11/29/2016 4:20 PM The status of this report is Signed. Draft = Not yet reviewed or approved by Radiologist. Signed = Reviewed and approved by Radiologist. CHEST ONE VIEW PORTABLE CLINICAL HISTORY: EVALUATE RESPIRATORY DISTRESS. DYSPNEA dyspnea COMPARISON STUDY: 09/01/2014 FINDINGS: Increased cardiac size and pulmonary vasculature compared to the prior study. Diaphragms smooth. Very slight body of lateral gastric angle. IMPRESSION: Congestive heart failure The above report was generated using voice recognition software. It may contain grammatical, syntax or spelling errors. Electronically signed by: Mikal Hill M.D. 11/29/2016 2:01 PM Dictated Date/Time: 11/29/2016 2:01 PM The status of this report is Signed. Draft = Not yet reviewed or approved by Radiologist. Signed = Reviewed and approved by Radiologist ECHOCARDIOGRAM: Interpretation Summary n Conclusions -- n Technically limited study despite use of Definity ultrasound contrast. n 1. Normal LV size. Mild concentric LVH. n 2. Mild global LV dysfunction. LVEF 40-45%. n 3. RV not well visualized. RV appears borderline enlarged. RV function normal. n 4. No significant valvular pathology. n 5. Dilated IVC. Est RA 15 mmHg. n 6. No prior studies for comparison. Procedure Details A complete two-dimensional transthoracic echocardiogram was performed (2D, M -mode, Doppler and color flow Doppler). The study was technically difficult. There were technical limitations due to patient'sbody habitus A contrast injection of Definity was performed to improve assessment of LV function. Contrast was injected into an intravenous site in the right arm. One vial of Definity ultrasound contrast was diluted in normal saline to a total volume of 10 ml. A total of '5' ml of solution was administered during imaging. Lot # [id number] of Definity utilized for procedure. Expiration date . The attending nurse who injected the contrast agent was MURPHY Dominique. Left Ventricle * The left ventricle is grossly normal size. * There is mild concentric left ventricular hypertrophy. * Ejection Fraction = 40-45%. * There is mild global hypokinesis of the left ventricle. Right Ventricle * The right ventricle is not well visualized. * Appears mildly dilated * The right ventricular systolic function is normal as assessed by tricuspid annular plane systolic excursion (TAPSE) (normal >1.5 cm). Atria * The left atrial size is normal. * The right atrium is mildly dilated. * No ASD detected; PFO is not assessed. Mitral Valve * The mitral valve is grossly normal. * There is mild mitral annular calcification. * There is no mitral valve stenosis. * Significant mitral regurgitation is absent. Tricuspid Valve * The tricuspid valve is not well visualized. * There is trace tricuspid regurgitation. Aortic Valve * The aortic valve is not well visualized. * No hemodynamically significant valvular aortic stenosis. * There is no significant aortic regurgitation. Pulmonic Valve * The pulmonary valve is inadequately visualized, but the Doppler data is adequate for interpretation. * There is no pulmonic valvular stenosis. * There is no significant pulmonary regurgitation. Great Vessels * The aortic root and proximal ascending aorta are normal sized. Pericardium/Pleural * There is no pericardial effusion. Great Vessels * Dilated inferior vena cava with reduced collapsability with sniff indicates an elevated right atrial pressure of 15 mmHg MMode 2D Measurements and Calculations Consultations: Critical Care Cardiology (Cindy Iraheta, DYLAN) Medication Reconciliation New Medications: Carvedilol (Coreg) 25 Mg Tab 1 TAB PO BID for 30 Days, #60 TAB 5 Refills Furosemide (Lasix) 20 Mg Tab 1 TAB PO DAILY for 30 Days, #30 TAB 5 Refills Metformin Hcl (Glucophage) 500 Mg Tab 500 MG PO BID for 30 Days, #60 TAB Potassium Chloride (Potassium Chloride Er) 10 Meq Tab 2 TAB PO DAILY for 30 Days, #60 TAB 5 Refills Prednisone Tab (Prednisone) 10 Mg Tab 10 MG PO UD for 6 Days, #7 TAB 20 mg PO x2 days, 10 mg x2 days, 5 mg x2 days Apixaban (Eliquis) 2.5 Mg Tab 5 MG PO BID for 30 Days, #120 TAB Budesonide/Formoterol Fumarate (Symbicort 160-4.5 Mcg/Act) 60 Puffs/Inhaler Aero 2 PUFFS INH BID, #1 INHALER Doxycycline Hyclate (Doxycycline Hyclate) 100 Mg Cap 100 MG PO BID for 3 Days, #6 CAP Tiotropium [place] (Spiriva Handihaler) 5 Puff/90 Mcg Aerp 1 PUFF INH QAM, #1 INHALER Continued Medications: Acetaminophen (Tylenol Extra Strength) 500 Mg Tab 500-1000 MG PO Q6H PRN for Pain Atorvastatin (Atorvastatin Calcium) 40 Mg Tab 40 MG PO QPM B-Complex W/ Folic Acid (Super B Complex Maxi) 1 Tab Tab 1 TAB PO QAM Cholecalciferol (Vitamin D3) 1,000 Unit Cap 1000 UNITS PO DAILY Cholestyramine (Cholestyramine) 4 Gm/Dose Pow [address] CONTENTS OF 1 LEVEL SCOOPFUL IN GLASS AND ADD 6 OZ OF WATER. STIR AND DRINK TWICE A DAY. Divalproex Sodium (Depakote Er) 500 Mg Tab 500 MG PO QPM, TAB Divalproex Sodium (Depakote Er) 500 Mg Tab 1000 MG PO QAM, TAB Finasteride (Finasteride) 5 Mg Tab 5 MG PO QAM Fish Oil ([place]-3) 1 Ea Cap 1000 MG PO QAM Garlic (Garlic) 500 Mg Tab 500 MG PO DAILY Eaegayxkzft-[id number]-Ht Cho (Glucosamine Chondroitin &) 1 Tab Tab 1 TAB PO QAM Levocarnitine L-Tartrate (L-Carnitine) 500 Mg Cap 1000 MG PO TID Levothyroxine Sodium (Levothyroxine Sodium) 50 Mcg Tab 50 MCG PO QAM Misc Natural Products (Osteo Bi-Flex Advanced Do) 1 Tab Tab 1 TAB PO QAM Multivitamin (Multivitamin) Tab 1 TAB PO QAM, TAB Tamsulosin Hcl (Flomax) 0.4 Mg Cap 0.4 MG PO QAM, CAP Discontinued Medications: Hydrochlorothiazide (Hydrochlorothiazide) 12.5 Mg Tab 1 TAB PO QAM for 90 Days, #90 TAB 3 Refills Referrals At Discharge Follow up Referrals: [employer] Referral - Within 2 Weeks with Jeffy Nguyen M.D. Family Practice Referral - Within 1 Week with Helen Lion M.D. Discharge Exam Review of Systems: Constitutional: No fever, No chills, No sweats, No weakness, No fatigue Respiratory: + cough, No sputum, No wheezing, No shortness of breath, No dyspnea on exertion, No hemoptysis Cardiovascular: No chest pain, No edema, No palpitations Abdomen: + diarrhea, No pain, No nausea, No vomiting, No constipation, No GI bleeding Musculoskeletal: No joint pain, No muscle pain, No swelling, No calf pain Genitourinary - Male: No hematuria, No dysuria Neurologic: No weakness, No numbness/tingling Psychiatric: No depression symptoms, No anxiety Hematologic / Lymphatic: No abnormal bleeding/bruising Integumentary: No rash, No itch, No new/changing skin lesions Physical Exam: General Appearance: no apparent distress, + obese Eyes: normal inspection, PERRL ENT: hearing grossly normal Neck: supple Respiratory/Chest: lungs clear, no respiratory distress, no accessory muscle use, + decreased breath sounds Cardiovascular: regular rate, rhythm Abdomen / GI: normal bowel sounds, non tender, soft, + pertinent finding ( chronic venous stasis changes to bilateral lower extremities ) Extremities: no calf tenderness, no pedal edema Neurologic/Psychiatric: alert, oriented x 3 Skin: normal color, warm/dry, no rash (Cindy Iraheta, PAAnthonyC) Hospital Course Admission H&P: 66 y/o M Hx Bipolar disease, Hypothyroidism, morbid obesity, HTN, HPL, BPH, heavy smoker. Pt presents with a chief complaint of progressive SOB and productive cough. He was notably hypoxic on arrival to the ER, exhibiting labored breathing and wheezing on exam. He had not complained of CP, N/V, fevers. He was placed on BIPAP and sent for a CTA which did not show a PE and was consistent with pulmonary edema. He was treated for CHF and also for suspected COPD in the ER. While in the ER he developed rapid AF at a rate of up to 180. Physical Exam Vital Signs Date Time Temp Pulse Resp B/P (MAP) Pulse Ox O2 Delivery O2 Flow Rate FiO2 11/29/16 17:16 159 91 100 11/29/16 17:16 162 29 169/106 95 BiPAP 11/29/16 16:50 111 27 191/115 90 Nebulizer 11/29/16 15:07 95 22 163/103 95 Nasal Cannula 4.0 11/29/16 14:00 94 Nasal Cannula 4.0 11/29/16 14:00 94 Nasal Cannula 4.0 11/29/16 13:29 98 11/29/16 12:58 36.7 104 26 173/88 90 Room Air General Appearance: + mild distress, + obese Head: normocephalic, atraumatic Eyes: normal inspection ENT: normal ENT inspection, pharynx normal Neck: supple, + pertinent finding (JVD exam limited by habitus) Respiratory/Chest: chest non-tender, lungs clear, no accessory muscle use Cardiovascular: no murmur, normal peripheral pulses, + tachycardia, + irregularly irregular Abdomen/GI: normal bowel sounds, non tender, + distended Back: normal inspection, no CVA tenderness Extremities/Musculoskelatal: + pertinent finding (Venous stasis changes with mild BL edema) Skin: + pertinent finding (Hyperpigmentation consistent with venous stasis - LEs) Hospital Course: Acute hypoxic respiratory failure due to COPD exacerbation- RESOLVED: - O2 protocol (goal 90-92%), wean as tolerated- off O2 prior to discharge - IV Solu Medrol and transitioned to Prednisone 40mg daily started on 12/01- taper at discharge - DuoNeb q4 hrs PRN, Symbicort, Spiriva - IV Rocephin and Zithromax due to purulent thick yellow/brown sputum- IMPROVING - transitioned to Doxycycline 100 mg BID- antibiotic treatment x7 days, last day 12/06 Leukocytosis, ?secondary to IV steroids vs infection- IMPROVING: - Continue to monitor, IV antibiotics as above - Follow CBC REHANA: BiPAP HS- will need outpatient setup at discharge Paroxysmal atrial fibrillation w/ RVR: - Treated w/ IV Diltiazem drip and transitioned to PO medications- per cardiology recommendations Coreg 12.5 mg BID (titrate PRN) and Diltiazem 240 mg QAM -- Due to converting to NSR prior to discharge, cardiology recommends Coreg 25 mg BID and stopping Diltiazem at discharge - IV heparin gtt- transitioned to Eliquis 5 mg BID on 12/01 - Cardiology following, appreciate recommendations Acute systolic CHF- IMPROVING: - ECHO completed, EF down from 65% in 2015 - Treating w/ IV Lasix- monitoring I&Os and daily weights- negative net balance - placed on 20 mg Lasix daily and 20 mEq KCL supplement - Cardiology following - Discontinue HCTZ 12.5 mg daily at discharge Hyperglycemia- HgbA1c at 7.6%: - Pharmacy consulted for glycemic management- Metformin 500 mg BID at discharge - unit educator consultation- glucose monitor, strips, and lancets for BID BSG checks- discussed w/ patient about keeping a log for PCP follow-up Hyponatremia- RESOLVED: Follow PRP Dyslipidemia: Continue Lipitor 40 mg daily Bipolar: Continue Depakote 1000 mg QAM and 500 mg HS Hypothyroid- TSH 2.5 on 11/29/16: Continue Synthroid 50 mcg daily Chronic diarrhea: Continue Questran BID BPH: Continue Flomax 0.4 mg QAM, Proscar 5 mg daily DVT prophylaxis: Eliquis Code Status: LEVEL I, FULL Dispo: Discharge to home w/ [facility] Total Time Spent: Greater than 30 minutes This includes examination of the patient, discharge planning, medication reconciliation, and communication with other providers. (Cindy Iraheta ., PA-C) Attending Discharge Note & Attestation: Pt seen/examined, chart reviewed, and discharge care plan d/w CAMILLE Iraheta on day of discharge. I agree w/ the swift components of her discharge summary. 66yo male with history of COPD who presented with acute hypoxic respiratory failure due to COPD exacerbation. He also had evidence of acute CHF at time of presentation. While awaiting admission in the ER he developed rapid a. fib. He was asymptomatic from the a. fib. He was treated in the customary fashion for his COPD with steroids, antibiotics & nebs. His acute CHF was treated with beta armida and diuretics. A. fib was managed with cardizem infusion ultimately transitioning to beta armida. Echo during his stay demonstrated mild systolic CHF with EF 40-45%. Records from 2016 indicate that his EF then was 65%. Perhaps his LV dysfunction is due to tachyarrhythmia from the a. fib. O2 was successfully weaned off during his stay. At discharge he will complete a course of antibiotics and steroids. Eliquis has been initiated for anticoagulation due to his a. fib. His a. fib rate control and CHF will be managed with coreg twice daily. Of note - he converted to NSR just prior to discharge home. Discharge exam - gen - nad neck - no JVD heart - RRR, s1, s2 lungs - CTA b/l - wheezes & rales resolved abd - soft, NT ext - trace edema b/l psych - no psychosis Alcides Rubio MD (Alcides Rubio MD) Discharge Instructions Please refer to the electronic Patient Visit Report (Discharge Instructions) for additional information. (Cindy Iraheta, PA-C) Follow-Up Please follow-up with your PCP within 5-7 days Please follow-up/keep all of your subspecialty appointments (Cindy Iraheta, CAMILLE-C) 1. Dr. Lion on Dec 11 at 2:[address] Nguyen on Dec 25 at 3:15 PM (Alcides Rubio MD) Additional Copies To Helen Lion M.D.; Jeffy Nguyen M.D.
--- NOTE | 2016-12-04 10:22 | Discharge Instructions ---
Discharge Instructions Date of Service Dec 04, 2016. Admission Reason for Admission: CHF Discharge Discharge Diagnosis / Problem: Acute respiratory failure secondary to COPD exacerbation Discharge Goals Goal(s): Decrease discomfort, Improve function, Improve disease control, Learn about illness, Diagnostic testing, Therapeutic intervention, Prevent Disease Progression Activity Recommendations Activity Limitations: resume your previous activity . Instructions / Follow-Up Instructions / Follow-Up You were admitted to [facility] due to progressive shortness of breath and a productive cough. During your stay, you were treated for: 1. Atrial fibrillation (a.fib) with rapid ventricular response- this is when your heart beats irregularly with a fast heart rate. New medications: Coreg 25 mg by mouth twice per day- this is to control your heart rate Eliquis 5 mg by mouth twice per day- a.fib puts you at risk for a stroke. You have been started on a blood thinner to prevent this from occurring 2. Chronic obstructive pulmonary disease. New medications: Prednisone 20 mg by mouth on 12/05 and 12/06, 10 mg by mouth on 12/07 and 12/08, and 5 mg by mouth on 12/09 and 12/10 Doxycycline 100 mg by mouth until prescription is complete- this is an antibiotic Spiriva 1 puff every morning and Symbicort 2 puffs twice per day- these are inhalers to help control COPD STOP SMOKING! 3. Congestive heart failure- filling up with too much fluid. New Medications: Lasix 20 mg by mouth once per day- this is a "water pill" to help prevent you from retaining fluid 20 meQ potassium supplement once per day- when taking Lasix, it is common for your potassium to become low STOP HCTZ 12.5 mg daily 4. Obstructive sleep apnea. You will need to follow-up with your PCP to discuss getting a BiPAP setup for use at home 5. Type 2 Diabetes Mellitus New Medications: Metformin 500 mg by mouth twice per day You were given a glucose monitor, strips, and lancets to check your blood glucose twice a day- we discussed keeping a log to take to your next PCP appointment. This will help your PCP determine if Metformin needs increased. One Touch Verio Strips and Delica Lancets can be bought [id number] at [employer]. It is important you follow the recommendations given to you by the diabetic counselor regarding your diet to help control your sugars. Continue all other regular home medications FOLLOW-UPS: Please follow-up with your PCP within 5-7 days- A referral has been placed; if you do not hear of an appointment in the next 24 hours, please call the office to confirm appointment. Please follow-up with cardiology within 2 weeks- A referral has been placed; if you do not hear of an appointment in the next 24 hours, please call the office to confirm appointment. Please follow-up/keep all of your subspecialty appointments Call 911 and go to the Emergency Room if: * You have tightness or pain in your chest that does not go away with rest or Nitroglycerin * You are very short of breath even with rest Call your doctor if any of the following symptoms or problems start or get worse: * Shortness of breath or difficulty breathing * Wake up at night short of breath * Chest pain * Cough * Swelling of your hands, fee, or legs * More fatigued or tired with your normal activity * Palpitations - sudden fast heart beats WEIGHT * Weigh yourself every morning after using the bathroom. * Use the same scale. * Wear the same amount of clothing. * Write your weight down on your chart. * Call your doctor if you gain more than 2-3 pounds in 1-2 days. MEDICATIONS * Use this discharge instruction sheet for instructions. * Take your medications at the time your doctor ordered. * Do not skip a dose of your medicines. * If you miss a dose of medicine, take as soon as possible, but DO NOT DOUBLE A DOSE. * Read your medicine information when you get home. * Know all of the side effects of your medicine. * Call your doctor's office if you have any side effects. * Be sure all of your doctors know what medicine and herbs you take (including cold, flu, and herbal medicine). * Pain Medicine: If you do not get relief from your pain, please call your doctor for help. Take the following with you to your follow-up doctor appointments: * Weight Chart * Medication List * List of questions Do not drink excessive alcohol, beer or wine. Current Hospital Diet Patient's current hospital diet: AHA Diet (Heart Healthy), Low Sodium Diet (2gm Na), Diabetes Type 2 Diet Discharge Diet Recommended Diet: Diabetes Type 2 Diet Pending Studies Studies pending at discharge: no Laboratory Results Hemoglobin A1c Test 11/30/16 11:51 Range/Units Estimated Average Glucose 171 mg/dl Hemoglobin A1c 7.6 H 4.5-5.6 % Lipid Panel Test 11/30/16 05:43 Range/Units Triglycerides Level 146 0-150 mg/dl Cholesterol Level 134 0-200 mg/dl HDL Cholesterol 40 mg/dl Cholesterol/HDL Ratio 3.4 LDL Cholesterol, Calculated 65 mg/dl Medical Emergencies . Who to Call and When: Medical Emergencies: If at any time you feel your situation is an emergency, please call 911 immediately. . Non-Emergent Contact Non-Emergency issues call your: Primary Care Provider Call Non-Emergent contact if: you have a fever, your pain is not controlled, your pain is worsening, your pain is unusual for you, your pain is concerning you, you have any medication questions . . "Provider Documentation" section prepared by Cindy Iraheta. Attending Attestation: Pt seen/examined, and discharge care plan d/w CAMILLE Iraheta. I agree with her discharge instructions as outlined. Alcides Rubio MD . VTE Core Measure Inpt VTE Proph given/why not?: Other Anticoagulation
[2016-12-04 10:42] VITALS: BP 142/66; PULSE 90; TEMP 37; O2SAT 96
[2016-12-04] MEDS ORDERED: POTA-74 PO (10:51)
[2016-12-04] MEDS ORDERED: FURO-85 PO (10:51)
[2016-12-04] MEDS ORDERED: CARV25TA2 PO (10:51)
--- NOTE | 2016-12-04 13:46 | Cardiology Follow-Up ---
Subjective Date of Service: Dec 04, 2016. Pt evaluation today including: conversation w/ patient, physical exam, lab review, review of studies, review of inpatient medication list, conversation w/ attending History of Present Illness This is a very pleasant 66-year-old gentleman who has a history of obesity, hypothyroidism, hypertension. He presented with shortness of breath and cough, was noted to be hypoxic in the emergency room which was probably due to pulmonary edema. He does not have a history of congestive heart failure. He then developed atrial fibrillation while in the emergency room, and therefore was admitted. He was in atrial fibrillation from around 5 PM until around 8 PM on 11/29/2016, often with heart rates of 160-180 bpm. he had a brief recurrence subsequently for just a few minutes. On discussion with him on admission he thought he might of had this before, although he couldn't tell me when or under what circumstances. He recalls having brief palpitations at times, these sound more like premature beats but could be his atrial arrhythmia. He was not aware of the arrhythmia that he can recall while in the emergency room. He has remained predominantly in atrial fibrillation. I added carvedilol for his mild left ventricular dysfunction as well as heart rate control and he seems to be tolerating it well. Today he denies shortness of breath, is no longer coughing and feels like he should go home. Social History Smoking Status: Current Every Day Smoker History of Alcohol Use: Yes (RARELY) Review of Systems Respiratory: No cough, No shortness of breath Cardiac: No chest pain, No orthopnea, No PND, No edema, No palpitations Objective Vital Signs Past 12 Hours Date Time Temp Pulse Resp B/P (MAP) Pulse Ox O2 Delivery O2 Flow Rate FiO2 12/04/16 10:42 37.0 90 18 96 Room Air 12/04/16 08:00 37.0 90 18 142/66 (91) 96 12/04/16 08:00 Room Air 12/04/16 07:51 102 18 94 Room Air 12/04/16 04:21 36.7 96 22 122/81 (95) 93 Room Air 12/04/16 04:00 Room Air Last Recorded Weight-Kilograms: 110.400 Physical Exam Constitutional: General Apperance: overweight Level of Distress: NAD Lungs: Respiratory effort: good air movement Auscultation: no wheezing Cardiovascular: Heart Auscultation: RRR, no murmurs, no rubs, no gallops Peripheral Pulses: Bruits: none appreciated Extremities: no edema Data Laboratory Results: Last 24 Hours Test 12/03/16 16:18 12/03/16 20:18 12/04/16 06:53 12/04/16 07:44 Bedside Glucose 117 mg/dl 304 mg/dl 156 mg/dl Sodium Level 134 mmol/L Potassium Level 3.6 mmol/L Chloride Level 95 mmol/L Carbon Dioxide Level 34 mmol/L Anion Gap 5.0 mmol/L Blood Urea Nitrogen 16 mg/dl Creatinine 0.67 mg/dl Est Creatinine Clear Calc Drug Dose 133.1 ml/min Estimated GFR () 115.2 Estimated GFR (Non- 99.4 BUN/Creatinine Ratio 23.9 Random Glucose 116 mg/dl Calcium Level 9.4 mg/dl Magnesium Level 2.2 mg/dl Telemetry reviewed: Conversion from atrial fibrillation to sinus rhythm during the night. Now sinus rhythm. Assessment and Plan #1. Atrial fibrillation: Although he presented to the emergency room in sinus rhythm he then had atrial fibrillation and has had it the majority of the time since. He is now back in sinus rhythm and did not have bradycardia on his current medical regimen, however before converting on his current medical regimen his rate during atrial fibrillation was also well-controlled. I suspect he was having a lot of atrial fibrillation at home and it was not recognized. This may have contributed to his presentation with congestive heart failure even though he is in sinus rhythm on arrival. His cardiomyopathy may also be in part due to the atrial fibrillation with a rapid heart rate. At this point I think would be reasonable to switch him over to carvedilol alone, 25 mg twice a day and discontinue the diltiazem. #2. Congestive heart failure: He does have mild left ventricular dysfunction on echocardiography, cardiac enzymes were negative so this is not an acute ischemic event. It may be related to a high heart rate during atrial fibrillation, he seems to have a lot more atrial fibrillation than we appreciated when he first was admitted. I would like to use carvedilol 25 mg twice a day alone and see if that works to control his arrhythmia as well as his left ventricular function. We will follow this as an outpatient. I will make arrangements for him to be seen in the office for follow-up of his arrhythmia and cardiomyopathy. Thank you for allowing me to participate in his care.
== END 2016-12-04 11:20 | disposition home health service (06) | DRG 291 ==
LOC: C.EDB 12:54 → C.MSICU 17:46 → ENRESERV 18:08 → C.2T 11-30 22:58
PROVIDERS: ADMIT Internal Medicine; ATTEND Internal Medicine
DX: I50.21 Acute systolic (congestive) heart failure (principal); J96.21 Acute and chronic respiratory failure with hypoxia; J44.1 Chronic obstructive pulmonary disease with (acute) exacerbation; E87.1 Hypo-osmolality and hyponatremia; J98.11 Atelectasis; I50.1 Left ventricular failure, unspecified; T17.990A Other foreign object in respiratory tract, part unspecified in causing asphyxiation, initial encounter; X58.XXXA Exposure to other specified factors, initial encounter; D72.829 Elevated white blood cell count, unspecified; T38.0X5A Adverse effect of glucocorticoids and synthetic analogues, initial encounter; Y92.239 Unspecified place in hospital as the place of occurrence of the external cause; E11.65 Type 2 diabetes mellitus with hyperglycemia; I48.0 Paroxysmal atrial fibrillation; I11.0 Hypertensive heart disease with heart failure; E78.5 Hyperlipidemia, unspecified; E03.9 Hypothyroidism, unspecified; K52.9 Noninfective gastroenteritis and colitis, unspecified; I87.8 Other specified disorders of veins; N40.0 Benign prostatic hyperplasia without lower urinary tract symptoms; G47.33 Obstructive sleep apnea (adult) (pediatric); F17.210 Nicotine dependence, cigarettes, uncomplicated; F31.9 Bipolar disorder, unspecified; E66.01 Morbid (severe) obesity due to excess calories; Z68.36 Body mass index [BMI] 36.0-36.9, adult; Z96.649 Presence of unspecified artificial hip joint; Z82.49 Family history of ischemic heart disease and other diseases of the circulatory system; Z80.1 Family history of malignant neoplasm of trachea, bronchus and lung; Z79.899 Other long term (current) drug therapy

== ENCOUNTER → 2016-12-23 | Outpatient (CLI) | payer BC, OTHER ==
[~2016-12-23] MED LIST changes: +CARV25TA2 PO; +CHOL1CAP57 PO; +DXY100 PO; +ELQ25 PO; +FURO-85 PO; +GARL500T PO; +GLC/500 PO; -HYDR12.55 PO; +POTA-74 PO; +SPRIN INH; +SYMIN INH
--- NOTE | 2016-12-23 15:01 | DIAGNOSTIC IMAGING REPORT ---
CHEST 2 VIEWS ROUTINE HISTORY: Short of breath. HEART FAILURE COMPARISON: Chest 11/29/2016. FINDINGS: There is interstitial vascular thickening consistent with pulmonary edema. Small bilateral pleural effusions and cardiomegaly. No pneumothorax. Old, healed right rib fractures. IMPRESSION: Mild pulmonary edema and small bilateral pleural effusions. This is similar to the prior study. Electronically signed by: Lalo Romeo M.D. 12/23/2016 3:00 PM Dictated Date/Time: 12/23/2016 2:58 PM
== END | disposition home or self-care (01) ==
LOC: C.RAD1850 14:21
PROVIDERS: ATTEND Family Medicine
DX: I50.9 Heart failure, unspecified (principal); R06.02 Shortness of breath; J90 Pleural effusion, not elsewhere classified

== ENCOUNTER → 2016-12-31 | Outpatient (CLI) | payer BC ==
[2016-12-31 18:49] LABS: BLOOD UREA NITROGEN 10 mg/dl (7-18); BUN/CREATININE RATIO 14.6 (10-20); CALCIUM 9.2 mg/dl (8.5-10.1); CARBON DIOXIDE 30 mmol/L (21-32); CHLORIDE 102 mmol/L (98-107); CREATININE 0.67 mg/dl (0.60-1.40); GLUCOSE 166 mg/dl (70-99); POTASSIUM 3.9 mmol/L (3.5-5.1); SODIUM 140 mmol/L (136-145)
== END | disposition home or self-care (01) ==
LOC: C.LAB1850 16:59
PROVIDERS: ATTEND Family Medicine
DX: I50.9 Heart failure, unspecified (principal)

== ENCOUNTER → 2017-01-12 | Outpatient (CLI) | payer BC ==
[~2017-01-12] MED LIST changes: -GLC/500 PO
--- NOTE | 2017-01-12 12:18 | DIAGNOSTIC IMAGING REPORT ---
CHEST 2 VIEWS ROUTINE CLINICAL HISTORY: CHRONIC CHF dyspnea COMPARISON STUDY: 12/23/2016 FINDINGS: Findings of congestive heart failure mildly improved. Persistent mild cardiomegaly. Pulmonary vasculature is diminished in prominence. Small right pleural effusion minimally increased in prominence. IMPRESSION: Congestive failure slightly improved radiographically from the prior exam. The above report was generated using voice recognition software. It may contain grammatical, syntax or spelling errors. Electronically signed by: Mikal Hill M.D. 01/12/2017 12:17 PM Dictated Date/Time: 01/12/2017 12:07 PM
== END | disposition home or self-care (01) ==
LOC: C.RAD1850 11:18
PROVIDERS: ATTEND Family Medicine
DX: I50.9 Heart failure, unspecified (principal)

== ENCOUNTER → 2017-02-18 | Outpatient (CLI) | payer BC ==
--- NOTE | 2017-02-18 13:45 | DIAGNOSTIC IMAGING REPORT ---
CT LUNG SCREENING, LOW DOSE WITH COMPUTER-AIDED DETECTION (CAD) CLINICAL HISTORY: Smoking history. Lung cancer screening. COMPARISON STUDY: Chest CT dated 11/29/2016 and 06/11/2013. CT DOSE: 72.52 mGycm TECHNIQUE: Low-dose helical CT was acquired without intravenous contrast from lung apices to bases and reconstructed at 2.5 mm every 2 mm. CAD was utilized for this study. A dose lowering technique was utilized adhering to the principles of ALARA. The Examination is degraded by large body habitus, and by streak artifact from the body wall abutting the CT gantry. FINDINGS: Thyroid: Imaged portions of the thyroid gland are normal in appearance. Thoracic aorta: There is atherosclerotic calcification of the thoracic aorta, with is normal in caliber and demonstrates standard 3 vessel arch anatomy. Heart: The heart is enlarged and without pericardial effusion. Lungs and pleural spaces: There are foci of bilateral scarring versus atelectasis. A trace right pleural effusion is identified. The trachea is clear. Secretions are noted in the left mainstem bronchus. There is a 3 mm right lower lobe pulmonary nodule seen on image #145. This is unchanged from 2014 and of doubtful significance. Mediastinum: Mildly enlarged mediastinal lymph nodes are identified. A precarinal node measures 1.6 cm in short axis as seen on image #97. Lizet: Not well assessed without IV contrast. Axilla: Clear. Upper abdomen: The upper abdominal viscera is not well assessed due to streak artifact. There is a tiny hiatal hernia. The liver appears enlarged and steatotic. Skeletal structures: The skeletal structures are osteopenic. There are healed right-sided rib fractures. Degenerative change is seen throughout the thoracic spine. There are no lytic or blastic osseous lesions. IMPRESSION: 1. Significantly streak artifact compromised examination. 2. No concerning pulmonary lesion is identified. 3. Cardiomegaly. 4. A trace right pleural effusion noted. 5. Mildly enlarged mediastinal lymph nodes are nonspecific and unchanged from recent prior studies. CAD FINDINGS: Overall Lung RADS Category: 1 Lung RADS Management Recommendation: Continue annual lung cancer screening. Lung RADS Follow Up Date: 2018-02-18 Lung RADS Nodule ID: Electronically signed by: Cody Morse M.D. 02/18/2017 1:44 PM Dictated Date/Time: 02/18/2017 1:28 PM
== END | disposition home or self-care (01) ==
LOC: C.CTS 12:46
PROVIDERS: ATTEND Family Medicine
DX: Z12.2 Encounter for screening for malignant neoplasm of respiratory organs (principal); F17.200 Nicotine dependence, unspecified, uncomplicated; I51.7 Cardiomegaly; J90 Pleural effusion, not elsewhere classified

== ENCOUNTER → 2017-04-24 | Outpatient (CLI) | payer BC | END | disposition home or self-care (01) | LOC: C.LAB1850 16:15 | PROVIDERS: ATTEND Internal Medicine Cardiovascular Disease | DX: I48.0 Paroxysmal atrial fibrillation (principal) ==

== ENCOUNTER → 2017-07-11 | Outpatient (CLI) | payer BC | END | disposition home or self-care (01) | LOC: C.LAB 09:19 | PROVIDERS: ATTEND Psychiatry & Neurology Psychiatry | DX: Z79.899 Other long term (current) drug therapy (principal) ==

== ENCOUNTER → 2017-11-02 | Outpatient (CLI) | payer BC ==
[2017-11-02 12:53] LABS: ALBUMIN 4.2 gm/dl (3.4-5.0); BLOOD UREA NITROGEN 12 mg/dl (7-18); CALCIUM 9.6 mg/dl (8.5-10.1); CARBON DIOXIDE 30 mmol/L (21-32); CREATININE 0.69 mg/dl (0.60-1.40); GLUCOSE 121 mg/dl (70-99); PHOSPHORUS 3.8 mg/dl (2.5-4.9); POTASSIUM 3.9 mmol/L (3.5-5.1); SODIUM 134 mmol/L (136-145)
== END | disposition home or self-care (01) ==
LOC: C.LAB1850 11:00
PROVIDERS: ATTEND Internal Medicine Nephrology
DX: E83.52 Hypercalcemia (principal)

== ENCOUNTER 2017-11-11 13:28 | Emergency (ER) | payer BC ==
[~2017-11-11] VITALS: Ht 177.8 cm; Wt 104.4 kg
[2017-11-11 13:31] VITALS: TEMP 36.5; Ht 177.8 cm; Wt 104.4 kg
--- NOTE | 2017-11-11 15:27 | DIAGNOSTIC IMAGING REPORT ---
CT OF THE HEAD WITHOUT CONTRAST CLINICAL HISTORY: Right suspected hemotympanum. Anticoagulated. COMPARISON STUDY: Head CT September 01, 2013 and MRI of the brain May 07, 2015. CT DOSE: 729.78 mGycm TECHNIQUE: Helical axial images of the head were obtained without IV contrast. Automated exposure control was utilized for the study. A dose lowering technique was utilized adhering to the principles of ALARA. FINDINGS: No acute intracranial hemorrhage, midline shift or mass effect is present. Ventricular system is stable. Basilar cisterns are patent. There are no extra-axial collections. Scattered white matter hypodensities are unchanged. There are no findings to suggest acute dural sinus thrombosis or acute territorial infarct. A right temporal bone lucency is unchanged and prior exams. This may be postsurgical or reflect an old fracture. Mastoid air cells are clear. A moderate amount of material is noted along the right tympanic membrane. The right scutum may be blunted and there may be minimal soft tissue within Prussak's space. In addition, minimal soft tissue may extend into the anterior right mastoid air cells. IMPRESSION: 1. No acute intracranial findings. 2. Soft tissue/fluid along the right tympanic membrane with possible blunting of the right scutum and minimal extension into the anterior right mastoid air cells. The findings raise the possibility of a cholesteatoma. However, cerumen or hemorrhage could appear similar within the external auditory canal. Electronically signed by: Mitul Christine M.D. 11/11/2017 3:25 PM Dictated Date/Time: 11/11/2017 3:16 PM
--- NOTE | 2017-11-11 15:48 | EMERGENCY ROOM VISIT NOTE ---
History First contact with patient: 14:02 Chief Complaint: EAR PAIN Stated Complaint: RIGHT EAR PLUGGED UP History of Present Illness The patient is a 67 year old male who presents to the Emergency Room via private vehicle with complaints of "right ear plugged up". The patient states that he has been experiencing decrease in ability to hear out of the right ear. He notes that he does not think it is wax but rather an inner ear problem. He states that usually his right ear is the best year to hear out of and now cannot hear very well. He denies any recent fall or trauma. He notes that his Eliquis was increased dose was 3 weeks ago. This is for atrial fibrillation. No speech troubles or weakness. Review of Systems A complete 6-point Review of Systems was discussed with the patient, with pertinent positives and negatives listed in the History of Present Illness. All remaining Review of Systems questions can be considered negative unless otherwise specified. 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 (14) HYPOTHYROIDISM NOS (15) OBESITY, NOS (16) OSTEOARTHROS NOS-PELVIS (17) Parkinson disease (18) PURE HYPERCHOLESTEROLEM (19) Ribs, multiple fractures (20) Splenic laceration Family History Hypertension Social History Smoking Status: Current Every Day Smoker Alcohol Use: none Drug Use: none Marital Status: Housing Status: lives alone Occupation Status: retired Current/Historical Medications Scheduled Apixaban (Eliquis), 5 MG PO BID Atorvastatin (Lipitor), 40 MG PO QPM B-Complex W/ Folic Acid (Super B Complex Maxi), 1 TAB PO QAM Budesonide/Formoterol Fumarate (Symbicort 160-4.5 Mcg/Act), 2 PUFFS INH BID Carvedilol (Coreg), 1 TAB PO BID Cholecalciferol (Vitamin D3), 1,000 UNITS PO DAILY Cholestyramine (Cholestyramine), 1 DOSE PO QAM Divalproex Sodium (Depakote Er), 500 MG PO QPM Divalproex Sodium (Depakote Er), 1,000 MG PO QAM Doxycycline Hyclate (Doxycycline Hyclate), 100 MG PO BID Finasteride (Finasteride), 5 MG PO QAM Fish Oil ([place]-3), 1,000 MG PO QAM Furosemide (Lasix), 1 TAB PO DAILY Garlic (Garlic), 500 MG PO DAILY Eejdoilqatf-Rhenmqulbmt-Gd Cho (Glucosamine Chondroitin &), 1 TAB PO QAM Levocarnitine L-Tartrate (L-Carnitine), 1,000 MG PO TID Levothyroxine Sodium (Levothyroxine Sodium), 50 MCG PO QAM Misc Natural Products (Osteo Bi-Flex Advanced Do), 1 TAB PO QAM Multivitamin (Multivitamin), 1 TAB PO QAM Potassium Chloride (Potassium Chloride Er), 2 TAB PO DAILY Tamsulosin Hcl (Flomax), 0.4 MG PO QAM Tiotropium Camby (Spiriva Handihaler), 1 PUFF INH QAM Scheduled PRN Acetaminophen (Tylenol Extra Strength), 500-1,000 MG PO Q6H PRN for Pain Physical Exam Vital Signs Date Time Temp Pulse Resp B/P (MAP) Pulse Ox O2 Delivery O2 Flow Rate FiO2 11/11/17 17:18 56 16 118/66 95 11/11/17 16:00 56 16 118/66 95 Room Air 11/11/17 13:31 36.5 93 18 123/78 98 Room Air Physical Exam VITAL SIGNS - Vital signs and nursing notes were reviewed. Stable. Afebrile. GENERAL -67-year-old male appearing his stated age who is in no acute distress. Communicates well with provider and answers questions appropriately. SKIN - Without rashes. No meningeal or petechial rash. HEAD - NC/AT. EYES - PERRL with EOMI bilaterally. Sclera anicteric. EARS - No deformities of external structures noted on gross examination bilaterally. Left ear unremarkable. Right ear does reveal some dependent cerumen in the canal with evidence of hemotympanum. NOSE - Midline and without cyanosis. No epistaxis or purulent drainage noted. MOUTH/OROPHARYNX - Without perioral cyanosis. No blood in the posterior pharynx. LUNGS - Chest wall symmetric without accessory muscle use, intercostals retractions, or central cyanosis. Normal vesicular breath sounds CTA B/L. No wheezes, rales, or rhonchi appreciated. CARDIAC -irregularly irregular rhythm. No murmur, rubs, or gallops appreciated. Medical Decision & Procedures ER Provider Diagnostic Interpretation: CT OF THE HEAD WITHOUT CONTRAST CLINICAL HISTORY: Right suspected hemotympanum. Anticoagulated. COMPARISON STUDY: Head CT September 01, 2013 and MRI of the brain May 07, 2015. CT DOSE: 729.78 mGycm TECHNIQUE: Helical axial images of the head were obtained without IV contrast. Automated exposure control was utilized for the study. A dose lowering technique was utilized adhering to the principles of ALARA. FINDINGS: No acute intracranial hemorrhage, midline shift or mass effect is present. Ventricular system is stable. Basilar cisterns are patent. There are no extra-axial collections. Scattered white matter hypodensities are unchanged. There are no findings to suggest acute dural sinus thrombosis or acute territorial infarct. A right temporal bone lucency is unchanged and prior exams. This may be postsurgical or reflect an old fracture. Mastoid air cells are clear. A moderate amount of material is noted along the right tympanic membrane. The right scutum may be blunted and there may be minimal soft tissue within Prussak's space. In addition, minimal soft tissue may extend into the anterior right mastoid air cells. IMPRESSION: 1. No acute intracranial findings. 2. Soft tissue/fluid along the right tympanic membrane with possible blunting of the right scutum and minimal extension into the anterior right mastoid air cells. The findings raise the possibility of a cholesteatoma. However, cerumen or hemorrhage could appear similar within the external auditory canal. Electronically signed by: Mitul Christine M.D. 11/11/2017 3:25 PM Dictated Date/Time: 11/11/2017 3:16 PM Medical Decision Patient was seen and evaluated as above in room D1. Review was performed of nursing notes and vital signs. After obtaining a thorough history and physical examination the above work up was performed. He presents with decreased hearing out of the right ear. On exam he has hemotympanum. This is likely spontaneous with his Eliquis use. CT was also obtained and I believe correlates with this. I called the on-call ear nose and throat doctor, and spoke with Dr. Putnam. He will see the patient in the outpatient setting. We discussed whether or not to discontinue the Eliquis for short period of time. He recommended I discuss the case with the person who prescribed this. I then spoke with . It was felt that the patient could hold the dose tonight but tonight only. He needs to follow-up as soon as possible with ear nose and throat to track clinical progress of the ear. He has a high risk for events of which would be of higher risk/likelihood by discontinuing the Eliquis. Patient was informed he is to hold tonight and tonight only dose. He verbalized understanding that he will begin this again tomorrow morning. He is to call the ENT doctor tomorrow. I offered to call for him and he notes that he will call himself. The patient was educated upon management, educated upon todays findings/results, educated upon symptoms in which to return, had questions answered prior to discharge, and was discharged home in good condition. Case was discussed with the attending physician. I attest that I have personally reviewed the patient medication list. I attest that I have reviewed the patient's blood pressure and it was found to be elevated likely secondary to situation. In the evaluation and treatment of this patient the following differential diagnoses were entertained: Hemotympanum, traumatic versus atraumatic, cerumen impaction, eustachian tube dysfunction, among others. Impression Primary Impression: Hematotympanum of right ear Departure Information Dispostion Home / Self-Care Condition GOOD Referrals Helen Lion M.D. (PCP) Nicolas Putnam D.O. Patient Instructions My [facility] Additional Instructions You were seen in the emergency department for blood behind your right eardrum. I believe this is what is causing you to experience the decreased hearing. I did discuss this with your ear nose and throat doctor, Dr. Putnam. Please call his office first thing tomorrow morning to schedule follow-up. Please also ask them about your Eliquis. I did speak with Dr. Nguyen, your police chief deputy. We agreed that you should hold your Eliquis tonight, and tonight only. Please resume this tomorrow morning as prescribed. Please call your family doctor to schedule follow-up as well. Please rest and stay well-hydrated. Please return with any new/concerning symptoms.
--- NOTE | 2017-11-11 16:40 | EMERGENCY ROOM VISIT NOTE ---
ED Visit Note First contact with patient: 14:20 The patient was seen and examined with Frank Hendrix PA-C. I agree with the history, physical and findings. Please see the note for disposition and details.
[2017-11-11 17:18] VITALS: BP 118/66; PULSE 56; O2SAT 95
== END 2017-11-11 17:15 | disposition home or self-care (01) ==
LOC: C.EDB 13:29 → C.EDD 17:15
DX: H74.8X1 Other specified disorders of right middle ear and mastoid (principal); I48.91 Unspecified atrial fibrillation; I71.4 Abdominal aortic aneurysm, without rupture; F31.9 Bipolar disorder, unspecified; I50.9 Heart failure, unspecified; I11.0 Hypertensive heart disease with heart failure; I62.03 Nontraumatic chronic subdural hemorrhage; E03.9 Hypothyroidism, unspecified; E78.5 Hyperlipidemia, unspecified; G20 Parkinson's disease; F17.200 Nicotine dependence, unspecified, uncomplicated; Z79.01 Long term (current) use of anticoagulants; Z79.899 Other long term (current) drug therapy; Z79.51 Long term (current) use of inhaled steroids